=== PATIENT | female | born 1945 | race Caucasian/White ===

== ENCOUNTER → 2020-02-06 10:00 | Outpatient (BNVA) | payer MEDICARE, OTHER, SELFPAY | PROVIDERS: PCP Internal Medicine; Visit Provider Nurse Practitioner Gerontology | DX: M81.0 Age-related osteoporosis without current pathological fracture (principal) | CPT/HCPCS: 96401; 96402 ==

== ENCOUNTER → 2020-03-06 12:03 | Outpatient (BNVA) | payer MEDICARE, OTHER, SELFPAY | PROVIDERS: PCP Internal Medicine; Visit Provider Internal Medicine Endocrinology, Diabetes & Metabolism | DX: Z13.89 Encounter for screening for other disorder (principal) | CPT/HCPCS: Q3014 ==

== ENCOUNTER 2020-04-04 12:00 | Outpatient (RCR) | payer MEDICARE, OTHER, SELFPAY | END 2020-04-05 12:51 | disposition other institution (70) | LOC: HO.PT 12:00 | PROVIDERS: PCP Internal Medicine; Visit Provider Internal Medicine | DX: R26.81 Unsteadiness on feet (principal); R53.1 Weakness; Z98.890 Other specified postprocedural states; C85.89 Other specified types of non-Hodgkin lymphoma, extranodal and solid organ sites | CPT/HCPCS: 97110; 97112; 97116; 97163; 97530 ==

== ENCOUNTER 2020-05-23 10:50 | Outpatient (REF) | payer MEDICARE, OTHER, SELFPAY ==
--- NOTE | ~2020-05-23 | MM_ITS ---
EXAMINATION: MM SCREENING DIGITAL MAMMOGRAPHY, BILATERAL CLINICAL INFORMATION: Screening. Asymptomatic. The lifetime risk of breast cancer based on the Tyrer-Cuzick Model is 3%. COMPARISON: Mammography: 04/15/2018, 11/11/2016 TECHNIQUE: Digital mammography is performed in craniocaudal and mediolateral oblique views along with computer-aided detection (CAD). Technically challenging exam, patient in wheelchair, 2 technologists required for positioning. Exam tailored to patient capabilities. FINDINGS: There are scattered areas of fibroglandular density (ACR BI-RADS breast composition Category b). There are no significant masses, abnormal calcifications, or other abnormalities. Breast tissue composition borders on predominantly fatty. Stromal and fibroglandular densities are stable. There is shunt tubing again seen overlying the posterior medial right breast. MM/MM screening mammo BI IMPRESSION: No mammographic evidence of malignancy. ASSESSMENT: BI-RADS 2: Benign RECOMMENDATION: Routine annual mammography screening. This patient's information was entered into a reminder system with a target due date for their next mammogram.
--- NOTE | ~2020-05-23 | MM_ITS ---
EXAMINATION: BONE DENSITOMETRY CLINICAL INDICATION: Age-related osteoporosis without current pathological fracture. Marked L5 vertebral compression on prior CT. COMPARISON: Previous BD dated 04/15/2018 and baseline BD dated 11/30/2005. CT abdomen and pelvis 07/16/2019. TECHNIQUE: Using a [employer] DXA System (software version: 13.1) manufactured by [employer], dual-energy x-ray absorptiometry was performed of the lumbar spine and left hip. The images are of good technical quality. Summary results are attached. FINDINGS: AP SPINE L2-L4 (excluding L1): The data of L1-L4 has been changed to exclude the L1 vertebral body, because degenerative changes at this level may cause overestimation of lumbar spine density. Current: BMD 0.973 g/cm2, Z-score -0.5, T-score -1.9, osteopenia, 8.2% decrease from previous, 23.0% increase from baseline (<5% change is not significant). Prior: BMD 1.060 g/cm2. Baseline: BMD 0.791 g/cm2. LEFT FEMUR, NECK: Current: BMD 0.537 g/cm2, Z-score -1.9, T-score -3.6, osteoporosis. Prior: BMD 0.555 g/cm2. Baseline: BMD 0.719 g/cm2. LEFT FEMUR, TOTAL: Current: BMD 0.542 g/cm2, Z-score -2.3, T-score -3.7, osteoporosis, 9.5% decrease from previous, 27.2% decrease from baseline (<5% change is not significant). Prior: BMD 0.599 g/cm2. Baseline: BMD 0.745 g/cm2. IDENTIFIED RISK FACTORS: Osteoporosis, family history (parental hip fracture), history of fracture (adult). Early menopause, secondary osteoporosis, hysterectomy. HISTORY OF FRACTURE: Spine, femur/hip, humerus/shoulder. Other. MEDICATIONS: Prolia. Calcium supplements or multivitamin, vitamin D. MM/XR DEXA axial skeleton IMPRESSION: 1. DIAGNOSIS: Severe osteoporosis based on the lowest T-score value of -3.7 in the total femur and fracture history applying World Health Organization criteria. 2. 10-YEAR FRACTURE RISK PREDICTION, FRAX: Major osteoporotic fracture (clinical spine, forearm, hip or shoulder) 65.8%. Hip fracture 54.6%. 3. Treatment Recommendations: NOF guidelines recommend consideration for treatment in postmenopausal women and men age 50 and older presenting with the following: -A hip or vertebral (clinical or morphometric) fracture. -T-score less than or equal to -2.5 at the femoral neck or spine after appropriate evaluation to exclude secondary causes. -Low bone mass at the hip or spine and a 10-year fracture probability by FRAX of greater than or equal to 3% for hip fracture or greater than or equal to 20% for major osteoporotic fracture based on the [place] adapted WHO algorithm. 4. Other Recommendations: All treatment decisions require clinical judgment and consideration of individual patient factors, including patient preferences, comorbidities, previous drug use, risk factors not captured in the FRAX model (e.g. frailty, falls, vitamin D deficiency, increased bone turnover, interval significant decline in bone density) and possible under or overestimation of fracture risk by FRAX. Additional medical evaluation for secondary cause of low bone mineral density may be appropriate. FUTURE SCAN RECOMMENDATION: People with diagnosed cases of osteoporosis or at high risk for fracture should have regular bone mineral density tests. For patients eligible for Medicare, routine testing is allowed once every 2 years. The testing frequency can be increased to one year for patients who have rapidly progressing disease, those who are receiving or discontinuing medical therapy to restore bone mass, or have additional risk factors.
== END 2020-05-23 10:51 | disposition home or self-care (01) ==
LOC: HO.MAMMO 10:50
PROVIDERS: Visit Provider Internal Medicine Endocrinology, Diabetes & Metabolism
DX: M81.0 Age-related osteoporosis without current pathological fracture (principal); Z12.31 Encounter for screening mammogram for malignant neoplasm of breast; Z78.0 Asymptomatic menopausal state; Z79.899 Other long term (current) drug therapy; Z90.710 Acquired absence of both cervix and uterus
CPT/HCPCS: 77067; 77080

== ENCOUNTER → 2020-09-02 13:16 | Outpatient (BNVA) | payer MEDICARE, OTHER, SELFPAY | PROVIDERS: PCP Internal Medicine; Visit Provider Internal Medicine Endocrinology, Diabetes & Metabolism | DX: M81.0 Age-related osteoporosis without current pathological fracture (principal) | CPT/HCPCS: 96372; 99212 ==

== ENCOUNTER 2020-09-17 10:27 | Outpatient (REF) | payer MEDICARE, OTHER, SELFPAY ==
[2020-09-22 00:07] LABS: N-Telopeptide 29 (see note); NTXCreaRU 67 mg/dL (20-275)
== END 2020-09-17 10:28 | disposition home or self-care (01) ==
LOC: HO.10HDLNP 10:27
PROVIDERS: Visit Provider Internal Medicine Endocrinology, Diabetes & Metabolism
DX: M81.0 Age-related osteoporosis without current pathological fracture (principal)
CPT/HCPCS: 82523

== ENCOUNTER 2020-11-08 08:48 | Outpatient (REF) | payer MEDICARE, OTHER, SELFPAY ==
--- NOTE | ~2020-11-08 | CT_ITS ---
EXAMINATION: CT HEAD WITHOUT CONTRAST CLINICAL INFORMATION: Lymphoma. COMPARISON: CT brain 08/21/2019. TECHNIQUE: Contiguous axial imaging was performed from the skull base to vertex without intravenous administration of contrast. This CT examination was performed using dose optimization techniques as appropriate, variously including the following: *Automated exposure control *Adjustment of mA and/or kV according to patient size (this includes techniques or standardized protocols for targeted exams where dose is matched to indication/reason for exam; i.e. extremities or head) *Use of iterative reconstruction technique DLP: 1142 mGy-cm FINDINGS: There is no evidence of acute intracranial hemorrhage or territorial infarction. No abnormal mass effect or midline shift is seen. [place] to white matter differentiation is well preserved. No extra-axial fluid collections are identified. The lateral ventricles are symmetrical but moderately enlarged. There is a right ventriculostomy catheter extending from the right frontal region across the midline into the left lateral ventricle. It is similar to previous study. There is diffuse periventricular hypodensity in both cerebral hemispheres without mass effect. Several aniket holes are seen along the right and left frontal bones. The osseous structures and soft tissues are otherwise normal. The mastoid air cells and visualized portions of the paranasal sinuses are well aerated. 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 Distended lateral ventricles similar to previous study. Diffuse periventricular hypodensity in both cerebral hemispheres without mass effect.
== END 2020-11-08 08:49 | disposition home or self-care (01) ==
LOC: HO.CT 08:48
PROVIDERS: PCP Internal Medicine; Visit Provider Psychiatry & Neurology Neurology
DX: C85.89 Other specified types of non-Hodgkin lymphoma, extranodal and solid organ sites (principal)
CPT/HCPCS: 70450

== ENCOUNTER 2020-12-12 08:20 | Outpatient (REF) | payer MEDICARE, OTHER, SELFPAY ==
[2020-12-12 10:44] LABS: Anion Gap 11 (12-20); Blood Urea Nitrogen 19 mg/dL (9-16); Calcium 9.6 mg/dL (8.4-10.2); Carbon Dioxide 31 mmol/L (22-29); Chloride 102 mmol/L (96-108); Estimated Glomerular Filt Rate > 60; Glucose Fasting 204 mg/dL (60-99); Potassium 4.3 mmol/L (3.3-5.1); Sodium 140 mmol/L (135-145)
[2020-12-12 10:49] LABS: Estimated Average Glucose 183 mg/dL
== END 2020-12-12 08:21 | disposition home or self-care (01) ==
LOC: HO.10HDL 08:20
PROVIDERS: Visit Provider Internal Medicine
DX: E11.9 Type 2 diabetes mellitus without complications (principal); I10 Essential (primary) hypertension
CPT/HCPCS: 36415; 80048; 83036

== ENCOUNTER → 2021-07-02 13:59 | Outpatient (BNVA) | payer MEDICARE, OTHER, SELFPAY | PROVIDERS: PCP Internal Medicine; Visit Provider Internal Medicine Endocrinology, Diabetes & Metabolism | DX: M81.0 Age-related osteoporosis without current pathological fracture (principal) | CPT/HCPCS: 99212 ==

== ENCOUNTER 2021-08-05 14:44 | Outpatient (REF) | payer MEDICARE, OTHER, SELFPAY ==
[2021-08-05 08:45] LABS: MANUAL DIFF FLAG NO
[2021-08-05 08:51] LABS: Basophils Absolute Auto 0.1 X10*3/uL (0.0-0.2); Basophils Percent Auto 0.9 % (0-2); Eosinophils Absolute Auto 0.3 X10*3/uL (0.0-0.4); Eosinophils Percent Auto 3.8 % (0-4); Hematocrit 41.2 % (37.0-47.0); Hemoglobin 13.4 g/dl (12.0-16.0); Imm Gran Abs Auto 0.02 X10*3/uL (0.00-0.03); Imm Gran Pct Auto 0.3 % (0.0-0.4); Lymphocytes Absolute Auto 1.9 X10*3/uL (1.2-4.9); Lymphocytes Percent Auto 25.2 % (20-40); Mean Corpuscular HGB Conc 32.5 g/dl (31.0-35.0); Mean Corpuscular Hemoglobin 29.6 pg (27.0-33.0); Mean Corpuscular Volume 90.9 fL (80.0-98.0); Mean Platelet Volume 11.2 fL (9.4-12.3); Monocytes Absolute Auto 0.6 X10*3/uL (0.1-1.2); Monocytes Percent Auto 7.5 % (2-11); Neutrophils Absolute Auto 4.6 x10*3/uL (2.0-8.3); Neutrophils Percent Auto 62.3 % (45-73); Platelet Count 122 X10*3/uL (160-400); Red Blood Count 4.53 X10*6/uL (4.20-5.50); Red Cell Distribution Width 13.2 % (11.0-16.0); White Blood Count 7.5 X10*3/uL (4.8-10.8)
[2021-08-05 09:06] LABS: Estimated Average Glucose 148 mg/dL; Hemoglobin A1c % 6.8 %
[2021-08-05 09:08] LABS: Alanine Aminotransferase 33 U/L (0-31); Albumin Level 4.1 g/dL (3.5-5.0); Alkaline Phosphatase 123 U/L (39-117); Anion Gap 11 (12-20); Aspartate Amino Transferase 20 U/L (5-31); Bilirubin Total 0.5 mg/dL (0.0-1.0); Blood Urea Nitrogen 24 mg/dL (9-16); Carbon Dioxide 29 mmol/L (22-29); Chloride 104 mmol/L (96-108); Cholesterol 145 mg/dL; Estimated Glomerular Filt Rate > 60; Glucose Random 159 mg/dL (60-115); HDL Cholesterol 47 mg/dL; Iron 61 mcg/dL (30-160); LDL Cholesterol Calculated 82 mg/dl; Percent Iron Saturation 21 % (15-50); Potassium 4.1 mmol/L (3.3-5.1); Sodium 140 mmol/L (135-145); Total Iron Binding Capacity 292 mcg/dL (228-428); Total Protein 7.2 g/dL (6.5-8.0); Triglycerides 84 mg/dL; Unsaturated Iron Binding 231 ug/dL
[2021-08-05 09:29] LABS: Ferritin 76 ng/mL (10-250); Thyroid Stimulating Hormone 1.38 uIU/mL (0.32-4.0); Vitamin D 25-OH Total 63.6 ng/mL (>30)
[2021-08-05 09:31] LABS: Vitamin B12 712 pg/mL (200-900)
== END 2021-08-05 14:45 | disposition home or self-care (01) ==
LOC: HO.LHD 14:44
PROVIDERS: Visit Provider Internal Medicine
DX: R19.5 Other fecal abnormalities (principal); E11.9 Type 2 diabetes mellitus without complications; E78.00 Pure hypercholesterolemia, unspecified; E55.9 Vitamin D deficiency, unspecified; E53.8 Deficiency of other specified B group vitamins
CPT/HCPCS: 36415; 80053; 80061; 82306; 82607; 82728; 83036; 83540; 84443; 85025

== ENCOUNTER 2021-08-08 10:36 | Outpatient (REF) | payer MEDICARE, OTHER, SELFPAY ==
--- NOTE | ~2021-08-08 | MM_ITS ---
EXAMINATION: MM SCREENING DIGITAL MAMMOGRAPHY, BILATERAL CLINICAL INFORMATION: Screening. Asymptomatic. The lifetime risk of breast cancer based on the Tyrer-Cuzick Model is 3%. COMPARISON: Mammography: 05/23/2020, 04/15/2018, 11/11/2016 TECHNIQUE: Digital mammography is performed in craniocaudal and mediolateral oblique views along with computer-aided detection (CAD). Technically challenging exam requiring 2 technologists. Patient in wheelchair. Exam tailored to patient capabilities. 2-D FFDM imaging performed. FINDINGS: There are scattered areas of fibroglandular density (ACR BI-RADS breast composition Category b). Background stromal markings are similar to prior studies. No developing density or interval architectural abnormality. There are some uniform punctate regional calcifications medial right breast similar to prior exams. Shunt catheter tubing again noted overlying the posterior medial right breast. No skin thickening or coarsening of the Misael's ligaments. MM/MM screening mammo BI IMPRESSION: -No significant changes from prior exams. -Technically challenging exam, tailored to patient capabilities. ASSESSMENT: BI-RADS 2: Benign RECOMMENDATION: Routine annual mammography screening. This patient's information was entered into a reminder system with a target due date for their next mammogram.
== END 2021-08-08 10:37 | disposition home or self-care (01) ==
LOC: HO.MAMMO 10:36
PROVIDERS: PCP Internal Medicine; Visit Provider Internal Medicine
DX: Z12.31 Encounter for screening mammogram for malignant neoplasm of breast (principal)
CPT/HCPCS: 77063; 77067

== ENCOUNTER → 2021-08-14 12:16 | Outpatient (BNVA) | payer MEDICARE, OTHER, SELFPAY | PROVIDERS: PCP Internal Medicine; Visit Provider Internal Medicine Endocrinology, Diabetes & Metabolism | DX: M81.0 Age-related osteoporosis without current pathological fracture (principal) | CPT/HCPCS: 96372; J3111 ==

== ENCOUNTER → 2021-09-15 09:25 | Outpatient (BNVA) | payer MEDICARE, OTHER, SELFPAY | PROVIDERS: PCP Internal Medicine; Visit Provider Internal Medicine | DX: M81.0 Age-related osteoporosis without current pathological fracture (principal) | CPT/HCPCS: 96372; J3111 ==

== ENCOUNTER → 2021-10-16 11:53 | Outpatient (BNVA) | payer MEDICARE, OTHER, SELFPAY | PROVIDERS: PCP Internal Medicine; Visit Provider Internal Medicine Endocrinology, Diabetes & Metabolism | DX: M81.0 Age-related osteoporosis without current pathological fracture (principal) | CPT/HCPCS: 96372; J3111 ==

== ENCOUNTER 2021-11-03 06:36 | Day surgery (SDC) | payer MEDICARE, OTHER, SELFPAY ==
[2021-10-29 10:32] VITALS: BMI 26.6
--- NOTE | 2021-10-31 08:38 | HO.ANESPROP2 ---
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 Mother No problems noted. Surgical History Surgical History History of appendectomy History of brain shunt History of hip surgery History of lumbar laminectomy Hx of colonoscopy Hx of hysterectomy Social History Social History Patient Tobacco Use Status: Former Tobacco user Tobacco use type: Cigarette Cigarettes Per Day: 20 Years Smoked: 12 Are you DNR?: No Advance Directives: No Advance Directives Information Provided: Yes Recently lost weight without trying: No Nutrition Risks: No Nutritional Risk Meds Allergies Allergy/AdvReac Type Severity Reaction Status Date / Time Penicillins [PENICILLINS] Allergy Unknown Swelling Verified 11/03/21 07:11 phenytoin [From DILANTIN] Allergy Unknown Hives Verified 11/03/21 07:11 Home Medications Medication Instructions Recorded Confirmed Last Taken Type ascorbate calcium (vitamin C) 500 1,000 mg PO BID 03/06/20 10/29/21 11/02/21 History mg tablet blood sugar diagnostic #10 ea 03/06/20 09/02/20 Unknown History buspirone 5 mg tablet 5 mg PO DAILY 03/06/20 11/03/21 11/03/21 History carvedilol 12.5 mg tablet 12.5 mg PO BID 03/06/20 10/29/21 11/03/21 History metformin 500 mg tablet,extended 500 mg PO DAILY 03/06/20 10/29/21 11/02/21 History release 24 hr nystatin 100,000 unit/gram topical 1 appl topical QID 0110/29/21 11/02/21 History powder simvastatin 20 mg tablet 20 mg PO BEDTIME 03/06/20 10/29/21 11/02/21 History lisinopril 5 mg tablet 5 mg PO DAILY 09/02/20 10/29/21 11/02/21 History oxybutynin chloride 5 mg tablet 5 mg PO BEDTIME 09/02/20 10/29/21 11/02/21 History sitagliptin 25 mg tablet (Januvia) 25 mg PO DAILY 07/02/21 10/29/21 11/02/21 History Exam Exam Date and Time: October 31, 2021 0838 Height,Weight and Vital Signs: Height 5 ft 6 in Weight 74.843 kg Pertinent Lab Results Pertinent Lab Results: Laboratory Tests 08/05/21 08/05/21 08:18 08:18 WBC 7.5 Hgb 13.4 Hct 41.2 Plt Count 122 L Sodium 140 Potassium 4.1 Chloride 104 Carbon Dioxide 29 BUN 24 H Creatinine 0.81 Narrative Narrative: CT head/brain wo con 2020 IMPRESSION: Right SPECIAL EDUCATION SUPERINTENDENT shunt catheter tip in the left lateral ventricle, stable. Distended lateral ventricles similar to previous study. ? Diffuse periventricular hypodensity in both cerebral hemispheres without mass effect. Assessment and Plan Assessment Anesthesia Assessment: Chart Reviewed Documented by User: Delmi Ramírez MD 11/03/21 07:56 [facility] Active Problems Active Problems: All Active Problems (Updated 10/29/21 @ 10:27 by Tammi Bravo RN) Osteoporosis (Acute) H/o brain tumor. 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 Mother No problems noted. Family history of problems with anesthesia: No Surgical History Surgical History History of appendectomy History of brain shunt History of hip surgery History of lumbar laminectomy Hx of colonoscopy Hx of hysterectomy History of Problems with Anesthesia: No Social History Social History Patient Tobacco Use Status: Former Tobacco user Tobacco use type: Cigarette Cigarettes Per Day: 20 Years Smoked: 12 Are you DNR?: No Advance Directives: No Advance Directives Information Provided: Yes Recently lost weight without trying: No Nutrition Risks: No Nutritional Risk Meds Allergies Allergy/AdvReac Type Severity Reaction Status Date / Time Penicillins [PENICILLINS] Allergy Unknown Swelling Verified 11/03/21 07:11 phenytoin [From DILANTIN] Allergy Unknown Hives Verified 11/03/21 07:11 Home Medications Medication Instructions Recorded Confirmed Last Taken Type ascorbate calcium (vitamin C) 500 1,000 mg PO BID 03/06/20 10/29/21 11/02/21 History mg tablet blood sugar diagnostic #10 ea 03/06/20 09/02/20 Unknown History buspirone 5 mg tablet 5 mg PO DAILY 03/06/20 11/03/21 11/03/21 History carvedilol 12.5 mg tablet 12.5 mg PO BID 03/06/20 10/29/21 11/03/21 History metformin 500 mg tablet,extended 500 mg PO DAILY 03/06/20 10/29/21 11/02/21 History release 24 hr nystatin 100,000 unit/gram topical 1 appl topical QID 03/06/20 10/29/21 11/02/21 History powder simvastatin 20 mg tablet 20 mg PO BEDTIME 03/06/20 10/29/21 11/02/21 History lisinopril 5 mg tablet 5 mg PO DAILY 09/02/20 10/29/21 11/02/21 History oxybutynin chloride 5 mg tablet 5 mg PO BEDTIME 09/02/20 10/29/21 11/02/21 History sitagliptin 25 mg tablet (Januvia) 25 mg PO DAILY 07/02/21 10/29/21 11/02/21 History Exam Height,Weight and Vital Signs: Height 5 ft 6 in Weight 74.843 kg Vital Signs Temp Pulse Resp BP Pulse Ox O2 Del Method 11/03/21 06:39 97.5 F 86 20 154/83 H 97 Room Air Pertinent Lab Results Pertinent Lab Results: Laboratory Tests 08/05/21 08/05/21 08:18 08:18 WBC 7.5 Hgb 13.4 Hct 41.2 Plt Count 122 L Sodium 140 Potassium 4.1 Chloride 104 Carbon Dioxide 29 BUN 24 H Creatinine 0.81 Lab Results 11/03/21 Range/Units 06:49 POC Glucose 143 H (60-115) mg/dL Airway Mallampati Class: III TM Dist: >3cm Neck ROM: Full Loose/Missing/Broken Teeth: No Heart: RRR Lungs: CTAB Assessment and Plan Assessment Anesthesia Assessment: Anesthesia Plan Discussed Final Anesthetic Review Family History of Problems with Anesthesia: No History of Problems with Anesthesia: No NPO: Yes ASA Class: III Final Preanesthetic Review: No Changes in Pt Med Stat, Meds/Allgs Chart Reviewed, Consent Obtained/Reviewed and Anes Risks/Benef Reviewed Patient Risk: Intermediate Procedure Risk: Low Assessment/Block/Sedation in SS: Assess/Block/Sedation-SS Anesthetic Plan Anesthetic Plan: MAC: Disposition: Standard PACU
[2021-11-03 06:39] VITALS: BP 154/83; PULSE 86; RESP 20; TEMP 36.4; O2SAT 97
[2021-11-03 06:53] LABS: Glucose, Whole Blood 143 mg/dL (60-115)
[2021-11-03] MEDS: Lactated Ringers 1,000 ML 100 ML IVCONT (07:08)
[2021-11-03 08:37] VITALS: BP 144/75; PULSE 86; RESP 16; TEMP 36.7; O2SAT 100
--- NOTE | 2021-11-03 08:40 | PM.OP ---
Brief Operative Note Date of Service: 11/03/21 Pre-op diagnosis: Heme + stool Post-op diagnosis: other (Polyp, Lipoma) Procedure: Colonoscopy to the cecum with bx, and hot snare polypectomy Surgeon: Evaristo Reyes Anesthesia: MAC Was an Public Health Training Assistant used for this Procedure?: No Estimated blood loss (mL): 2.0 Pathology: other (A. Lipoma at Hepatic flexure B. Rectal polyp) Condition: stable Disposition: PACU
[2021-11-03 08:52] VITALS: BP 156/81; PULSE 85; RESP 18; TEMP 36.7; O2SAT 96
--- NOTE | 2021-11-03 09:10 | OP_ITS ---
SURGEON: Evaristo Reyes MD INDICATIONS: The patient presents for evaluation of heme-positive stool. Full consent has been obtained from her for this, including risks of bleeding and perforation. PREOPERATIVE DIAGNOSIS: Heme-positive stool. POSTOPERATIVE DIAGNOSIS: Heme-positive stool, small rectal polyp, lipoma, diverticulosis, and internal hemorrhoids PROCEDURE PERFORMED: Colonoscopy to the cecum with hot snare polypectomy and biopsy. ESTIMATED BLOOD LOSS: COMPLICATIONS: ANESTHESIA: Monitored anesthesia care. ASSISTANTS: SPECIMENS: DESCRIPTION OF PROCEDURE: The patient was placed in the left lateral decubitus position. The digital rectal exam revealed no abnormalities. The Olympus video pediatric colonoscope was entered into the rectum and advanced easily to the cecum. Once in the cecum, I did identify a normal-appearing cecal pouch with appendiceal orifice, and a normal-appearing ileocecal valve. The entire cecum was well visualized and appeared normal. The ileocecal valve appeared normal. The scope was then slowly withdrawn assessing all mucosal surfaces carefully. Preparation was excellent. In the area of the hepatic flexure was a yellowish soft lipoma, which was biopsied twice. There was no sign of any mucosal abnormality. In the rectum was an approximately 6 to 8 mm polyp, which was removed by hot snare polypectomy, recovered by suction. The polypectomy site appeared clean, without any sign of residual polyp nor bleeding. I did not visualize any other polyps, colitis, nor angiodysplasia. There was a mild amount of sigmoid diverticulosis. In the rectum, the scope was retroflexed visualizing internal hemorrhoids, but no other pathology. The rectal mucosa appeared normal. Scope was straightened and withdrawn from the patient. She tolerated the procedure well and was returned to the recovery area in stable condition. IMPRESSION: 1. One rectal polyp, status post hot snare polypectomy. 2. Lipoma, status post biopsy. 3. Diverticulosis. 4. Internal hemorrhoids. PLAN: The results of the pathology will be checked. Given these minimal findings and her age, I do not think, she would need any further colonoscopies from a screening standpoint in the future. She was advised not to use any aspirin or NSAIDs for 1 week. She will see me on a p.r.n. basis. This has all been discussed with her . MD MARCI Cartagena/VICTORIANO / [phone]
== END 2021-11-03 09:24 | disposition home or self-care (01) ==
PROVIDERS: PCP Internal Medicine; Visit Provider Internal Medicine
PROC: 0DJD8ZZ Inspection of Lower Intestinal Tract, Via Natural or Artificial Opening Endoscopic (ICD-10-PCS; CPT 45378; principal; 2021-11-03 07:30)
DX: R19.5 Other fecal abnormalities (principal); D17.5 Benign lipomatous neoplasm of intra-abdominal organs; K62.1 Rectal polyp; K57.30 Diverticulosis of large intestine without perforation or abscess without bleeding; K64.8 Other hemorrhoids; E11.9 Type 2 diabetes mellitus without complications; E78.5 Hyperlipidemia, unspecified; G57.91 Unspecified mononeuropathy of right lower limb; M81.0 Age-related osteoporosis without current pathological fracture; Z79.84 Long term (current) use of oral hypoglycemic drugs; Z79.899 Other long term (current) drug therapy; Z85.72 Personal history of non-Hodgkin lymphomas; Z92.21 Personal history of antineoplastic chemotherapy; Z92.3 Personal history of irradiation; Z98.890 Other specified postprocedural states; Z87.891 Personal history of nicotine dependence
CPT/HCPCS: 45385; 45380; 82947; 88305; 88342

== ENCOUNTER → 2021-11-18 10:52 | Outpatient (BNVA) | payer MEDICARE, OTHER, SELFPAY | PROVIDERS: PCP Internal Medicine; Visit Provider Internal Medicine Endocrinology, Diabetes & Metabolism | DX: M81.0 Age-related osteoporosis without current pathological fracture (principal) | CPT/HCPCS: 96372; J3111 ==

== ENCOUNTER → 2021-12-16 10:59 | Outpatient (BNVA) | payer MEDICARE, OTHER, SELFPAY | PROVIDERS: PCP Internal Medicine; Visit Provider Internal Medicine Endocrinology, Diabetes & Metabolism | DX: M81.0 Age-related osteoporosis without current pathological fracture (principal) | CPT/HCPCS: 96372; J3111 ==

== ENCOUNTER → 2021-12-31 14:00 | Outpatient (BNVA) | payer MEDICARE, OTHER, SELFPAY | PROVIDERS: PCP Internal Medicine; Visit Provider Internal Medicine Endocrinology, Diabetes & Metabolism | DX: M81.0 Age-related osteoporosis without current pathological fracture (principal); Z99.3 Dependence on wheelchair | CPT/HCPCS: 99212 ==

== ENCOUNTER → 2022-01-15 10:51 | Outpatient (BNVA) | payer MEDICARE, OTHER, SELFPAY | PROVIDERS: PCP Internal Medicine; Visit Provider Internal Medicine Endocrinology, Diabetes & Metabolism | DX: M81.0 Age-related osteoporosis without current pathological fracture (principal) | CPT/HCPCS: 96372; J3111 ==

== ENCOUNTER → 2022-02-18 10:53 | Outpatient (BNVA) | payer MEDICARE, OTHER, SELFPAY | PROVIDERS: PCP Internal Medicine; Visit Provider Internal Medicine Endocrinology, Diabetes & Metabolism | DX: M81.0 Age-related osteoporosis without current pathological fracture (principal) | CPT/HCPCS: 96372; J3111 ==

== ENCOUNTER → 2022-03-24 10:57 | Outpatient (BNVA) | payer MEDICARE, OTHER, SELFPAY | PROVIDERS: PCP Internal Medicine; Visit Provider Internal Medicine Endocrinology, Diabetes & Metabolism | DX: M81.0 Age-related osteoporosis without current pathological fracture (principal) | CPT/HCPCS: 96372; J3111 ==

== ENCOUNTER → 2022-04-21 10:59 | Outpatient (BNVA) | payer MEDICARE, OTHER, SELFPAY | PROVIDERS: PCP Internal Medicine; Visit Provider Internal Medicine Endocrinology, Diabetes & Metabolism | DX: M81.0 Age-related osteoporosis without current pathological fracture (principal) | CPT/HCPCS: 96372; J3111 ==

== ENCOUNTER → 2022-05-22 10:53 | Outpatient (BNVA) | payer MEDICARE, OTHER, SELFPAY | PROVIDERS: PCP Internal Medicine; Visit Provider Internal Medicine Endocrinology, Diabetes & Metabolism | DX: M81.0 Age-related osteoporosis without current pathological fracture (principal) | CPT/HCPCS: 96372; J3111 ==

== ENCOUNTER → 2022-06-23 10:56 | Outpatient (BNVA) | payer MEDICARE, OTHER, SELFPAY | PROVIDERS: PCP Internal Medicine; Visit Provider Internal Medicine Endocrinology, Diabetes & Metabolism | DX: M81.0 Age-related osteoporosis without current pathological fracture (principal); Z79.620 Long term (current) use of immunosuppressive biologic; Z99.3 Dependence on wheelchair | CPT/HCPCS: 96372; 99212; J3111 ==

== ENCOUNTER 2022-07-16 10:40 | Outpatient (REF) | payer MEDICARE, OTHER, SELFPAY ==
--- NOTE | ~2022-07-16 | MM_ITS ---
EXAMINATION: BONE DENSITOMETRY CLINICAL INDICATION: Age-related osteoporosis without current pathological fracture. COMPARISON: Previous BD dated 05/23/2020 and baseline BD dated 11/30/2005. TECHNIQUE: Using a [employer] DXA System (software version: 13.1) manufactured by [employer], dual-energy x-ray absorptiometry was performed of the lumbar spine and left hip. The images are of good technical quality. Summary results are attached. FINDINGS: AP SPINE L2-L4 (excluding L1): The data of L1-L4 has been changed to exclude the L1 vertebral body, because degenerative changes at this level may cause overestimation of lumbar spine density. Current: BMD 1.188 g/cm2, Z-score 1.3, T-score -0.1, normal, 22.1% increase from previous, 50.2% increase from baseline (<5% change is not significant). Prior: BMD 0.973 g/cm2. Baseline: BMD 0.791 g/cm2. LEFT FEMUR, NECK: Current: BMD 0.528 g/cm2, Z-score -1.9, T-score -3.7, osteoporosis. Prior: BMD 0.537 g/cm2. Baseline: BMD 0.719 g/cm2. LEFT FEMUR, TOTAL: Current: BMD 0.568 g/cm2, Z-score -1.9, T-score -3.5, osteoporosis, 4.8% increase from previous, 23.8% decrease from baseline (<5% change is not significant). Prior: BMD 0.542 g/cm2. Baseline: BMD 0.745 g/cm2. IDENTIFIED RISK FACTORS: Low calcium intake, family history (parental hip fracture), osteoporosis, history of fracture (adult), menopause, hysterectomy, bilateral oophorectomy, secondary osteoporosis. HISTORY OF FRACTURE: Spine, hip, wrist, shoulder. Other. MEDICATIONS: Calcium supplements or multivitamin, vitamin D. MM/XR DEXA axial skeleton IMPRESSION: 1. DIAGNOSIS: Osteoporosis based on the lowest T-score value of -3.7 in the femoral neck applying World Health Organization criteria. 2. 10-YEAR FRACTURE RISK PREDICTION, FRAX: According to the guidelines, FRAX calculation should only be performed on patients in the osteopenia bone density category. Therefore, FRAX was not performed on this patient. 3. Treatment Recommendations: NOF guidelines recommend consideration for treatment in postmenopausal women and men age 50 and older presenting with the following: -A hip or vertebral (clinical or morphometric) fracture. -T-score less than or equal to -2.5 at the femoral neck or spine after appropriate evaluation to exclude secondary causes. -Low bone mass at the hip or spine and a 10-year fracture probability by FRAX of greater than or equal to 3% for hip fracture or greater than or equal to 20% for major osteoporotic fracture based on the [place] adapted WHO algorithm. 4. Other Recommendations: All treatment decisions require clinical judgment and consideration of individual patient factors, including patient preferences, comorbidities, previous drug use, risk factors not captured in the FRAX model (e.g. frailty, falls, vitamin D deficiency, increased bone turnover, interval significant decline in bone density) and possible under or overestimation of fracture risk by FRAX. Additional medical evaluation for secondary cause of low bone mineral density may be appropriate. FUTURE SCAN RECOMMENDATION: People with diagnosed cases of osteoporosis or at high risk for fracture should have regular bone mineral density tests. For patients eligible for Medicare, routine testing is allowed once every 2 years. The testing frequency can be increased to one year for patients who have rapidly progressing disease, those who are receiving or discontinuing medical therapy to restore bone mass, or have additional risk factors.
== END 2022-07-16 10:41 | disposition home or self-care (01) ==
LOC: HO.MAMMO 10:40
PROVIDERS: PCP Internal Medicine; Visit Provider Internal Medicine Endocrinology, Diabetes & Metabolism
DX: Z13.820 Encounter for screening for osteoporosis (principal); Z78.0 Asymptomatic menopausal state; M81.0 Age-related osteoporosis without current pathological fracture
CPT/HCPCS: 77080

== ENCOUNTER → 2022-07-28 11:07 | Outpatient (BNVA) | payer MEDICARE, OTHER, SELFPAY | PROVIDERS: PCP Internal Medicine; Visit Provider Internal Medicine Endocrinology, Diabetes & Metabolism | DX: M81.0 Age-related osteoporosis without current pathological fracture (principal) | CPT/HCPCS: 96372; 99212; J3111 ==

== ENCOUNTER 2022-08-05 08:46 | Outpatient (REF) | payer MEDICARE, OTHER, SELFPAY ==
[2022-08-10 14:32] LABS: Calcium (PTHI) 9.8 mg/dL (8.6-10.4); PTHI 48 pg/mL (16-77)
== END 2022-08-05 08:47 | disposition home or self-care (01) ==
LOC: HO.10HDL 08:46
PROVIDERS: Visit Provider Internal Medicine Endocrinology, Diabetes & Metabolism
DX: M81.0 Age-related osteoporosis without current pathological fracture (principal)
CPT/HCPCS: 36415; 83970

== ENCOUNTER 2022-08-25 11:09 | Outpatient (REF) | payer MEDICARE, OTHER, SELFPAY ==
--- NOTE | ~2022-08-25 | MM_ITS ---
EXAMINATION: MM SCREENING DIGITAL BREAST TOMOSYNTHESIS, BILATERAL CLINICAL INFORMATION: Screening. Asymptomatic. The lifetime risk of breast cancer based on the Tyrer-Cuzick Model is 8.8%. COMPARISON: Mammography: This study is compared with prior exams dating back to 2019. TECHNIQUE: Digital breast tomosynthesis is performed in both the craniocaudal and mediolateral oblique views along with computer-aided detection (CAD). Synthesized 2D images are generated from the tomosynthesis. FINDINGS: There are scattered areas of fibroglandular density (ACR BI-RADS breast composition Category b). There are no significant masses, abnormal calcifications, or other abnormalities. MM/MM tomosynthesis screening BI IMPRESSION: No mammographic evidence of malignancy. ASSESSMENT: BI-RADS BI-RADS 1 - Negative RECOMMENDATION: Routine annual mammography screening. 1 year F/U This examination should not preclude the clinical evaluation of a suspicious palpable abnormality. This patient's information was entered into a reminder system with a target due date for their next mammogram.
== END 2022-08-25 11:10 | disposition home or self-care (01) ==
LOC: HO.MAMMO 11:09
PROVIDERS: PCP Internal Medicine; Visit Provider Internal Medicine
DX: Z12.31 Encounter for screening mammogram for malignant neoplasm of breast (principal)
CPT/HCPCS: 77063; 77067

== ENCOUNTER → 2022-08-25 11:15 | Outpatient (BNV) | payer MEDICARE, OTHER, SELFPAY | PROVIDERS: PCP Internal Medicine; Visit Provider Radiology Diagnostic Radiology | DX: Z12.31 Encounter for screening mammogram for malignant neoplasm of breast (principal) | CPT/HCPCS: 77063; 77067 ==

== ENCOUNTER 2022-08-28 11:20 | Outpatient (AMB) | payer MEDICARE, OTHER, SELFPAY ==
--- NOTE | 2022-08-28 13:27 | AM.OFFVISNUR ---
Intake Intake Visit Reasons: Osteoporosis/prolia inj. Allergies Penicillins [PENICILLINS] Allergy (Unknown, Verified 07/28/22 11:13) Swelling phenytoin [From DILANTIN] Allergy (Unknown, Verified 07/28/22 11:13) Hives Office Meds Prolia Performing Provider: Evaristo Douglas MD Administered by: Nathan Salmeron RN on 08/28/22 11:30 Dose Route Admin Location Lot Number Expiration Date [place] Molder Hand 60 mg subcut left arm [id number] 10/15/24 42694-599-48 [facility] Comments: consent obtained for prolia. Coding Diagnoses Assessment & Plan Assessment & Plan Orders: Orders AMB Denosumab Injection Patient Supplied Today M81.0 - Age-related osteoporosis without current pathological fracture
== END 2022-08-28 11:45 | disposition home or self-care (01) ==
PROVIDERS: PCP Internal Medicine; Visit Provider Internal Medicine Endocrinology, Diabetes & Metabolism
DX: M81.0 Age-related osteoporosis without current pathological fracture (principal)
CPT/HCPCS: J0897

== ENCOUNTER → 2022-08-28 11:20 | Outpatient (BNVA) | payer MEDICARE, OTHER, SELFPAY | PROVIDERS: PCP Internal Medicine; Visit Provider Internal Medicine Endocrinology, Diabetes & Metabolism | DX: M81.0 Age-related osteoporosis without current pathological fracture (principal) | CPT/HCPCS: 96372 ==

== ENCOUNTER 2023-03-01 10:55 | Outpatient (AMB) | payer MEDICARE, OTHER, SELFPAY ==
--- NOTE | 2023-03-01 11:06 | AM.OFFVISNUR ---
Intake Intake Visit Reasons: Osteoporosis/prolia inj Allergies Penicillins [PENICILLINS] Allergy (Unknown, Verified 07/28/22 11:13) Swelling phenytoin [From DILANTIN] Allergy (Unknown, Verified 07/28/22 11:13) Hives Office Meds Prolia 60 mg/mL subcutaneous syringe Performing Provider: Evaristo Douglas MD Performing Location: [facility] [place] Endocrinology Administered by: Thomas Sawyer RN on 03/01/23 11:06 Dose Route Admin Location Dispensed Lot Number Expiration Date [facility] [employer] Land[employer] Supervisor 60 mg subcut L arm 1 mL [id number] 07/15/25 [facility] Comments: Patient signed consent. Denies adverse reactions Coding Assessment & Plan Assessment & Plan Orders: Orders AMB Denosumab Injection Patient Supplied Today M81.0 - Age-related osteoporosis without current pathological fracture
== END 2023-03-01 11:06 | disposition home or self-care (01) ==
PROVIDERS: PCP Internal Medicine; Visit Provider Internal Medicine Endocrinology, Diabetes & Metabolism
DX: M81.0 Age-related osteoporosis without current pathological fracture (principal)

== ENCOUNTER → 2023-03-01 10:55 | Outpatient (BNVA) | payer MEDICARE, OTHER, SELFPAY | PROVIDERS: PCP Internal Medicine; Visit Provider Internal Medicine Endocrinology, Diabetes & Metabolism | DX: M81.0 Age-related osteoporosis without current pathological fracture (principal) | CPT/HCPCS: 96372; J0897 ==

== ENCOUNTER 2023-08-30 09:07 | Outpatient (REF) | payer MEDICARE, OTHER, SELFPAY ==
[2023-08-30 11:02] LABS: Anion Gap 13 (12-20); Blood Urea Nitrogen 15 mg/dL (9-16); Carbon Dioxide 27 mmol/L (22-29); Chloride 104 mmol/L (96-108); Estimated Glomerular Filt Rate > 60; Glucose Random 215 mg/dL (60-115); Potassium 4.3 mmol/L (3.3-5.1); Sodium 140 mmol/L (135-145)
== END 2023-08-30 09:08 | disposition home or self-care (01) ==
LOC: HO.10HDL 09:07
PROVIDERS: Visit Provider Internal Medicine Endocrinology, Diabetes & Metabolism
DX: M81.0 Age-related osteoporosis without current pathological fracture (principal)
CPT/HCPCS: 36415; 80048; 82040

== ENCOUNTER 2023-08-31 10:56 | Outpatient (AMB) | payer MEDICARE, OTHER, SELFPAY ==
--- NOTE | 2023-08-31 11:12 | AM.OFFVISNUR ---
Intake Visit Reasons: Prolia Allergies Penicillins [PENICILLINS] Allergy (Unknown, Verified 07/28/22 11:13) Swelling phenytoin [From DILANTIN] Allergy (Unknown, Verified 07/28/22 11:13) Hives Office Meds Prolia 60 mg/mL subcutaneous syringe Performing Provider: Evaristo Douglas MD Performing Location: [facility] Endocrinology Administered by: Daisy Edmonds LPN on 08/31/23 11:12 Dose Route Admin Location Dispensed Lot Number Expiration Date [facility] Programming Development Project Manager 60 mg subcut Right upper arm 1 mL [id number] 12/15/25 AMGEN Assessment & Plan Assessment & Plan Orders: Orders AMB Denosumab Injection Patient Supplied Today M81.0 - Age-related osteoporosis without current pathological fracture Medications: New Prolia (denosumab) 60 mg subcut ONCE 1 mL 0RF NS M81.0 - Age-related osteoporosis without current pathological fracture
== END 2023-08-31 11:10 | disposition home or self-care (01) ==
PROVIDERS: PCP Internal Medicine; Visit Provider Internal Medicine Endocrinology, Diabetes & Metabolism
DX: M81.0 Age-related osteoporosis without current pathological fracture (principal)

== ENCOUNTER → 2023-08-31 10:56 | Outpatient (BNVA) | payer MEDICARE, OTHER, SELFPAY | PROVIDERS: PCP Internal Medicine; Visit Provider Internal Medicine Endocrinology, Diabetes & Metabolism | DX: M81.0 Age-related osteoporosis without current pathological fracture (principal) | CPT/HCPCS: 96372; J0897 ==

== ENCOUNTER 2023-10-20 13:22 | Outpatient (REF) | payer MEDICARE, OTHER, SELFPAY ==
--- NOTE | ~2023-10-20 | MM_ITS ---
EXAMINATION: MM SCREENING DIGITAL BREAST TOMOSYNTHESIS, BILATERAL CLINICAL INFORMATION: Screening. Asymptomatic. COMPARISON: Mammography: Comparison is made with available priors TECHNIQUE: Digital breast mammography with tomosynthesis is performed in both the craniocaudal and mediolateral oblique views along with computer-aided detection (CAD). FINDINGS: There are scattered areas of fibroglandular density (ACR BI-RADS breast composition Category b). Exam is limited due to patient's physical limitations. Within these limitations: There are no significant masses, abnormal calcifications, or other abnormalities. MM/MM tomosynthesis screening BI IMPRESSION: No mammographic evidence of malignancy. ASSESSMENT: BI-RADS BI-RADS 1 - Negative RECOMMENDATION: Routine annual mammography screening. 1 year F/U This examination should not preclude the clinical evaluation of a suspicious palpable abnormality. This patient's information was entered into a reminder system with a target due date for their next mammogram. Electronically signed by: Kia Farmer DO 11/07/2023 09:36 AM EDT
== END 2023-10-20 13:23 | disposition home or self-care (01) ==
LOC: HO.MAMMO 13:22
PROVIDERS: PCP Internal Medicine; Visit Provider Internal Medicine
DX: Z12.31 Encounter for screening mammogram for malignant neoplasm of breast (principal)
CPT/HCPCS: 77063; 77067

== ENCOUNTER → 2023-10-20 13:30 | Outpatient (BNV) | payer MEDICARE, OTHER, SELFPAY | PROVIDERS: PCP Internal Medicine; Visit Provider Internal Medicine | DX: Z12.31 Encounter for screening mammogram for malignant neoplasm of breast (principal) | CPT/HCPCS: 77063; 77067 ==

== ENCOUNTER 2024-02-25 14:43 | Outpatient (REF) | payer MEDICARE, OTHER, SELFPAY ==
--- OUTSIDE RECORDS SUMMARY | 2024-02-25 14:47 | XMS_ITS ---
Author Organization [facility] Address [address] [place] [address] Care Team Providers Care Glass Handler Name Role Phone Nathan Nickerson MD Primary Care Provider Riley Otoole Unavailable [phone] Allergies Allergen (clinical drug ingredient) Drug/Non Drug Allergy documented on EMR Reaction Allergy Type Onset Date Status Jazmyn type anesthetics (uncoded) can't remember Allergy Active Dilantin rash Drug Allergy Active Penicillin rash Drug Allergy Active REASON FOR VISIT At Risk Footcare Medications Medication SIG (Take, Route, Frequency, Duration) Notes Start Date End Date Status Simvastatin 20 MG Orally Once a day Active Extra Depth Orthopedic Shoes (1 Pair) with Customized Heat Molded Multidensity Innersoles (3 Pair) as directed Dx: NIDDM/Polyneuropathy (E11.42), Hammertoe Foot Deformity (M20.41,M20.42), Preulcerative Skin Lesion(s) (L85.1 05/11/2023 Active Vitamin D Active oxyBUTYnin Active Lovenox Active Lisinopril Active Glimepiride Not-Taki ng Multi Vitamin Active Metformin & Diet Manage Prod 500MG once a day Active busPIRone HCl Active Vitamin E 1000 UNIT Orally Not-Taking Lisinopril Not-Takin g clonazePAM Not-Takin g Calcium Citrate Not- Taking Gabapentin 300 MG Once a day N ot-Taking Social History Tobacco Use: Social History Observation Description Date Details (start date - stop date) Never Smoker NA - NA Tobacco Use/Smoking Question Answer Notes Are you a: nonsmoker Alcohol Screen Question Answer Notes Did you have a drink containing alcohol in the p ast year? No Points 0 Interpretation Negative Tobacco use other than smoking: Question Answer Notes Are you an other tobacco user? No Vital Signs Height 5 ft 7 in in 08/10/2023 Weight 160 lbs 08/10/2023 BMI 25.06 kg/m2 08/10/2023 Blood pressure systolic 120 mm Hg 08/10/19 Blood pressure diastolic 80 mm Hg 024 Procedures Procedure Date Ordered Date Performed Result Body Sit e 38450-KSMEOIM NAIL, 6 OR MORE 08/10/2023 N/A 86127-UZNV SKIN LESIONS, 2 TO 4 08/10/2023 N/A Encounters Encounter Location Date Provider Diagnosis [facility] [address] [address] 08/10/2023 Riley Rodrigues Type 2 diabetes mellitus with diabetic polyneuropathy E11.42 and Tinea unguium B35.1 Assessments Encounter Date Diagnosis (ICD Code) Assessment Notes Treatment Notes Treatment Clinical Notes Section Notes 08/10/2023 Type 2 diabetes mellitus with diabetic polyneuropathy (ICD-10 - E11.42) 08/10/2023 Tinea unguium (ICD-10 - B35.1) 08/10/2023 Other Plan Of Treatment Pending Test Test Name Order Date [id number]-YIDPJJD NAIL, 6 OR MORE 08/10/2023 87139-CWYZ SKIN LESIONS, 2 TO 4 08/10/19 24 Next Appt Details Follow Up: prn, Reason: Provider Name:Riley Rodrigues , 02/29/2024 09:00:00 AM, [address] [place] [address], [phone], Procedure Notes * Category Sub-Category Detail Notes Debride Nail 6-10 Nail debridement Nail debridem ent performed extensively to reduce/remove overall nail length, girth, thickness, subungual debris, and necrotic tissue, by manual and electrical means through the use of a nail nipper and/or dremel, to more viable healthy nail plate or bed tissue 1-5. Silver nitrate used for any petechial bleeding as necessary. Patient chooses, no pharmaceutical tx (52781) Keratoma Treatment Parring or Cutting o f Benign Hyperkeratotic Lesion(s) 39971 (2-4 Lesions) - The Benign hyperkeratotic lesions, as described above were pared, and/or cut utilizing a sterile #15 blade, tissue nippers, and/or dremel Progress Notes * John PARSONOB:1945 (78 yo F)Acc No.[id number]:08/10/2023 Progress Note Patient:Jossie Jang Provider:?Riley Rodrigues DPM :1945???Age:78 Y???Sex:Female D ate:08/10/2023 Address:[address] [place], [place] [phone] Pcp:Nathan Nickerson MD Subjective: * Chief Complaints: * ???At Risk Footcare * HPI: ???At Risk footcare:?Pt States Last PCP Visit:?Date?04/30/2023 * ROS:?General/Constitutional:?Nausea?denies.?Vomiting?denies.?Hunger Thirst?denies.?Loss appetite?denies.?Chills?denies.?Fatigue?denies.?Fever?denies.?Night Sweats?denies.?Unexplained weight loss?denies.?Ophthalmologic:?Blurred vision?denies.?Red eye?denies.?HEENTM:?Dentures?denies.?Dizziness?denies.?Glasses/contacts?admits.?Retinopathy?de nies.?Blurred/double vision?denies.?TMJ?denies.?Discharge/drainage?denies.?Implants?denies.?Hard of hearing denies.?Difficulty chewing/swallowing/speaking?denies.?Nose bleeds?denies.?Sore mouth?denies.?Swollen glands?denies.?Respiratory:?On Oxygen?denies.?Pneumonia/pleurisy?denies.?Bronchitis?denies.?Emphysema?denies.?C oughing?denies.?Cough blood?denies.?Shortness of breath?denies.?Wheezing?denies.?Cardiovascular:?Pacemaker?denies.?MVP?denies.?WPW?denies.?CHF?denies.?Heart attack?denies.?Septal defect?denies.?Rapid beat?denies.?Chest pain ?denies.?Atrial Fib.?denies.?Murmur/Palpitations?denies.?Gastrointestinal:?Hemorrhoids?denies.?Stomach/Abdominal pain?denies.?Dark blood stool?denies.?Irritable bowel ?denies.?Constipation?denies.?Diarrhea?denies.?Vomiting?denies.?Hematology:?Swelling?denies.?Bruising?admits, on anticoagulants.?Bleeding problem?admits, on anticoagulants.?Genitourinary:?Blood urine?denies.?Frequent/Painfu/urination/bladder control?denies.?Kidney stones?denies.?Infection (UTI)?denies.?Nephropathy?denies.?Musculoskeletal:?Hammertoes?admits.?Bunions?denies.?Scoliosis/kyphosis?denies.?Muscle cramps / walking?denies.?Generalized aches and pains?denies.?Weakness??admits, that is mild, bilateral lower extremities.?Integ.:?Weeks?denies.?Scars?denies.?Corns/calluses?admits.?Ingrown nails?admits.?Painful nails?denies.?Rashes?denies.?Neurologic:?Difficulty sleeping?denies.?Bipolar?denies.?Brain disorder?denies.?Balance trouble?denies.?Confusion?denies.?Fainting/blackouts?denies.?Headache?denies.?Tr emors?denies.? * Medical History:? * Surgical History:?appendecto my brain surgery hip surgery hysterectomy back surgery 09/2019 * Hospitalization/Major Diagno stic Procedure:?admitted to [facility] for a fall- DX- fracture back for 4 days then Kimber jacob [facility] for sliver on left leg stitches were done [address] [place] [address]- rehab back sx 4 weeks 09/2019 * Family History:?Mother: dece ased, diagnosed with Diabetic - NIDDM, Other malignant neoplasm of unspecified site.?Father: .? * Social History:?Tobacco Use:?Tobacco Use/Smoking?Are you a:?nonsmoker ?Tobacco use other than smoking?Are you an other tobacco user??No ???Drugs/Alcohol:?Drugs?Have you used drugs other than those for medical reasons in the past 12 months??No ?Alcohol Screen?Did you have a drink containing alcohol in the past year??No ?Points?0 ?Interpretation?Negative ???Miscellaneous:?no Caffeine. ?no Exercise. ?Occupation: Retired. * Medications:?TakingbusPIRone HCl Metformin & Diet Manage Prod 500MG once a dayMulti Vitamin Lisinopril Lovenox oxyBUTYnin Simvastatin 20 MG Tablet Orally Once a dayVitamin D Extra Depth Orthopedic Shoes (1 Pair) with Customized Heat Molded Multidensity Innersoles (3 Pair) as directed Dx: NIDDM/Polyneuropathy (E11.42), Hammertoe Foot Deformity (M20.41,M20.42), Preulcerative Skin Lesion(s) (L85.1Taking busPIRone HCl Taking Metformin & Diet Manage Prod 500MG once a dayTaking Multi Vitamin Taking Lisinopril Taking Lovenox Taking oxyBUTYnin Taking Simvastatin 20 MG Tablet Orally Once a dayTaking Vitamin D Taking Extra Depth Orthopedic Shoes (1 Pair) with Customized Heat Molded Multidensity Innersoles (3 Pair) as directed Dx: NIDDM/Polyneuropathy (E11.42), Hammertoe Foot Deformity (M20.41,M20.42), Preulcerative Skin Lesion(s) (L85.1Not-Taking/PRNclonazePAM Lisinopril Gabapentin 300 MG Once a dayCalcium Citrate Vitamin E 1000 UNIT Capsule Orally Glimepiride Medication List reviewed and reconciled with the patientNot-Taking/PRN clonazePAM Not-Taking/PRN Lisinopril Not-Taking/PRN Gabapentin 300 MG Once a dayNot- Taking/PRN Calcium Citrate Not-Taking/PRN Vitamin E 1000 UNIT Capsule Orally Not-Taking/PRN Glimepiride Medication List reviewed and reconciled with the patient * Allergies:?Dilantin: rashEst er type anesthetics: can't rememberPenicillin: rash yes[Allergies Verified] Objective: * Vitals:?Ht: 5 ft 7 in, Wt:16 0, BMI:25.06, Shoe size:10, BP:120/80 mm Hg, BS:180. * Examination: ???Neurological: ?SENSORY:?Neurological exam demonstrates, reduced light touch sensation, reduced vibration lower extremity, reduced sharp/dull pin prick discrimination , B/L, 5.07 monofilament test performed at plantar aspects of 5 varied sites per foot shows sensation, reduced, B/L, Pt still relates, paresthesia, pins and needles sensation, B/L.?Nails: ?NAILS are:?Elongated, overgrown, dystrophic, lytic, greater than 3mm thick, discolored and friable with crumbly malodorous subungual debris, TA, T1, T4, T5, T6, T8, T9.?Dermatologic: ?SKIN FINDINGS:?Skin exam reveals Keratotic lesion(s) located at, SUB MTH (s), 1, B/L.? Assessment: * Assessment: 1.?Type 2 diabetes mellitus with diabetic polyneuropathy - E11.42 (Primary)?2.?Tinea unguium - B35.1? Plan: * Treatment: * Procedures:?Debride Nail 6-10:?Nail debridement?Nail debridement performed extensively to reduce/remove overall nail length, girth, thickness, subungual debris, and necrotic tissue, by manual and electrical means through the use of a nail nipper and/or dremel, to more viable healthy nail plate or bed tissue 1-5. Silver nitrate used for any petechial bleeding as necessary. Patient chooses, no pharmaceutical tx (10686).?Keratoma Treatment:?Parring or Cutting of Benign Hyperkeratotic Lesion(s)?37037 (2-4 Lesions) - The Benign hyperkeratotic lesions, as described above were pared, and/or cut utilizing a sterile #15 blade, tissue nippers, and/or dremel.? * Procedure Codes:?22339 DEBRI DE NAIL, 6 OR MORE, Modifiers: XS 59809 TRIM SKIN LESIONS, 2 TO 4, Modifiers: XS * Follow Up:?prn * Images: * Sign off status: Completed Addendum: * ? true * Provider:?Riley Rodrigues DPM Date:?2023 Generated for Lashay oshea/Nico/Grantitting on:?02/25/2024 02:47 PM EST History and Physical Notes * HPI (History of Present Illness) Category Sub-Category Detail Notes Category Not es At Risk footcare Pt States Last PCP Visit: Date: 4 Examination Category Sub-Category Detail Notes Category Not es Neurological SENSORY: Neurological exa m demonstrates, reduced light touch sensation, reduced vibration lower extremity, reduced sharp/dull pin prick discrimination , B/L, 5.07 monofilament test performed at plantar aspects of 5 varied sites per foot shows sensation, reduced, B/L, Pt still relates, paresthesia, pins and needles sensation, B/L Dermatologic SKIN FINDINGS: Skin exam reveal s Keratotic lesion(s) located at,SUB MTH (s),1,B/L Nails NAILS are: Elongated, overg rown, dystrophic, lytic, greater than 3mm thick, discolored and friable with crumbly malodorous subungual debris, TA, T1, T4, T5, T6, T8, T9
--- OUTSIDE RECORDS SUMMARY | 2024-02-25 14:47 | XMS_ITS ---
Author Organization [facility] Address [address] [place] [address] Care Team Providers Care Fuel Conversion Technician Name Role Phone Nathan Nickerson MD Primary Care Provider Riley Otoole Unavailable [phone] Allergies Allergen (clinical drug ingredient) Drug/Non Drug Allergy documented on EMR Reaction Allergy Type Onset Date Status Jazmyn type anesthetics (uncoded) can't remember Allergy Active Dilantin rash Drug Allergy Active Penicillin rash Drug Allergy Active REASON FOR VISIT At Risk Footcare, Toe Irritation Medications Medication SIG (Take, Route, Frequency, Duration) Notes Start Date End Date Status clonazePAM Not-Takin g Vitamin D Active Simvastatin 20 MG Orally Once a day Active Gabapentin 300 MG Once a day N ot-Taking Lisinopril Not-Takin g Extra Depth Orthopedic Shoes (1 Pair) with Customized Heat Molded Multidensity Innersoles (3 Pair) as directed Dx: NIDDM/Polyneuropathy (E11.42), Hammertoe Foot Deformity (M20.41,M20.42), Preulcerative Skin Lesion(s) (L85.1 05/11/2023 Active Lovenox Active Lisinopril Active Multi Vitamin Active oxyBUTYnin Active Glimepiride Not-Taki ng Vitamin E 1000 UNIT Orally Not-Taking Metformin & Diet Manage Prod 500MG once a day Active busPIRone HCl Active Calcium Citrate Not- Taking Social History Tobacco Use: Social History Observation [...] Signs Height 5 ft 7 in in 05/11/2023 Weight 160 lbs 05/11/2023 BMI 25.06 kg/m2 05/11/2023 Blood pressure systolic 120 mm Hg 05/11/19 24 Blood pressure diastolic 80 mm Hg 024 Procedures Procedure Date Ordered Date Performed Result Body Sit e 48101-XAPVLTJ NAIL, 6 OR MORE 05/11/2023 N/A 30327-DPAF SKIN LESIONS, 2 TO 4 05/11/2023 N/A Encounters Encounter Location Date Provider Diagnosis [facility] [place] [address] [place] [address] 05/11/2023 Riley Rodrigues Type 2 diabetes mellitus with diabetic polyneuropathy E11.42 ; Tinea unguium B35.1 ; Other hammer toe(s) (acquired), right foot M20.41 and Other hammer toe(s) (acquired), left foot M20.42 Assessments Encounter Date Diagnosis (ICD Code) Assessment Notes Treatment Notes Treatment Clinical Notes Section Notes 05/11/2023 Type 2 diabetes mellitus with diabetic polyneuropathy (ICD-10 - E11.42) 05/11/2023 Tinea unguium (ICD-10 - B35.1) 05/11/2023 Other hammer toe(s) (acquired), right foot (ICD-10 - M20.41) Patient Educated with: DIABETIC FOOT CARE INSTRUCTIONS. pdf (DIABETIC FOOT CARE INSTRUCTIONS. pdf) 05/11/2023 Other hammer toe(s) (acquired), left foot (ICD-10 - M20.42) Plan Of Treatment Medication Medication Name Sig Start Date Stop Date Notes Extra Depth Orthopedic Shoes (1 Pair) with Customized Heat Molded Multidensity Innersoles (3 Pair) as directed Dx: NIDDM/Polyneuropathy (E11.42), Hammertoe Foot Deformity (M20.41,M20.42), Preulcerative Skin Lesion(s) (L85.1 05/11/2023 Treatment Notes Assessment Notes Other hammer toe(s) (acquired), right fo ot Patient Educated with: DIABETIC FOOT CARE INSTRUCTIONS.pdf (DIABETIC FOOT CARE INSTRUCTIONS.pdf) Pending Test Test Name Order Date 22326-QXHMXQZ NAIL, 6 OR MORE 05/11/2023 46122-WZSZ SKIN LESIONS, 2 TO 4 05/11/19 24 Next Appt Details Follow Up: prn, Reason: Provider Name:Riley Rodrigues , 02/29/2024 09:00:00 AM, [address] [place], [address], Procedure Notes * Category Sub-Category Detail Notes [...] as necessary. Patient chooses, no pharmaceutical tx (49615) Keratoma Treatment Parring or Cutting o f Benign Hyperkeratotic Lesion(s) 56015 (2-4 Lesions) - The Benign hyperkeratotic lesions, as described above were pared, and/or cut utilizing a sterile #15 blade, tissue nippers, and/or dremel Progress Notes * John PARSONOB:1945 (77 yo F)Acc No.[id number]:05/11/2023 Progress Note Patient:?Jossie Parson Provider:?Riley Rodrigues DPM :1945???Age:77 Y???Sex:Female D ate:05/11/2023 Address:[address] [place], [place] [id number] Pcp:Nathan Nickerson MD Subjective: * Chief Complaints: * ???At Risk FootcareToe Irrit ation * HPI: ???At Risk footcare:?Pt States Last PCP Visit:?Date?04/30/2023 ???Toe pain:?Location:?B/L feet.?Duration:?several years.?Course:?worse.?Aggrevated by:?shoes, any pressure.?Treatments:?change in shoes.? * ROS:?General/Constitutional:?Nausea?denies.?Vomiting?denies.?Hunger Thirst?denies.?Loss appetite?denies.?Chills?denies.?Fatigue?denies.?Fever?denies.?Night Sweats?denies.?Unexplained weight loss?denies.?Ophthalmologic:?Blurred [...] 09/2019 * Hospitalization/Major Diagno stic Procedure:?admitted to [facility] for a fall- DX- fracture back for 4 days then [facility] 01/09/2016[facility] for sliver on left leg stitches were done [address] [place] [address]- rehab back sx 4 weeks 09/2019 * [...] alcohol in the past year??No ?Points?0 ?Interpretation?Negative * Medications:?TakingbusPIRone HCl Metformin & Diet Manage Prod 500MG once a dayMulti Vitamin Lisinopril Lovenox oxyBUTYnin Simvastatin 20 MG Tablet Orally Once a dayVitamin D Taking busPIRone HCl Taking Metformin & Diet Manage Prod 500MG once a dayTaking Multi Vitamin Taking Lisinopril Taking Lovenox Taking oxyBUTYnin Taking Simvastatin 20 MG Tablet Orally Once a dayTaking Vitamin D Not- Taking/PRNclonazePAM Lisinopril Gabapentin 300 MG Once a dayCalcium Citrate Vitamin E 1000 UNIT Capsule Orally Glimepiride Medication List reviewed and reconciled with the patientNot-Taking/PRN clonazePAM Not-Taking/PRN Lisinopril Not-Taking/PRN Gabapentin 300 MG Once a dayNot-Taking/PRN Calcium Citrate Not-Taking/PRN Vitamin E 1000 UNIT [...] lesion(s) located at, SUB MTH (s), 1, B/L.?Orthopedic: ?MUSCLE STRENGTH:? Generalized decrease in strength, B/L.?FOOT MORPHOLOGY:? Pes Cavus structure, No Charcot collapse/destruction noted at MTJ.?DIGITAL DEFORMITIES:?Digital contracture, PIPJ, 2-5 B/L, incompl-reducible to push-up test, no over, nor underlapping, with evidence of shoe producing skin irritation.?FOOTWEAR:?worn, OT were inspected and noted to be severely worn , in poor condition not giving proper support at the present time, shoe gear properties exacerbate patient's foot/toe deformity .?Vascular: ?DP PULSES:? 1-2/4, B/L.?PT PULSES:? 1-2/4, B/L.?CAPILLARY FILL TIME:? 3 secs. per digit, B/L.?SKIN TEMPERTURE GRADIENT OF THE LOWER EXTERMITIES:?normal, warm to cool, proximal to distal, B/L.?HAIR GROWTH/TEXTURE/ELASTICITY/TURGOR:?normal, B/L.?PIGMENTATION:?normal, B/L.?EDEMA:? /, non-pitting, without aching pain, B/L, Leg(s), Ankle(s).?CLAUDICATION:?denies, B/L.?REST PAIN:?denies, B/L.?Ophthalmology Referral: ?DIABETES EYE EXAM?General Examination: ?GENERAL APPEARANCE:?Reveals a pleasant, alert, well nourished, well- developed, well hydrated individual, who demonstrates proper attention to hygiene/body habitus, and is in no acute distress, Pt serves as own historian for office visit today.?ORIENTED:?person, place, and time.?FOOT EXAM:?Footwear Evaluation? Assessment: * Assessment: 1.?Type 2 diabetes mellitus with diabetic polyneuropathy - E11.42 (Primary)?2.?Tinea unguium - B35.1?3.?Other hammer toe(s) (acquired), right foot - M20.41, Chronic problem, Worse (4),Rx Management (4)?4.?Other hammer toe(s) (acquired), left foot - M20.42, Chronic problem, Worse (4),Rx Management (4)? Plan: * Treatment: 2.?Other hammer toe(s) (acqu ired), right foot? Start Extra Depth Orthopedic Shoes (1 Pair) with Customized Heat Molded Multidensity Innersoles (3 Pair), as directed, Dx: NIDDM/Polyneuropathy (E11.42), Hammertoe Foot Deformity (M20.41,M20.42), Preulcerative Skin Lesion(s) (L85.1, 1, Refills 0.?? Notes: Patient Educated with: DIABETIC FOOT CARE INSTRUCTIONS.pdf (DIABETIC FOOT CARE INSTRUCTIONS.pdf)?? * Procedures:?Debride Nail 6-10:?Nail debridement?Nail debridement performed extensively to reduce/remove overall nail length, girth, thickness, subungual debris, and necrotic tissue, by manual and electrical means through the use of a nail nipper and/or dremel, to more viable healthy nail plate or bed tissue 1-5. Silver nitrate used for any petechial bleeding as necessary. Patient chooses, no pharmaceutical tx (41461).?Keratoma Treatment:?Parring or Cutting of Benign Hyperkeratotic Lesion(s)?23061 (2-4 Lesions) - The Benign hyperkeratotic lesions, as described above were pared, and/or cut utilizing a sterile #15 blade, tissue nippers, and/or dremel.? * Procedure Codes:?11554 DEBRI DE NAIL, 6 OR MORE, Modifiers: XS 64722 TRIM SKIN LESIONS, 2 TO 4, Modifiers: XS * Preventive Medicine:? ??Counseling:?Discussion:?-14: Office or other outpatient visit for the evaluation and management of an established patient, which required a medically appropriate history and/or examination and MODERATE level of DECISION MAKING for: 1 OR MORE CHRONIC PROBLEM(S) THATS WORSENING, 2 STABLE CHRONIC PROBLEMS, A NEWLY DIAGNOSED PROBLEM WITH UNCERTAIN PROGNOSIS, AN ACUTE COMPLICATED INJURY WITH MULTIPLE TREATMENT OPTIONS, OR AN ACUTE PROBLEM WITH ACCOMPANYING SYSTEMIC SYMPTOMS, THAT POSE(S) A MODERATE RISK OF MORBIDITY. THIS CONDITION MAY ALSO INCLUDE RX DRUG MANAGEMENT, OR A DECISON FOR MINOR SURGERY. The visit on the day of the encounter encompassed interpreting the data and educating the patient as to the nature of their condition, treatment options available according to their individual PMH, meds, allergies, and overall health/living conditions, as well as any potential risks or complications that may occur from a failure to adhere to, and participate in, the recommended course of therapy. The discussion included a complete verbal, and/or written explanation of the examination results, any x-rays taken, the proposed diagnosis, and outline of the treatment plan. A schedule for future care needs was also explained. The patient verbalized an understanding of the instructions at this time and agreed to be an active participant in their treatment. If the patient should think of any questions or concerns after the visit, I have encouraged the patient to call the office.?Digital Surgery:?Digital surgery was discussed with the patient, We elected to try conservative treatment at the present time, due to the patients medical history and increased asssociated post-operative risks.?Digital Treatment:?HT- I explained to the patient the possible etiologies of Hammertoes, including genetics/foot type/shoegear/activity level/exercise routine and the risks/benefits of all the different treatment options for their pain including: No treatment at all, Rest, Ice, New/supportive/wider/deeper Shoegear, Digital Padding/Strapping/Taping/Bracing/Gel protective sleeves, Foot/Ankle AFO Bracing, Stretching exercises, Deep Tissue Massage, Arch support/shoe inserts with splay metatarsal padding, and Custom orthoses. I insisted that any digital devices be removed daily and not worn overnight for safety. The patient is to carefully examine the toes daily for any skin irritation while using any splinting or padding device. The advantages and disadvantages of each option were discussed and the patients questions re: shoegear, padding, custom vs prefabricated inserts, activity level, and consistency in home treatment regimens for optimal success were answered to their verbally confirmed satisfaction.?Shoe Gear Counseling:?SHOE Rx - The patient was counseled in great detail on their muscoloskeletal foot and toe deformities which coincided with the dermatological presentations visualized on exam. We discussed how their deformities put the integrity of their feet at risk for potential pedal complications which makes the accomidative diabetic shoes and cutomizable inserts medically necessary. We discussed the different shoe and insert treatment types and options, as well as the important advantages for adhering to regularly wearing these accomidative devices daily. The patient was made aware of the fact that a failure to abide by these recommedations may be deleterious to their foot health as they are able to prevent many pedal complications such as skin irritation, skin ulceration, infection, and even loss of toe/foot/leg/or life. Time was also spent with the patient dispensing and discussing proper diabetic footcare techniques including daily skin moisturization, daily foot inspection for any interruption in skin integrity including open lesions, or sign of infection such as redness/malodor/drainage/swelling. Also discussed and recommended were procedures regarding daily shoe inspection for the presence of internal foreign bodies as well as any visualized irregular shoe or insert wear. Patient questions re: shoes, inserts, and self foot inspections were answered to their satisfaction as the patient verbally confirmed a full understanding of the above information. A Rx for Extra Depth Orthopedic Shoes with 3 pair of custom heat-molded inserts was dispensed.? ??Screening/Special Tests:?Fall Risk?Assessment:?Performed ?Plan of Care:?Documented ?Screening:?No falls in the past year ?FALLS: Screening for Future Fall Risk?Have you had any falls with injury in the past year??No * Follow Up:?prn * Images: * Sign off status: Completed Addendum: * ? true * Provider:?Riley Rodrigues DPM Date:?2023 Generated for Lashay oshea/Nico/eTransmjonatan on:?02/25/2024 02:47 PM EST History and Physical Notes * HPI (History of Present Illness) Category Sub-Category Detail Notes Category Not es Toe pain Location: B/L feet Duration: several years Course: worse Aggravated by: shoes, any pressure Treatments: change in shoes At Risk footcare Pt States Last PCP [...] s Keratotic lesion(s) located at,SUB MTH (s),1,B/L Orthopedic FOOT MORPHOLOGY: Pes Cavus struc ture, No Charcot collapse/destruction noted at MTJ FOOTWEAR: worn, OT were inspec rosalie and noted to be severely worn , in poor condition not giving proper support at the present time, shoe gear properties exacerbate patient's foot/toe deformity DIGITAL DEFORMITIES: Digital contracture , PIPJ, 2-5 B/L, incompl-reducible to push-up test, no over, nor underlapping, with evidence of shoe producing skin irritation MUSCLE STRENGTH: Generalized decrease in strength, B/L General Examination GENERAL APPEARANCE: Reveals a pleasant, alert, well nourished, well-developed, well hydrated individual, who demonstrates proper attention to hygiene/body habitus, and is in no acute distress, Pt serves as own historian for office visit today FOOT EXAM: Lower Extremity Neurological Exa m performed:: Yes ORIENTED: person, place, and t iban Footwear Evaluation Footwear Evaluation performe d:: Yes Ophthalmology Referral DIABETES EYE EXAM Diabetic Retinopa thy Screening:: Yes Findings of Diabetic Eye Exam:: no retin opathy Vascular DP PULSES (B): 1-2/4, B/L PT PULSES (B): 1-2/4, B/L CAPILLARY FILL TIME: 3 secs. per digit, B/L TEMPERTURE GRADIENT (C): normal, warm to cool, proximal to distal, B/L TROPHIC CONDITION-TEXTURE/ELASTICITY/TURGOR/HAIR GROWTH (B): normal, B/L EDEMA (C): 1/4, non-pitting, wi thout aching pain, B/L, Leg(s), Ankle(s) CLAUDICATION (C): denies, B/L REST PAIN: denies, B/L PIGMENTATION: normal, B/L Nails NAILS are: Elongated, overg rown, dystrophic, lytic, greater than 3mm thick, discolored and friable with crumbly malodorous subungual debris, TA, T1, T4, T5, T6, T8, T9
--- OUTSIDE RECORDS SUMMARY | 2024-02-25 14:48 | XMS_ITS | Patient Health Record ---
[facility] Address [address] [place] [address] Care Team Providers Care Quality Assurance Qa Lab Analyst Name Role Phone Nathan Nickerson MD Primary Care Provider Riley Otoole Unavailable [phone] Allergies Allergen (clinical drug ingredient) Drug/Non Drug Allergy documented on EMR Reaction Allergy Type Onset Date Status Jazmyn type anesthetics (uncoded) can't remember Allergy Active Dilantin rash Drug Allergy Active Penicillin rash Drug Allergy Active Reason For Referral No Information Medications Medication SIG (Take, Route, Frequency, Duration) Notes Start Date End Date Status Lovenox Active Lisinopril Active Glimepiride Not-Taki ng Multi Vitamin Active Vitamin E 1000 UNIT Orally Not-Taking Metformin & Diet Manage Prod 500MG once a day Active Calcium Citrate Not- Taking Gabapentin 300 MG Once a day N ot-Taking busPIRone HCl Active Lisinopril Not-Takin g clonazePAM Not-Takin g Extra Depth Orthopedic Shoes (1 Pair) with Customized Heat Molded Multidensity Innersoles (3 Pair) as directed Dx: NIDDM/Polyneuropathy (E11.42), Hammertoe Foot Deformity (M20.41,M20.42), Preulcerative Skin Lesion(s) (L85.1 05/11/2023 Active Vitamin D Active Simvastatin 20 MG Orally Once a day Active oxyBUTYnin Active Immunizations Vaccine Route Administration Date Status Comme nts COVID-19 Moderna Vaccine Unknown 2021 Administere d 1st 04/02/2020 2nd 04/30/2020 3rd 12/20/2020 Flu vaccine no Preserv 3 and > Unknown 12/17/2014 Administered Influenza Unknown 11/18/2015 Administered Influenza Unknown 12/22/2016 Administered Influenza Unknown 11/15/2017 Administered Influenza Unknown 11/11/2021 Administered Pneumococcal Unknown 11/20/2020 Administered Social History Tobacco Use: Social History Observation [...] Are you an other tobacco user? No Problems Problem Type SNOMED Code ICD Code Onset Dates Problem Status W/U Status Risk Notes Problem Acquired hammer toe of right foot (8614789441447105 ) Other hammer toe(s) (acquired), right foot (M20.41) Active confirmed Problem Acquired hammer toe of left foot (0837565262861847 ) Other hammer toe(s) (acquired), left foot (M20.42) Active confirmed Problem Polyneuropathy due to type 2 diabetes mellitus (895810212) Type 2 diabetes mellitus with diabetic polyneuropathy (E11.42) Active confirmed Vital Signs Blood pressure diastolic 80 mm Hg 11/12/2023 Height 5 ft 7 in in 11/12/2023 Blood pressure systolic 120 mm Hg 11/12/2023 Weight 160 lbs 11/12/2023 BMI 25.06 kg/m2 11/12/2023 Procedures Procedure Date Ordered Date Performed Result Body Sit e 84767-WMUNOKE NAIL, 6 OR MORE 05/11/2023 N/A 10619-LCMY SKIN LESIONS, 2 TO 4 05/11/2023 N/A 31441-DYEEVOL NAIL, 6 OR MORE 08/10/2023 N/A 54256-NVXR SKIN LESIONS, 2 TO 4 08/10/2023 N/A 78751-SMLTEKP NAIL, 6 OR MORE 11/12/2023 N/A 60289-CUCU SKIN LESIONS, 2 TO 4 11/12/2023 N/A Encounters Encounter Location Date Provider Diagnosis [facility] [address] [place] [address] 05/11/2023 Riley Rodrigues Type 2 diabetes mellitus with diabetic polyneuropathy E11.42 ; Tinea unguium B35.1 ; Other hammer toe(s) (acquired), right foot M20.41 and Other hammer toe(s) (acquired), left foot M20.[address] [address] 08/10/2023 Riley Rodrigues Type 2 diabetes mellitus with diabetic polyneuropathy E11.42 and Tinea unguium B35.[address] [address] 11/12/2023 Rileyenrique Rodrigues Type 2 diabetes mellitus with diabetic polyneuropathy E11.42 and Tinea unguium B35.1 Assessments Encounter Date Diagnosis (ICD Code) Assessment Notes Treatment Notes Treatment Clinical Notes Section Notes 05/11/2023 Type 2 diabetes mellitus with diabetic polyneuropathy (ICD-10 - E11.42) 05/11/2023 Tinea unguium (ICD-10 - B35.1) 08/10/2023 Type 2 diabetes mellitus with diabetic polyneuropathy (ICD-10 - E11.42) 08/10/2023 Tinea unguium (ICD-10 - B35.1) 11/12/2023 Type 2 diabetes mellitus with diabetic polyneuropathy (ICD-10 - E11.42) 11/12/2023 Tinea unguium (ICD-10 - B35.1) 05/11/2023 Other hammer toe(s) (acquired), right foot (ICD-10 - M20.41) Patient Educated with: DIABETIC FOOT CARE INSTRUCTIONS. pdf (DIABETIC FOOT CARE INSTRUCTIONS. pdf) 05/11/2023 Other hammer toe(s) (acquired), left foot (ICD-10 - M20.42) 08/10/2023 Other 11/12/2023 Other Plan Of Treatment Pending Test Test Name Order Date Hemoglobin A1c 03/12/2015 44365-NBREVXI NAIL, 6 OR MORE 03/12/2015 76400-OGBEZMV NAIL, 6 OR MORE 06/21/2015 15420-XAMASAH NAIL, 6 OR MORE 09/24/2015 35150-YAHYROC NAIL, 6 OR MORE 12/27/2015 30757-SLYYJVZ NAIL, 6 OR MORE 04/03/2016 90579-HIYGBQU NAIL, 6 OR MORE 07/07/2016 32198-WEQNYNF NAIL, 6 OR MORE 10/16/2016 21774-LBDTJCA NAIL, 6 OR MORE 01/22/2017 61308-CVWHUKW NAIL, 6 OR MORE 04/30/2017 90403-XGDIJOP NAIL, 6 OR MORE 07/30/2017 30240-OLVDRUN NAIL, 6 OR MORE 11/02/2017 32617-XIXLJED NAIL, 6 OR MORE 02/25/2018 21617-VDBVMHW NAIL, 6 OR MORE 05/31/2018 15149-VGJXADC NAIL, 6 OR MORE 09/06/2018 24677-MOLSKUA NAIL, 6 OR MORE 11/25/2018 01833-EOPPIKY NAIL, 6 OR MORE 03/07/2019 91938-XFQMDXQ NAIL, 6 OR MORE 11/11/2010 57771-BMCPGUO NAIL, 6 OR MORE 02/03/2011 99651-VMVGUXV NAIL, 6 OR MORE 05/12/2011 90836-EGGSUUN NAIL, 6 OR MORE 08/04/2011 16167-PYTSKAJ NAIL, 6 OR MORE 11/06/2011 91771-OLFIEKS NAIL, 6 OR MORE 01/29/2012 98879-FOHMYCG NAIL, 6 OR MORE 05/06/2012 93773-QZESWBT NAIL, 6 OR MORE 07/29/2012 32002-BTXSUEV NAIL, 6 OR MORE 10/28/2012 27189-BRHJVRM NAIL, 6 OR MORE 01/31/2013 04015-WDWJOIH NAIL, 6 OR MORE 05/09/2013 01656-DIPIBEB NAIL, 6 OR MORE 08/15/2013 81746-APTDLLG NAIL, 6 OR MORE 11/21/2013 08432-OZIEBZV NAIL, 6 OR MORE 02/27/2014 47636-AJLGTBT NAIL, 6 OR MORE 05/29/2014 66734-TGVKRDQ NAIL, 6 OR MORE 09/04/2014 87607-BAOGVFZ NAIL, 6 OR MORE 12/04/2014 56870-UXMAMTP NAIL, 6 OR MORE 11/21/2019 54567-CMNWXZC NAIL, 6 OR MORE 02/27/2020 20517-MATQIRP NAIL, 6 OR MORE 05/28/2020 87616-OAYWCIM NAIL, 6 OR MORE 09/06/2020 89942-APYBTJU NAIL, 6 OR MORE 12/10/2020 94785-BLWUXST NAIL, 6 OR MORE 04/29/2021 00170-GLFLJVW NAIL, 6 OR MORE 09/09/2021 01439-FCZEVPP NAIL, 6 OR MORE 12/16/2021 87189-JBTWSKD NAIL, 6 OR MORE 04/10/2022 17863-JTGCCZZ NAIL, 6 OR MORE 07/17/2022 91685-ZMSJWZC NAIL, 6 OR MORE 10/23/2022 04800-OQURKPX NAIL, 6 OR MORE 02/02/2023 51988-NHJZRTB NAIL, 6 OR MORE 05/11/2023 66526-KVDOTWY NAIL, 6 OR MORE 08/10/2023 52457-IHVFUPK NAIL, 6 OR MORE 11/12/2023 30443-Zyqxplou Plate 02/27/2020 19259-Tlhtczhi Plate 02/02/2023 48409-Pdwdqkfn Plate 03/12/2015 68267 I&D ABSCESS- SIMPLE,SINGLE 012 01331-YAVE SKIN LESIONS, OVER 4 03/12/19 16 36276-KHHK SKIN LESIONS, OVER 4 09/24/19 16 65746-YLCI SKIN LESIONS, OVER 4 06/21/19 16 19430-KZOF SKIN LESIONS, OVER 4 01/23/20 17 87338-QCVT SKIN LESIONS, OVER 4 10/17/19 17 53487-IEIU SKIN LESIONS, OVER 4 04/03/19 17 73383-DTIE SKIN LESIONS, OVER 4 07/08/19 17 67735-RYZX SKIN LESIONS, OVER 4 12/27/19 16 26799-SBMO SKIN LESIONS, OVER 4 02/25/19 19 97370-MLXS SKIN LESIONS, OVER 4 11/03/19 18 04262-FVDV SKIN LESIONS, OVER 4 07/31/19 18 04347-BEYO SKIN LESIONS, OVER 4 05/01/19 18 93022-BLDT SKIN LESIONS, OVER 4 12/05/19 15 29270-LGRI SKIN LESIONS, OVER 4 09/05/19 15 21538-QWEE SKIN LESIONS, OVER 4 05/30/19 15 64390-PWAL SKIN LESIONS, OVER 4 02/27/19 15 29334-BLXS SKIN LESIONS, OVER 4 11/22/19 14 47647-DXIA SKIN LESIONS, OVER 4 08/16/19 14 86584-RJUR SKIN LESIONS, OVER 4 05/10/19 14 31258-URNC SKIN LESIONS, OVER 4 02/01/20 13 16986-PKXV SKIN LESIONS, 2 TO 4 10/29/19 13 59297-BAZN SKIN LESIONS, 2 TO 4 07/30/19 13 00489-KVQY SKIN LESIONS, 2 TO 4 05/07/19 13 02294-ZPGK SKIN LESIONS, 2 TO 4 01/29/20 12 90167-WJRF SKIN LESIONS, 2 TO 4 11/06/19 12 59942-IERK SKIN LESIONS, 2 TO 4 08/04/19 12 68571-SGHQ SKIN LESIONS, 2 TO 4 05/12/19 12 92888-ZZRM SKIN LESIONS, 2 TO 4 03/07/19 99416-BGQT SKIN LESIONS, 2 TO 4 11/26/19 82938-PAEP SKIN LESIONS, 2 TO 4 09/07/19 42457-WLJR SKIN LESIONS, 2 TO 4 06/01/19 94526-CPZC SKIN LESIONS, 2 TO 4 05/11/19 24 31075-IASE SKIN LESIONS, 2 TO 4 11/12/19 24 53665-TADR SKIN LESIONS, 2 TO 4 08/10/19 24 23687-QBJJ SKIN LESIONS, 2 TO 4 02/03/20 23 02413-HRTS SKIN LESIONS, 2 TO 4 10/24/19 23 55910-CXPW SKIN LESIONS, 2 TO 4 07/18/19 23 92439-VHKJ SKIN LESIONS, 2 TO 4 04/10/19 23 74537-QNQG SKIN LESIONS, 2 TO 4 12/17/19 14071-XJWA SKIN LESIONS, 2 TO 4 09/10/19 17750-HCHC SKIN LESIONS, 2 TO 4 04/30/19 96687-XWZR SKIN LESIONS, 2 TO 4 12/11/19 65018-HEYM SKIN LESIONS, 2 TO 4 09/07/19 31651-NQKU SKIN LESIONS, 2 TO 4 05/29/19 50433-QKSN SKIN LESIONS, 2 TO 4 02/26/19 55385-HRZJ SKIN LESIONS, 2 TO 4 11/21/19 Next Appt Details Provider Name:Riley Rodrigues , 02/29/2024 09:00:00 AM, [address] [facility], [place], [address], Insurance Providers Payer Name Payer Address Payer Phone Subscriber Number Group Number Insured Name Patient Relationship to Insured Coverage Start Date Coverage End Date Medicare National [employer]t [employer] [address] [place] [address] [id number] Jossie Parson Self - patient is the insured 1 [employer]) [address] [place] [address] [id number] Jossie Parson Self - patient is the insured Medical (General) History Medical History History ICD Code Cholesterol psoriasis osteoporosis cancer broken bones hypertension Diabetic type ll Surgical History Surgery Date(Month/Year) appendectomy brain surgery hip surgery hysterectomy back surgery 09/2019 Hospitalization History Reason Date(Month/Year) admitted to [facility] for a f all- DX- fracture back for 4 days then Kimber jacob 01/09/2016 [facility] for sliver on left leg stitches w ere done 2017 [facility]- rehab back sx 4 weeks
--- OUTSIDE RECORDS SUMMARY | 2024-02-25 14:48 | XMS_ITS | Patient Health Record ---
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 Supervising Technical Operator Name Role Phone Nathan Nickerson MD Primary Care Provider Evaristo Olivas [phone] ALLERGIES Allergen (clinical drug ingredient) Drug/Non Drug Allergy documented on EMR Reaction Allergy Type Onset Date Status penicillin G Penicillin G Potassium Unknown Drug Allergy Active Dilantin Unknown Drug Allergy Active REASON FOR REFERRAL No Information MEDICATIONS Medication SIG (Take, Route, Frequency, Duration) Notes Start Date End Date Status Vitamin D3 2000 UNIT 1 capsule Orally On ce a day/with vitamin A Active busPIRone HCl 5 MG Oral for 30 Active Januvia 25 MG Oral for 30 Acti ve Multivitamin - 1 tablet Orally Once a day for 30 day(s) Active Lisinopril 5 MG 1 tablet Orally Once a day Active metFORMIN HCl ER 500 MG 1 tablet with ev ening meal Orally Once a day Active Simvastatin 20 MG 1 tablet in the even ing Orally Once a day Active oxyBUTYnin Chloride 5 MG Oral for 90 Active Carvedilol 12.5 MG 1 tablet with food O rally Twice a day Active Evenity 105 MG/1.17ML Subcutaneous for 28 Active Vitamin C 500 MG 1 tablet Orally Once a day for 30 day(s) Active Cranberry 500 MG as directed Orally Active IMMUNIZATIONS Vaccine Route Administration Date Status Comme nts Influenza Unknown 10/16/2017 Administered Influenza Unknown 10/16/2020 Administered SOCIAL HISTORY Tobacco Use: Social History Observation Description Date Details (start date - stop date) Former Smoker NA - NA Sex Assigned At : Social History Observation Description Sex Assigned At Unknown Tobacco Use/Smoking Question Answer Notes Patient is a former smoker How long has it been since you last smoked? > 10 years Alcohol Screen Question Answer Notes Did you have a drink containing alcohol in the p ast year? No Points 0 Interpretation Negative PROBLEMS Problem Type ICD Code Onset Dates Problem Status W/U Status Risk SNOMED Code Notes Problem Encounter for screening for malignant neoplasm of colon (Z12.11) Active confirmed 158102570 Problem Family history of colon cancer (Z80.0) Active confirmed 539883070 Problem Preprocedural examination (Z01.818) Active confirmed 036765498436061 Problem Long-term use of high-risk medication (Z79.899) Active confirmed 664773370 Problem Heme + stool (R19.5) Active confirmed Abnormal feces (464258681) Problem Diverticulosis of colon (K57.30) Active confirmed Diverticulosi s of colon (296222201) PLAN OF TREATMENT Pending Test Test Name Order Date Pathology 11/03/2021 Future Test Test Name Order Date COLONOSCOPY 03/17/2018 COLONOSCOPY 10/09/2021 Insurance Providers Payer Name Payer Address Payer Phone Subscriber Number Group Number Insured Name Patient Relationship to Insured Coverage Start Date Coverage End Date MEDICARE OF [place] [address] [place] [address] [id number] BIPIN SLATER Self - patient is the insured [facility] [address] [place] [address] [id number] BIPIN SLATER Self - patient is the insured MEDICAL (GENERAL) HISTORY Medical History History ICD Code NIDDM Denies VT,CVA,Lung disease,renal disease Neg. 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
[2024-02-25 16:04] LABS: Anion Gap 11 (12-20); Blood Urea Nitrogen 13 mg/dL (9-16); Carbon Dioxide 32 mmol/L (22-29); Chloride 102 mmol/L (96-108); Potassium 4.4 mmol/L (3.3-5.1); Sodium 141 mmol/L (135-145)
[2024-02-25 16:05] LABS: Estimated Glomerular Filt Rate > 60; Glucose Fasting 198 mg/dL (60-99)
== END 2024-02-25 14:44 | disposition home or self-care (01) ==
LOC: HO.LAB 14:43
PROVIDERS: PCP Internal Medicine; Visit Provider Internal Medicine Endocrinology, Diabetes & Metabolism
DX: M81.0 Age-related osteoporosis without current pathological fracture (principal)
CPT/HCPCS: 36415; 80048

== ENCOUNTER 2024-03-06 10:39 | Outpatient (REF) | payer MEDICARE, OTHER, SELFPAY ==
[2024-03-06 11:28] LABS: Albumin Level 4.1 g/dL (3.5-5.0); Anion Gap 15 (12-20); Blood Urea Nitrogen 16 mg/dL (9-16); Carbon Dioxide 25 mmol/L (22-29); Chloride 99 mmol/L (96-108); Estimated Glomerular Filt Rate > 60; Glucose Random 200 mg/dL (60-115); Magnesium 1.8 mg/dL (1.6-2.6); Parathyroid Hormone Intact 67.2 pg/mL (8.7-77.1); Phosphorus 2.8 mg/dL (2.7-4.5); Potassium 4.5 mmol/L (3.3-5.1); Sodium 134 mmol/L (135-145)
[2024-03-06 11:43] LABS: Cortisol Random 10.7 ug/dL; Free T4 (Free Thyroxine) 1.19 ng/dL (0.71-1.85); Thyroid Stimulating Hormone 0.85 uIU/mL (0.32-4.0); Vitamin D 25-OH Total 59.9 ng/mL (>30)
[2024-03-08 22:57] LABS: Alkaline Phosphatase Bone 17.8 mcg/L (see note)
[2024-03-11 07:08] LABS: VITAMIN D (1,25 OH) D3 21 pg/mL; Vit D (1,25-Dihydroxy) Total 21 pg/mL (18-72); Vitamin D (1,25 OH) D2 <8 pg/mL
[2024-03-14 01:14] LABS: Parathyroid Hormone Related Pr 12 pg/mL (11-20)
== END 2024-03-06 10:40 | disposition home or self-care (01) ==
LOC: HO.LAB 10:39
PROVIDERS: PCP Internal Medicine; Visit Provider Internal Medicine Endocrinology, Diabetes & Metabolism
DX: M81.0 Age-related osteoporosis without current pathological fracture (principal); E83.52 Hypercalcemia
CPT/HCPCS: 36415; 80048; 82040; 82306; 82533; 82652; 83519; 83735; 83970; 84075; 84100; 84439; 84443

== ENCOUNTER 2024-03-07 10:47 | Outpatient (AMB) | payer MEDICARE, OTHER, SELFPAY ==
--- NOTE | 2024-03-07 10:49 | MHC.OFFVIS ---
Vital Signs 03/07/24 10:56 BMI Reason not done Patient refused/unable BP 114/62 Blood Pressure Location Lt brachial Position Sitting Pulse 84 Pulse Source Pulse Oximeter Intake Visit Reasons: Osteoporosis/prolia injection Intake Note: Patient present today for Osteoporosis and Evenity follow up visit. Accompanied by: Spouse Allergies Penicillins [PENICILLINS] Allergy (Unknown, Verified 03/07/24 10:54) Swelling phenytoin [From DILANTIN] Allergy (Unknown, Verified 03/07/24 10:54) Hives HPI Comments Details: 78 yo female today for fup visit, for osteoporosis management She is feeling well. She is wheelchair-bound and she had a is able to walk 30 steps with a walker and her help. She has had for vertebral fractures so far the last 1 was in 2019. Her last Prolia shot was on 02/06/2020 , 08/07/2019. 12/21/2018. Patient completed 2 years of Forteo 20 mcg daily since May 2016. She is still in wheel chair, she is more mobile now, she walk short distances with her walker, she is doing 20 min of stationary bike daily. Positive prior fractures L1 L2, L4 L5 fracture. Bisphosphonates use: 5 years Calcium intake: on multivitamin only. Vitamin D: 4000 . Herbal medications. none To have 2 extractions this week she is currently on Evenity 210 mg Q monthly Date of Service: 05/23/20 BONE DENSITOMETRY FINDINGS: AP SPINE L2-L4 (excluding L1): The data of L1-L4 has been changed to exclude the L1 vertebral body, because degenerative changes at this level may cause overestimation of lumbar spine density. Current: BMD 0.973 g/cm2, Z-score -0.5, T-score -1.9, osteopenia, 8.2% decrease from previous, 23.0% increase from baseline (<5% change is not significant). Prior: BMD 1.060 g/cm2. Baseline: BMD 0.791 g/cm2. LEFT FEMUR, NECK: Current: BMD 0.537 g/cm2, Z-score -1.9, T-score -3.6, osteoporosis. Prior: BMD 0.555 g/cm2. Baseline: BMD 0.719 g/cm2. LEFT FEMUR, TOTAL: Current: BMD 0.542 g/cm2, Z-score -2.3, T-score -3.7, osteoporosis, 9.5% decrease from previous, 27.2% decrease from baseline (<5% change is not significant). Prior: BMD 0.599 g/cm2. Baseline: BMD 0.745 g/cm2. Laboratory Tests 04/27/18 01/04/19 04/17/19 08:00 08:00 08:50 Creatinine Est GFR (Non-Af Amer) Calcium Alkaline Phosphatase Albumin N-Telopeptide X-linked 12 25-OH Vitamin D Total 45.4 Vit D 1,25-Dihyd Total 1,25 Dihydroxy Vit D2 1,25 Dihydroxy Vit D3 TSH 3rd Generation 0.93 PTH Intact Ur 24 Hour Volume Ur Creatinine mg/dL Ur Creatinine 24 Hour Ur Calcium 24 Hr Calcium/Creat 24 Hr Bone Specific Alk Phos 04/17/19 04/21/19 04/21/19 08:50 09:00 09:00 Creatinine Est GFR (Non-Af Amer) Calcium Alkaline Phosphatase Albumin N-Telopeptide X-linked 25-OH Vitamin D Total Vit D 1,25-Dihyd Total 56 1,25 Dihydroxy Vit D2 <8 1,25 Dihydroxy Vit D3 56 TSH 3rd Generation PTH Intact 44 Ur 24 Hour Volume 1675 Ur Creatinine mg/dL 47.58 Ur Creatinine 24 Hour 0.80 Ur Calcium 24 Hr 191 Calcium/Creat 24 Hr 239 Bone Specific Alk Phos 16.2 08/21/19 11:14 Creatinine 0.70 Est GFR (Non-Af Amer) > 60 Calcium 9.1 D Alkaline Phosphatase 137 H D Albumin 3.8 N-Telopeptide X-linked 25-OH Vitamin D Total Vit D 1,25-Dihyd Total 1,25 Dihydroxy Vit D2 1,25 Dihydroxy Vit D3 TSH 3rd Generation PTH Intact Ur 24 Hour Volume Ur Creatinine mg/dL Ur Creatinine 24 Hour Ur Calcium 24 Hr Calcium/Creat 24 Hr Bone Specific Alk Phos Recently transition from Evenity to Prolia. 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 Mother No problems noted. Social History Patient Tobacco Use Status: Former Tobacco user Tobacco use type: Cigarette Cigarettes Per Day: 20 Years Smoked: 12 Assessment & Plan Assessment & Plan (1) Osteoporosis: Code(s): M81.0 - Age-related osteoporosis without current pathological fracture Category: Medical Qualifiers: Osteoporosis type: age-related Presence of current pathological fracture: without current pathological fracture Qualified Code(s): M81.0 - Age-related osteoporosis without current pathological fracture Plan: Is a 78-year-old white female with a history of multiple vertebral fractures who has tried Forteo, bisphosphonate and Prolia with worsening bone density. She has had complete secondary workup in the past. She is currently on Prolia after transitioning from Evenity but recently, her calcium has increased and PTH is high normal suggesting primary hyperparathyroidism Plan is to continue the Prolia injections as this might lower calcium I would not be contraindicated.. However, the new co-recurrence of primary hyperparathyroidism necessitates a discussion about surgical exploration considering the patient's severe osteoporosis. I discussed surgical exploration with the patient and her and they want to think about this and get back to me. I will recheck calcium and albumin 10 days after the Prolia injection. At this point, I do not think cinacalcet is necessary. Orders: Orders Calcium 10 Days E83.52 - Hypercalcemia, M81.0 - Age-related osteoporosis without current pathological fracture Albumin Level 10 Days E83.52 - Hypercalcemia, M81.0 - Age-related osteoporosis without current pathological fracture Coding Level of Care Code Est Pt Level 3 (10066) Diagnoses Age-related osteoporosis without current pathological fracture M81.0 Osteoporosis type: age-related Presence of current pathological fracture: without current pathological fracture
[2024-03-07 10:56] VITALS: BP 114/62; PULSE 84
--- OUTSIDE RECORDS SUMMARY | 2024-03-07 12:19 | XMS_ITS ---
Author Organization [facility] Address [address] [place] [address] Care Team Providers Care Parts Department Supervisor Name Role Phone Nathan Nickerson MD Primary Care Provider Riley Otoole Unavailable [phone] Allergies Allergen (clinical drug ingredient) Drug/Non Drug Allergy documented on EMR Reaction Allergy Type Onset Date Status Jazmyn type anesthetics (uncoded) can't remember Allergy Active phenytoin Dilantin rash Drug Allergy Active Penicillin rash Drug Allergy Active REASON FOR VISIT At Risk Footcare, Toe Irritation Medications Medication SIG (Take, Route, Frequency, Duration) Notes Start Date End Date Status Gabapentin 300 MG Once a day N ot-Taking Lisinopril Not-Takin g Calcium Citrate Not- Taking Glimepiride Not-Taki ng Vitamin E 1000 UNIT Orally Not-Taking Vitamin D Active Simvastatin 20 MG Orally Once a day Active clonazePAM Not-Takin g Extra Depth Orthopedic Shoes (1 Pair) with Customized Heat Molded Multidensity Innersoles (3 Pair) as directed Dx: NIDDM/Polyneuropathy (E11.42), Hammertoe Foot Deformity (M20.41,M20.42), Preulcerative Skin Lesion(s) (L85.1 05/11/2023 Active oxyBUTYnin Not-Takin g busPIRone HCl Active Multi Vitamin Active Metformin & Diet Manage Prod 500MG once a day Active Lisinopril Active Lovenox Not-Taking Social History Tobacco Use: Social History Observation Description Date Details (start date - stop date) Never Smoker NA - NA Tobacco use other than smoking: Question Answer Notes Are you an other tobacco user? No Tobacco Control (Standard) Question Answer Notes Tobacco use: Nonsmoker Additional Findings: Tobacco non-user Current no nsmoker AUDIT-C (Standard) Question Answer Notes Did you have a drink containing alcohol in the p ast year? No Points 0 Interpretation Negative Vital Signs Height 5 ft 7 in in 02/29/2024 Weight 160 lbs 02/29/2024 BMI 25.06 kg/m2 02/29/2024 Blood pressure systolic 120 mm Hg 02/28/19 25 Blood pressure diastolic 70 mm Hg 025 Procedures Procedure Date Ordered Date Performed Result Body Sit e 22654-GHXTKUM NAIL, 6 OR MORE 02/29/2024 N/A 64284-QASE SKIN LESIONS, 2 TO 4 02/29/2024 N/A Encounters Encounter Location Date Provider Diagnosis [facility] [address] [address] 02/29/2024 Riley Rodrigues Type 2 diabetes mellitus with diabetic polyneuropathy E11.42 ; Tinea unguium B35.1 ; Other hammer toe(s) (acquired), right foot M20.41 and Other hammer toe(s) (acquired), left foot M20.42 Assessments Encounter Date Diagnosis (ICD Code) Assessment Notes Treatment Notes Treatment Clinical Notes Section Notes 02/29/2024 Type 2 diabetes mellitus with diabetic polyneuropathy (ICD-10 - E11.42) 02/29/2024 Tinea unguium (ICD-10 - B35.1) 02/29/2024 Other hammer toe(s) (acquired), right foot (ICD-10 - M20.41) Patient Educated with: DIABETIC FOOT CARE INSTRUCTIONS. pdf (DIABETIC FOOT CARE INSTRUCTIONS. pdf) 02/29/2024 Other hammer toe(s) (acquired), left foot (ICD-10 - M20.42) Plan Of Treatment Treatment Notes Assessment Notes Other hammer toe(s) (acquired), right fo ot Patient Educated with: DIABETIC FOOT CARE INSTRUCTIONS.pdf (DIABETIC FOOT CARE INSTRUCTIONS.pdf) Pending Test Test Name Order Date 79967-UICAXKJ NAIL, 6 OR MORE 02/29/2024 08878-JFHG SKIN LESIONS, 2 TO 4 02/28/19 25 Next Appt Details Follow Up: prn, Reason: Provider Name:Riley Rodrigues , 05/30/2024 09:00:00 AM, [address] [place] [address], [id number], Procedure Notes * Category Sub-Category Detail Notes Debride Nail 6-10 Nail debridement Due to the cl inical pathology outlined in the exam findings, performance of this nail treatment is medically necessary as its management by an unskilled/untrained nonprofessional would put this patients foot and overall health at risk. Therefore, debridement to affected nail(s), as described in exam ( TA, T1, T4, T5, T6, T8, T9), was performed exclusively by the physician of record to reduce/remove overall nail length, girth, thickness, subungual debris, and necrotic tissue, by manual and/or electrical means through the use of a nail nipper and/or dremel-type tankage grinder operator, to a more viable healthy nail plate or bed tissue 6-10 nails in total. Silver nitrate was used for any petechial bleeding as necessary. Definitive antifungal treatment options, both pharmaceutical and surgical, have been reviewed and discussed with the patient. The patient solely prefers the use of intermittent/as needed professional debridement services for their nail condition and understands the need for additional periodic treatments to maintain effectiveness in symptomatic relief - 09511 Keratoma Treatment Parring or Cutting o f Benign Hyperkeratotic Lesion(s) (-56) 2-4 Lesions - Due to the at risk nature of the patients medical condition as documented in the exam findings, performance of this keratoderma treatment is medically necessary as its management by an unskilled/untrained nonprofessional would put this patients foot and overall health at risk. Therefore, the benign hyperkeratotic lesions, ( 2) in total, locations as stated and described in the exam ( SUB MTH (s), 1, B/L), were pared, and/or cut utilizing a sterile 15 blade, tissue nippers, and/or power dremel instrumentation by the physician of record - 77256 Progress Notes * Lizbeth PARSONMervatOB:1945 (78 yo F)Acc No.[id number]:02/29/2024 Progress Note Patient:?Jossie PARSON Provider:?Riley Rodrigues DPM :1945???Age:78 Y???Sex:Female D ate:02/29/2024 Address:[address] [place] [address], [place], [id number] Pcp:Nathan Nickerson MD Subjective: * Chief Complaints: * ???At Risk FootcareToe Irrit ation * HPI: ???At Risk footcare:?Pt States Last PCP Visit:?Date?12/27/2023 ???Toe pain:?Location:?B/L feet.?Duration:?several years.?Course:?worse.?Aggravated by:?shoes, any pressure.?Treatments:?change in shoes.? * ROS:?General/Constitutional:?Nausea?denies.?Vomiting?denies.?Hunger Thirst?denies.?Loss appetite?denies.?Chills?denies.?Fatigue?denies.?Fever?denies.?Night Sweats?denies.?Unexplained weight loss?denies.?Ophthalmologic:?Blurred vision?denies.?Red eye?denies.?HEENTM:?Dentures?denies.?Dizziness?denies.?Glasses/contacts?admits.?Retinopathy?den ies.?Blurred/double vision?denies.?TMJ?denies.?Discharge/drainage?denies.?Implants?denies.?Hard of hearing denies.?Difficulty chewing/swallowing/speaking?denies.?Nose bleeds?denies.?Sore mouth?denies.?Swollen glands?denies.?Respiratory:?On O xygen?denies.?Pneumonia/pleurisy?denies.?Bronchitis?denies.?Emphysema?denies.?Co ughing?denies.?Cough blood?denies.?Shortness of breath?denies.?Wheezing?denies.?Cardiovascular:?Pacemaker?denies.?MVP?denies.?WPW?denies.?CHF?denies.?Heart attack?denies.?Septal defect?denies.?Rapid beat?denies.?Chest pain ?denies.?Atrial Fib.?denies.?Murmur/Palpitations?denies.?Gastrointestinal:?Hemorrhoids?denies.?Stomach/Abdominal pain?denies.?Dark blood stool?denies.?Irritable bowel ?denies.?Constipation?denies.?Diarrhea?denies.?Vomiting?denies.?Hematology:?Swelling?denies.?Bruising?admits, on anticoagulants.?Bleeding problem?admits, on anticoagulants.?Genitourinary:?Blood urine?denies.?Frequent/Painfu/urination/bladder control?denies.?Kidney stones?denies.?Infection (UTI)?denies.?Nephropathy?denies.?Musculoskeletal:?Hammertoes?admits.?Bunions?denies.?Scoliosis/kyphosis?denies.?Muscle cramps / walking?denies.?Generalized aches and pains?denies.?Weakness??admits, that is mild, bilateral lower extremities.?Integ.:?Weeks?denies.?Scars?denies.?Corns/calluses?admits.?Ingrown nails?admits.?Painful nails?denies.?Rashes?denies.?Neurologic:?Difficulty sleeping?denies.?Bipolar?denies.?Brain disorder?denies.?Balance t rouble?denies.?Confusion?denies.?Fainting/blackouts?denies.?Headache?denies.?Isreal mors?denies.? * Medical History:? * Surgical History:?appendecto my brain surgery hip surgery hysterectomy back surgery 09/2019 * Hospitalization/Major Diagno stic Procedure:?admitted to [facility] for a fall- DX- fracture back for 4 days then Kimber jacob 01/09/2016[facility] [place] [facility] for sliver on left leg stitches were done [address] [place] [address]- rehab back sx 4 weeks 09/2019 * Family History:?Mother: dece ased, diagnosed with Other malignant neoplasm of unspecified site, Diabetic - NIDDM.?Father: .? * Social History:?Tobacco Use:?Tobacco use other than smoking?Are you an other tobacco user??No ?Tobacco Control (Standard)?Tobacco use:?Nonsmoker ?Additional Findings: Tobacco non-user?Current nonsmoker ???Drugs/Alcohol:?Drugs?Have you used drugs other than those for medical reasons in the past 12 months??No ???Miscellaneous:?Caffeine: no. ?Exercise: no. ?Occupation: Retired. ???Drug/Alcohol:?AUDIT-C (Standard)?Did you have a drink containing alcohol in the past year??No ?Points?0 ?Interpretation?Negative * Medications:?TakingbusPIRone HCl Metformin & Diet Manage Prod 500MG once a day Multi Vitamin Lisinopril Simvastatin 20 MG Tablet Orally Once a day Vitamin D Extra Depth Orthopedic Shoes (1 Pair) with Customized Heat Molded Multidensity Innersoles (3 Pair) as directed Dx: NIDDM/Polyneuropathy (E11.42), Hammertoe Foot Deformity (M20.41,M20.42), Preulcerative Skin Lesion(s) (L85.1 Taking busPIRone HCl Taking Metformin & Diet Manage Prod 500MG once a day Taking Multi Vitamin Taking Lisinopril Taking Simvastatin 20 MG Tablet Orally Once a day Taking Vitamin D Taking Extra Depth Orthopedic Shoes (1 Pair) with Customized Heat Molded Multidensity Innersoles (3 Pair) as directed Dx: NIDDM/Polyneuropathy (E11.42), Hammertoe Foot Deformity (M20.41,M20.42), Preulcerative Skin Lesion(s) (L85.1 Not-Taking/PRNLovenox oxyBUTYnin clonazePAM Lisinopril Gabapentin 300 MG Once a day Calcium Citrate Vitamin E 1000 UNIT Capsule Orally Glimepiride Medication List reviewed and reconciled with the patientNot-Taking/PRN Lovenox Not-Taking/PRN oxyBUTYnin Not-Taking/PRN clonazePAM Not-Taking/PRN Lisinopril Not-Taking/PRN Gabapentin 300 MG Once a day Not- Taking/PRN Calcium Citrate Not-Taking/PRN Vitamin E 1000 UNIT Capsule Orally Not-Taking/PRN Glimepiride Medication List reviewed and reconciled with the patient * Allergies:?Dilantin: rashEst er type anesthetics: can't rememberPenicillin: rashyes[Allergies Verified] Objective: * Vitals:?Ht: 5 ft 7 in, Wt:16 0, BMI: 25.06, Shoe size:10, BP:120/70mm Hg, BS:140, Wt-k.57 kg. * ???Past Orders: ???Lab:HEMOGLOBIN A1C (GLYCO HEMOGLOBIN) (Order Date - 02/29/2024) (Collection Date & Time - 12/17/2023 09:19 AM) ? Value Reference Range ?HEMOGLOBIN A1C % (HH) 6.5 * Examination: ???Ophthalmology Referral: ?DIABETES EYE EXAM?Neurological: ?SENSORY:?Neurological exam demonstrates, reduced light touch sensation, [...] debris, TA, T1, T4, T5, T6, T8, T9, all other nails not described with characteristics as possessing mycosis are elongated, overgrown, and dystrophic.?Dermatologic: ?SKIN FINDINGS:?Skin exam reveals Keratotic lesion(s) located [...] properties exacerbate patient's foot/toe deformity .?Vascular: ?DP PULSES (B):? 1-2/4, B/L.?PT PULSES (B):? 1-2/4, B/L.?CAPILLARY FILL TIME:? 3 secs. per digit, B/L.?TROPHIC CONDITION-TEXTURE/ELASTICITY/TURGOR/HAIR GROWTH (B):?normal, B/L.?TEMPERTURE GRADIENT (C):?normal, warm to cool, proximal to distal, B/L.?PIGMENTATION:?normal, B/L.?EDEMA (C):? 1/4, non-pitting, without aching pain, B/L, Leg(s), Ankle(s).?CLAUDICATION (C):?denies, B/L.?REST PAIN:?denies, B/L.?General Examination: ?GENERAL APPEARANCE:?Reveals a pleasant, alert, well nourished, well- developed, well hydrated individual, who demonstrates proper attention to hygiene/body habitus, and is in no acute distress, Pt serves as own historian for office visit today.?ORIENTED:?person, place, and time.?FOOT EXAM:?Footwear Evaluation? Assessment: * Assessment: 1.?Type 2 diabetes mellitus with diabetic polyneuropathy - E11.42 (Primary)???2.?Tinea unguium - B35.1???3.?Other hammer toe(s) (acquired), right foot - M20.41???Specify :Chronic problem, Worse (4)???4.?Other hammer toe(s) (acquired), left foot - M20.42???Specify :Chronic problem, Worse (4)??? Plan: * Treatment: 2.?Other hammer toe(s) (acqu ired), right foot? Notes: Patient Educated with: DIABETIC FOOT CARE INSTRUCTIONS.pdf (DIABETIC FOOT CARE INSTRUCTIONS.pdf)?? * Procedures:?Debride Nail 6-10:?Nail debridement?Due to the clinical pathology outlined in the exam findings, performance of this nail treatment is medically necessary as its management by an unskilled/untrained nonprofessional would put this patients foot and overall health at risk. Therefore, debridement to affected nail(s), as described in exam (?TA,?T1,?T4,?T5,?T6,?T8,?T9), was performed exclusively by the physician of record to reduce/remove overall nail length, girth, thickness, subungual debris, and necrotic tissue, by manual and/or electrical means through the use of a nail nipper and/or dremel-type tankage grinder operator, to a more viable healthy nail plate or bed tissue 6- 10 nails in total. Silver nitrate was used for any petechial bleeding as necessary. Definitive antifungal treatment options, both pharmaceutical and surgical, have been reviewed and discussed with the patient. The patient solely prefers the use of intermittent/as needed professional debridement services for their nail condition and understands the need for additional periodic treatments to maintain effectiveness in symptomatic relief - 52300.?Keratoma Treatment:?Parring or Cutting of Benign Hyperkeratotic Lesion(s)?(-56) 2-4 Lesions - Due to the at risk nature of the patients medical condition as documented in the exam findings, performance of this keratoderma treatment is medically necessary as its management by an unskilled/untrained nonprofessional would put this patients foot and overall health at risk. Therefore, the benign hyperkeratotic lesions, ( 2) in total, locations as stated and described in the exam (?SUB MTH (s),?1,?B/L), were pared, and/or cut utilizing a sterile 15 blade, tissue nippers, and/or power dremel instrumentation by the physician of record - 81089.? * Procedure Codes:?86116 DEBRI DE NAIL, 6 OR MORE, Modifiers: XS 61475 TRIM SKIN LESIONS, 2 TO 4, Modifiers: XS * Preventive Medicine:? ??Counseling:?Discussion:?-13: Office or other outpatient visit for the evaluation and management of an established patient, which required a medically appropriate history and/or examination and LOW level of DECISION MAKING for: 1 STABLE ACUTE UNCOMPLICATED PROBLEM, 2 OR MORE MINOR PROBLEMS, OR 1 STABLE CHRONIC PROBLEM, THAT POSE(S) A LOW RISK FOR MORBIDITY/MORTALITY. The visit on the day of the [...] confirmed a full understanding of the above information, Patient defers recommended Orthopedic shoes.? ??Screening/Special Tests:?Fall Risk?Screening:?No falls in the past year ?FALLS: Screening for Future Fall Risk?Have you had any falls with injury in the past year??No * Follow Up:?prn * Images: * Sign off status: Completed true * Provider:?Riley Rodrigues DPM Date:?2024 Generated for Lashay oshea/Nico/Lisa on:?03/07/2024 12:19 PM EST History and Physical Notes * [...] Skin exam reveal s Keratotic lesion(s) located at, SUB MTH (s), 1, B/L Orthopedic FOOT MORPHOLOGY: Pes Cavus struc ture, [...] Lower Extremity Neurological Exa m performed:: Yes Visual exam of foot performed:: Yes Date: 02/29/2024 ORIENTED: person, place, and t iban Footwear Evaluation Footwear Evaluation performe d:: Yes Ophthalmology Referral DIABETES EYE EXAM Procedure Perform ed:: Yes ?Date of Exam Performed: 03/03/2023 Diabetic Retinopathy Screening:: Yes Findings of Diabetic Eye Exam:: [...] debris, TA, T1, T4, T5, T6, T8, T9, all other nails not described with characteristics as possessing mycosis are elongated, overgrown, and dystrophic
--- OUTSIDE RECORDS SUMMARY | 2024-03-07 12:19 | XMS_ITS | Clinical Summary ---
Author Organization [facility] it[facility] Address [address] [place] [address] Care Team Providers Care Groundskeeper Supervisor Name Role Phone Nathan Nickerson MD Primary Care Provider [phone] Social History Tobacco Use Types Packs/Day Years Used Date Smoking Tobacco: Never Assessed Sex and Gender Information Value Date Recorded Sex Assigned at Not on file Gender Identity Not on file Sexual Orientation Not on file Plan of Treatment Health Maintenance Due Date Last Done Comments DTaP,Tdap,and Td Vaccines (1 - Tdap) 1964 Zoster Vaccines (1 of 2) 07/02/1995 Pneumococcal Vaccine: 65+ Ye ars (1 of 1 - PCV) 2010 RSV Immunization Patients 60 + Years Old (1 - 1-dose 75+ series) 2020 COVID-19 Vaccine ( - 2023-2 5 season) 2023 Influenza Vaccine (#1) 2023 HIB Vaccines Aged Out No longer eligi ble based on patient's age to complete this topic HPV Vaccines Aged Out No longer eligi ble based on patient's age to complete this topic Hepatitis A Vaccines Aged Out No long er eligible based on patient's age to complete this topic Hepatitis B Vaccines Aged Out No long er eligible based on patient's age to complete this topic IPV Vaccines Aged Out No longer eligi ble based on patient's age to complete this topic MMR Vaccines Aged Out No longer eligi ble based on patient's age to complete this topic Meningococcal ACWY Vaccine Aged Out N o longer eligible based on patient's age to complete this topic RSV Immunization Patients Un ludivina 20 months Aged Out No longer eligible b ased on patient's age to complete this topic Varicella Vaccines Aged Out No longer eligible based on patient's age to complete this topic Advance Directives Documents on File Type Date Recorded 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
--- OUTSIDE RECORDS SUMMARY | 2024-03-07 12:19 | XMS_ITS ---
Author Organization [facility] Address [address] [place] [address] Care Team Providers Care Genetic Physician Name Role Phone Nathan Nickerson MD Primary Care Provider Riley Otoole Unavailable [phone] Allergies Allergen (clinical drug ingredient) Drug/Non Drug [...] Ordered Date Performed Result Body Sit e 78271-DFUWVLF NAIL, 6 OR MORE 08/10/2023 N/A 48676-UFOX SKIN LESIONS, 2 TO 4 08/10/2023 N/A Encounters Encounter Location Date Provider Diagnosis [facility] [address] [address] 08/10/2023 Riley Rodrigues Type 2 diabetes mellitus with diabetic polyneuropathy E11.42 and Tinea unguium B35.1 Assessments Encounter Date Diagnosis (ICD Code) Assessment Notes Treatment Notes Treatment Clinical Notes Section Notes 08/10/2023 Type 2 diabetes mellitus with diabetic polyneuropathy (ICD-10 - E11.42) 08/10/2023 Tinea unguium (ICD-10 - B35.1) 08/10/2023 Other Plan Of Treatment Pending Test Test Name Order Date 29117-VLPXITJ NAIL, 6 OR MORE 08/10/2023 13305-HWRI SKIN LESIONS, 2 TO 4 08/10/19 24 Next Appt Details Follow Up: prn, Reason: Provider Name:Riley Rodrigues , 05/30/2024 09:00:00 AM, [address] [place] [address], [phone], Procedure Notes * Category Sub-Category Detail Notes [...] as necessary. Patient chooses, no pharmaceutical tx (90710) Keratoma Treatment Parring or Cutting o f Benign Hyperkeratotic Lesion(s) 05832 (2-4 Lesions) - The Benign hyperkeratotic lesions, as described above were pared, and/or cut utilizing a sterile #15 blade, tissue nippers, and/or dremel Progress Notes * John PARSONOB:1945 (78 yo F)Acc No.[id number]:08/10/2023 Progress Note Patient:Jossie Jang Provider:?Riley Rodrigues DPM :1945???Age:78 Y???Sex:Female D ate:08/10/2023 Address:[address] [place], [place] [id number] Pcp:Nathan Nickerson MD Subjective: * Chief Complaints: [...] 09/2019 * Hospitalization/Major Diagno stic Procedure:?admitted to [facility] for a fall- DX- fracture back for 4 days then Kimber jacob 01/09/2016[facility] [place] for sliver on left leg stitches were done [address] [place] [address]- rehab back sx 4 weeks 09/2019 * [...] as necessary. Patient chooses, no pharmaceutical tx (89832).?Keratoma Treatment:?Parring or Cutting of Benign Hyperkeratotic Lesion(s)?79515 (2-4 Lesions) - The Benign hyperkeratotic lesions, as described above were pared, and/or cut utilizing a sterile #15 blade, tissue nippers, and/or dremel.? * Procedure Codes:?03143 DEBRI DE NAIL, 6 OR MORE, Modifiers: XS 48439 TRIM SKIN LESIONS, 2 TO 4, Modifiers: XS * Follow Up:?prn * Images: * Sign off status: Completed Addendum: * ? true * Provider:?Riley Rodrigues DPM Date:?2023 Generated for Lashay oshea/Nico/Judithsmitting on:?03/07/2024 12:19 PM EST History and Physical [...]
--- OUTSIDE RECORDS SUMMARY | 2024-03-07 12:19 | XMS_ITS ---
Author Organization [facility] Address [address] [place] [address] Care Team Providers Care Bowling Ball Mold Assembler Name Role Phone Nathan Nickerson MD Primary Care Provider Riley Otoole Unavailable [phone] Allergies Allergen (clinical drug ingredient) Drug/Non Drug Allergy documented on EMR Reaction Allergy Type Onset Date Status Jazmyn type anesthetics (uncoded) can't remember Allergy Active phenytoin Dilantin rash Drug Allergy Active Penicillin rash Drug Allergy Active REASON FOR VISIT At Risk Footcare Medications Medication SIG (Take, Route, Frequency, Duration) Notes Start Date End Date Status busPIRone HCl Active Lovenox Active Lisinopril Active Multi Vitamin Active Metformin & Diet Manage Prod 500MG once a day Active Lisinopril Not-Takin g Glimepiride Not-Taki ng Vitamin E 1000 UNIT Orally Not-Taking Calcium Citrate Not- Taking Gabapentin 300 MG Once a day N ot-Taking clonazePAM Not-Takin g Extra Depth Orthopedic Shoes (1 Pair) with Customized Heat Molded Multidensity Innersoles (3 Pair) as directed Dx: NIDDM/Polyneuropathy (E11.42), Hammertoe Foot Deformity (M20.41,M20.42), Preulcerative Skin Lesion(s) (L85.1 05/11/2023 Active Vitamin D Active Simvastatin 20 MG Orally Once a day Active oxyBUTYnin Active Social History Tobacco Use: Social History Observation [...] Signs Height 5 ft 7 in in 11/12/2023 Weight 160 lbs 11/12/2023 BMI 25.06 kg/m2 11/12/2023 Blood pressure systolic 120 mm Hg 11/12/19 Blood pressure diastolic 80 mm Hg 024 Procedures Procedure Date Ordered Date Performed Result Body Sit e 18017-RGTHNGE NAIL, 6 OR MORE 11/12/2023 N/A 79751-MNBZ SKIN LESIONS, 2 TO 4 11/12/2023 N/A Encounters Encounter Location Date Provider Diagnosis [facility] [address] [address] 11/12/2023 Riley Rodrigues Type 2 diabetes mellitus with diabetic polyneuropathy E11.42 and Tinea unguium B35.1 Assessments Encounter Date Diagnosis (ICD Code) Assessment Notes Treatment Notes Treatment Clinical Notes Section Notes 11/12/2023 Type 2 diabetes mellitus with diabetic polyneuropathy (ICD-10 - E11.42) 11/12/2023 Tinea unguium (ICD-10 - B35.1) 11/12/2023 Other Plan Of Treatment Pending Test Test Name Order Date 73994-LOUQSSO NAIL, 6 OR MORE 11/12/2023 53392-IPKD SKIN LESIONS, 2 TO 4 11/12/19 24 Next Appt Details Follow Up: prn, Reason: Provider Name:Riley Rodrigues , 05/30/2024 09:00:00 AM, [address] [place] [address], [address], Procedure Notes * Category Sub-Category Detail Notes Debride Nail 6-10 Nail debridement Performance o f this nail treatment by a nonprofessional would put this patients foot and overall health at risk. Therefore, nail debridement was performed extensively to reduce/remove overall nail length, girth, thickness, subungual debris, and necrotic tissue, by manual and/or electrical means through the use of a nail nipper and/or dremel-type automatic grinder operator, to a more viable healthy nail plate or bed tissue 6-10. Silver nitrate used for any petechial bleeding as necessary. Definitive antifungal treatment options have been reviewed and discussed with the patient. The patient chooses, no pharmaceutical tx - 51408 Keratoma Treatment Parring or Cutting o f Benign Hyperkeratotic Lesion(s) (-56) 2-4 Lesions - The Benign hyperkeratotic lesions, as described above were pared, and/or cut utilizing a sterile 15 blade, tissue nippers, and/or dremel - 24103 Progress Notes * John PARSONOB:1945 (78 yo F)Acc No.[id number]:11/12/2023 Progress Note Patient:?Jossie Parson Provider:?Riley Rodrigues DPM :1945???Age:78 Y???Sex:Female D ate:11/12/2023 Address:[address] [place], [place] [address] Pcp:Nathan Nickerson MD Subjective: * Chief Complaints: * ???At Risk Footcare * HPI: ???At Risk footcare:?Pt States Last PCP Visit:?Date?10/25/2023 * ROS:?General/Constitutional:?Nausea?denies.?Vomiting?denies.?Hunger Thirst?denies.?Loss appetite?denies.?Chills?denies.?Fatigue?denies.?Fever?denies.?Night Sweats?denies.?Unexplained weight loss?denies.?Ophthalmologic:?Blurred [...] 09/2019 * Hospitalization/Major Diagno stic Procedure:?admitted to [facility] for a fall- DX- fracture back for 4 days then Kimber jacob 01/09/2016[facility] for sliver on left leg stitches were done [address] [place] [address]- rehab back sx 4 weeks 09/2019 * [...] 0, BMI:25.06, Shoe size:10, BP:120/80 mm Hg, BS:149. * Examination: ???Neurological: ?SENSORY:?Neurological exam demonstrates, reduced [...] Plan: * Treatment: * Procedures:?Debride Nail 6-10:?Nail debridement?Performance of this nail treatment by a nonprofessional would put this patients foot and overall health at risk. Therefore, nail debridement was performed extensively to reduce/remove overall nail length, girth, thickness, subungual debris, and necrotic tissue, by manual and/or electrical means through the use of a nail nipper and/or dremel-type automatic grinder operator, to a more viable healthy nail plate or bed tissue 6-10. Silver nitrate used for any petechial bleeding as necessary. Definitive antifungal treatment options have been reviewed and discussed with the patient. The patient chooses, no pharmaceutical tx - 33506.?Keratoma Treatment:?Parring or Cutting of Benign Hyperkeratotic Lesion(s)?(-56) 2-4 Lesions - The Benign hyperkeratotic lesions, as described above were pared, and/or cut utilizing a sterile 15 blade, tissue nippers, and/or dremel - 31474.? * Procedure Codes:?96394 DEBRI DE NAIL, 6 OR MORE, Modifiers: XS 04565 TRIM SKIN LESIONS, 2 TO 4, Modifiers: XS * Follow Up:?prn * Images: * Sign off status: Completed true * Provider:?Riley Rodrigues DPM Date:?2023 Generated for Lashay oshea/Nico/Grantitting on:?03/07/2024 12:19 PM EST History and Physical [...]
--- OUTSIDE RECORDS SUMMARY | 2024-03-07 12:19 | XMS_ITS | Patient Health Record ---
Author Organization [facility] Address [address] [place] [address] Care Team Providers Care Purchaser Automotive Parts Name Role Phone Nathan Nickerson MD Primary Care Provider Evaristo Olivas [phone] ALLERGIES Allergen (clinical drug ingredient) Drug/Non Drug Allergy documented on EMR Reaction Allergy Type Onset Date Status penicillin G Penicillin G Potassium Unknown Drug Allergy Active phenytoin Dilantin Unknown Drug Allergy Active REASON FOR [...] malignant neoplasm of colon (Z12.11) Active confirmed 526590937 Problem Family history of colon cancer (Z80.0) Active confirmed 944615986 Problem Preprocedural examination (Z01.818) Active confirmed 470715570481515 Problem Long-term use of high-risk medication (Z79.899) Active confirmed 497432843 Problem Heme + stool (R19.5) Active confirmed Abnormal feces (448311945) Problem Diverticulosis of colon (K57.30) Active confirmed Diverticulosi s of colon (348074672) PLAN OF TREATMENT Pending Test Test Name Order Date Pathology 11/03/2021 Future Test Test Name Order Date COLONOSCOPY 03/17/2018 COLONOSCOPY 10/09/2021 Insurance Providers Payer Name Payer Address Payer Phone Subscriber Number Group Number Insured Name Patient Relationship to Insured Coverage Start Date Coverage End Date MEDICARE OF [place] [address] [place] [address] [id number] BIPIN SLATER Self - patient is the insured [facility] [employer] [address] [place] [address] [id number] BIPIN SLATER Self - patient is the insured MEDICAL (GENERAL) HISTORY Medical History History ICD Code NIDDM Denies MS,CVA,Lung disease,renal disease Neg. 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
--- OUTSIDE RECORDS SUMMARY | 2024-03-07 12:19 | XMS_ITS | Patient Health Record ---
Author Organization [facility] Address [address] [place] [address] Care Team Providers Care Aws Software Development Engineer Name Role Phone Nathan Nickerson MD Primary Care Provider Riley Otoole Unavailable [phone] Allergies Allergen (clinical drug ingredient) Drug/Non Drug Allergy documented on EMR Reaction Allergy Type Onset Date Status Jazmyn type anesthetics (uncoded) can't remember Allergy Active phenytoin Dilantin rash Drug Allergy Active Penicillin rash Drug Allergy Active Results Component Value Reference Range Notes HEMOGLOBIN A1C (GLYCOHEMOGLO BIN) Reviewed date:02/29/2024 09:34:18 AM Interpretation: Performing Lab: Notes/Report: HEMOGLOBIN A1C % (HH) 6.5 HEMOGLOBIN A1C (GLYCOHEMOGLO BIN) Reviewed date:02/29/2024 09:20:21 AM Interpretation: Performing Lab: Notes/Report: HEMOGLOBIN A1C % (HH) 6.5 Reason For Referral No Information Medications Medication SIG (Take, Route, Frequency, Duration) Notes Start Date End Date Status busPIRone HCl Active Gabapentin 300 MG Once a day N ot-Taking Lisinopril Not-Takin g Multi Vitamin Active Metformin & Diet Manage Prod 500MG once a day Active Calcium Citrate Not- Taking Vitamin D Active Simvastatin 20 MG Orally Once a day Active clonazePAM Not-Takin g Extra Depth Orthopedic Shoes (1 Pair) with Customized Heat Molded Multidensity Innersoles (3 Pair) as directed Dx: NIDDM/Polyneuropathy (E11.42), Hammertoe Foot Deformity (M20.41,M20.42), Preulcerative Skin Lesion(s) (L85.1 05/11/2023 Active Lisinopril Active Glimepiride Not-Taki ng Vitamin E 1000 UNIT Orally Not-Taking oxyBUTYnin Not-Takin g Lovenox Not-Taking Immunizations Vaccine Route Administration Date Status Comme [...] ast year? No Points 0 Interpretation Negative Problems Problem Type SNOMED Code ICD Code Onset Dates Problem Status W/U Status Risk Notes Problem Acquired hammer toe of right foot (6791493036153372 ) Other hammer toe(s) (acquired), right foot (M20.41) Active confirmed Problem Acquired hammer toe of left foot (7652136441238444 ) Other hammer toe(s) (acquired), left foot (M20.42) Active confirmed Problem Polyneuropathy due to type 2 diabetes mellitus (796709662) Type 2 diabetes mellitus with diabetic polyneuropathy (E11.42) Active confirmed Vital Signs Blood pressure diastolic 70 mm Hg 02/29/2024 Height 5 ft 7 in in 02/29/2024 Blood pressure systolic 120 mm Hg 02/29/2024 Weight 160 lbs 02/29/2024 BMI 25.06 kg/m2 02/29/2024 Procedures Procedure Date Ordered Date Performed Result Body Sit e 83718-MOKYOGI NAIL, 6 OR MORE 05/11/2023 N/A 09814-LLEV SKIN LESIONS, 2 TO 4 05/11/2023 N/A 92478-XCZTOID NAIL, 6 OR MORE 08/10/2023 N/A 10686-IXLP SKIN LESIONS, 2 TO 4 08/10/2023 N/A 20791-OGIJZOA NAIL, 6 OR MORE 11/12/2023 N/A 30190-LIPO SKIN LESIONS, 2 TO 4 11/12/2023 N/A 65949-RKLMLRR NAIL, 6 OR MORE 02/29/2024 N/A 62186-FCQZ SKIN LESIONS, 2 TO 4 02/29/2024 N/A Encounters Encounter Location Date Provider Diagnosis [address] [address] 05/11/2023 Rileyenrique DaleyRavi Type 2 diabetes mellitus with diabetic polyneuropathy E11.42 ; Tinea unguium B35.1 ; Other hammer toe(s) (acquired), right foot M20.41 and Other hammer toe(s) (acquired), left foot M20.[address] [address] 08/10/2023 Riley Ravi Type 2 diabetes mellitus with diabetic polyneuropathy E11.42 and Tinea unguium B35.[address] [address] 11/12/2023 Riley Ravi Type 2 diabetes mellitus with diabetic polyneuropathy E11.42 and Tinea unguium B35.[address] [address] 02/29/2024 Riley Ravi Type 2 diabetes mellitus with diabetic polyneuropathy [...] E11.42) 11/12/2023 Tinea unguium (ICD-10 - B35.1) 02/29/2024 Type 2 diabetes mellitus with diabetic polyneuropathy (ICD-10 - E11.42) 02/29/2024 Tinea unguium (ICD-10 - B35.1) 02/29/2024 Other hammer toe(s) (acquired), right foot (ICD-10 - M20.41) Patient Educated with: DIABETIC FOOT CARE INSTRUCTIONS. pdf (DIABETIC FOOT CARE INSTRUCTIONS. pdf) 05/11/2023 Other hammer toe(s) (acquired), right foot (ICD-10 - M20.41) Patient Educated with: DIABETIC FOOT CARE INSTRUCTIONS. pdf (DIABETIC FOOT CARE INSTRUCTIONS. pdf) 05/11/2023 Other hammer toe(s) (acquired), left foot (ICD-10 - M20.42) 02/29/2024 Other hammer toe(s) (acquired), left foot (ICD-10 - M20.42) 08/10/2023 Other 11/12/2023 Other Plan Of Treatment Pending Test Test Name Order Date Hemoglobin A1c 03/12/2015 20297-PHCBJEL NAIL, 6 OR MORE 03/12/2015 51136-SDREBES NAIL, 6 OR MORE 06/21/2015 16847-IYNWJIC NAIL, 6 OR MORE 09/24/2015 57109-FLTXJWS NAIL, 6 OR MORE 12/27/2015 62142-QTCAWNL NAIL, 6 OR MORE 04/03/2016 19518-YTNWJXZ NAIL, 6 OR MORE 07/07/2016 14953-JOSCQUS NAIL, 6 OR MORE 10/16/2016 39597-ISJJSEW NAIL, 6 OR MORE 01/22/2017 54601-TRNTSHA NAIL, 6 OR MORE 04/30/2017 93297-VJATOGT NAIL, 6 OR MORE 07/30/2017 42485-JYLMVMA NAIL, 6 OR MORE 11/02/2017 23324-LONCFSG NAIL, 6 OR MORE 02/25/2018 84007-RGLMLNF NAIL, 6 OR MORE 05/31/2018 42241-LLQXOVQ NAIL, 6 OR MORE 09/06/2018 47354-HWSLTJY NAIL, 6 OR MORE 11/25/2018 25796-DKJYFFI NAIL, 6 OR MORE 03/07/2019 58429-NRKSJJI NAIL, 6 OR MORE 11/11/2010 60772-BRXAWSL NAIL, 6 OR MORE 02/03/2011 23434-ZQLAJKU NAIL, 6 OR MORE 05/12/2011 23401-MMERGYG NAIL, 6 OR MORE 08/04/2011 88830-CRCEUTU NAIL, 6 OR MORE 11/06/2011 98831-IKCPJBB NAIL, 6 OR MORE 01/29/2012 70376-PCKNNOX NAIL, 6 OR MORE 05/06/2012 61087-PNVWGLD NAIL, 6 OR MORE 07/29/2012 79604-KPWUPDV NAIL, 6 OR MORE 10/28/2012 45584-YKVYIKU NAIL, 6 OR MORE 01/31/2013 18426-WHUNYWZ NAIL, 6 OR MORE 05/09/2013 94568-MRLURVH NAIL, 6 OR MORE 08/15/2013 08302-CWZROAR NAIL, 6 OR MORE 11/21/2013 77678-YHVVYGA NAIL, 6 OR MORE 02/27/2014 89655-YOFFHGJ NAIL, 6 OR MORE 05/29/2014 05858-FWDIRAW NAIL, 6 OR MORE 09/04/2014 30596-HFFTOOD NAIL, 6 OR MORE 12/04/2014 88493-KCUYHLM NAIL, 6 OR MORE 11/21/2019 90446-BNARXTN NAIL, 6 OR MORE 02/27/2020 11871-CZCHYYK NAIL, 6 OR MORE 05/28/2020 56791-GHBDIOE NAIL, 6 OR MORE 09/06/2020 10136-JKLIXEZ NAIL, 6 OR MORE 12/10/2020 40034-SEPJEZL NAIL, 6 OR MORE 04/29/2021 94508-TWNVOGR NAIL, 6 OR MORE 09/09/2021 67517-ZWSYVMX NAIL, 6 OR MORE 12/16/2021 75944-BAWFGTY NAIL, 6 OR MORE 04/10/2022 58300-BLECXOE NAIL, 6 OR MORE 07/17/2022 82541-DEQMUFC NAIL, 6 OR MORE 10/23/2022 56696-ZYCYCTT NAIL, 6 OR MORE 02/02/2023 65276-EVHNEZO NAIL, 6 OR MORE 05/11/2023 91532-ZULGEBR NAIL, 6 OR MORE 08/10/2023 84129-RLZAOCN NAIL, 6 OR MORE 11/12/2023 16000-QPIORBK NAIL, 6 OR MORE 02/29/2024 76621-Zpjyvjah Plate 02/27/2020 93155-Qrbqgiro Plate 02/02/2023 67895-Unxenjor Plate 03/12/2015 66091 I&D ABSCESS- SIMPLE,SINGLE 012 31903-GUTX SKIN LESIONS, OVER 4 03/12/19 16 80874-PLZE SKIN LESIONS, OVER 4 09/24/19 16 19788-WDDR SKIN LESIONS, OVER 4 06/21/19 16 46659-LOJF SKIN LESIONS, OVER 4 01/23/20 17 02563-USDF SKIN LESIONS, OVER 4 10/17/19 17 58399-RQWX SKIN LESIONS, OVER 4 04/03/19 17 68525-JIWY SKIN LESIONS, OVER 4 07/08/19 17 58413-IMGJ SKIN LESIONS, OVER 4 12/27/19 16 30802-XJCD SKIN LESIONS, OVER 4 02/25/19 19 69105-AUNV SKIN LESIONS, OVER 4 11/03/19 18 15199-YQID SKIN LESIONS, OVER 4 07/31/19 18 29438-WFJV SKIN LESIONS, OVER 4 05/01/19 18 28257-XVMW SKIN LESIONS, OVER 4 12/05/19 15 21031-GIGK SKIN LESIONS, OVER 4 09/05/19 15 04692-GYER SKIN LESIONS, OVER 4 05/30/19 15 00732-TKAT SKIN LESIONS, OVER 4 02/27/19 15 97690-YJOP SKIN LESIONS, OVER 4 11/22/19 14 76146-WCYU SKIN LESIONS, OVER 4 08/16/19 14 28201-USOZ SKIN LESIONS, OVER 4 05/10/19 14 14664-NDWA SKIN LESIONS, OVER 4 02/01/20 13 93156-LWBQ SKIN LESIONS, 2 TO 4 10/29/19 13 16125-DSQX SKIN LESIONS, 2 TO 4 07/30/19 13 98234-UPKW SKIN LESIONS, 2 TO 4 05/07/19 13 49355-NZRQ SKIN LESIONS, 2 TO 4 01/29/20 12 42560-PCFL SKIN LESIONS, 2 TO 4 11/06/19 12 76595-OAAY SKIN LESIONS, 2 TO 4 08/04/19 12 38002-DBMV SKIN LESIONS, 2 TO 4 05/12/19 12 16397-NBPN SKIN LESIONS, 2 TO 4 03/07/19 20 92268-LQND SKIN LESIONS, 2 TO 4 11/26/19 19 60269-PDHL SKIN LESIONS, 2 TO 4 09/07/19 19 79695-XFIT SKIN LESIONS, 2 TO 4 06/01/19 19 68434-XSKS SKIN LESIONS, 2 TO 4 05/11/19 24 52434-FIQM SKIN LESIONS, 2 TO 4 11/12/19 24 58235-ILJG SKIN LESIONS, 2 TO 4 08/10/19 24 44740-ZHDT SKIN LESIONS, 2 TO 4 02/03/20 09673-MJYM SKIN LESIONS, 2 TO 4 10/24/19 37756-LSKY SKIN LESIONS, 2 TO 4 07/18/19 28645-ZQCW SKIN LESIONS, 2 TO 4 04/10/19 52935-LLDG SKIN LESIONS, 2 TO 4 12/17/19 59416-OIHP SKIN LESIONS, 2 TO 4 09/10/19 27692-BXSM SKIN LESIONS, 2 TO 4 04/30/19 64240-RXBY SKIN LESIONS, 2 TO 4 12/11/19 21890-HEBS SKIN LESIONS, 2 TO 4 09/07/19 41431-FFSE SKIN LESIONS, 2 TO 4 05/29/19 37949-WYHN SKIN LESIONS, 2 TO 4 02/26/19 57722-YHWT SKIN LESIONS, 2 TO 4 11/21/19 13264-EQLK SKIN LESIONS, 2 TO 4 02/28/19 Next Appt Details Provider Name:Riley Rodrigues , 05/30/2024 09:00:00 AM, [address] [place], [address], Insurance Providers Payer Name Payer Address Payer Phone Subscriber Number Group Number Insured Name Patient Relationship to Insured Coverage Start Date Coverage End Date Medicare National Govt [facility] [address] [facility] [place] [address] [id number] Jossie Parson Self - patient is the insured 1 [employer]) [address] [place] [address] [id number] Jossie Parson Self - patient is the insured Medical (General) History Medical History History ICD Code Cholesterol psoriasis osteoporosis cancer broken bones hypertension Diabetic type ll Surgical History Surgery Date(Month/Year) appendectomy brain surgery hip surgery hysterectomy back surgery 09/2019 Hospitalization History Reason Date(Month/Year) [facility]- rehab back sx 4 weeks [facility] [place]ver on left leg stitches w ere done 2016 admitted to [facility] for a f all- DX- fracture back for 4 days then Kimber jacob 01/09/2016
== END 2024-03-07 12:29 | disposition home or self-care (01) ==
PROVIDERS: PCP Internal Medicine; Visit Provider Internal Medicine Endocrinology, Diabetes & Metabolism
DX: M81.0 Age-related osteoporosis without current pathological fracture (principal)
CPT/HCPCS: 99213

== ENCOUNTER → 2024-03-07 10:47 | Outpatient (BNVA) | payer MEDICARE, OTHER, SELFPAY | PROVIDERS: PCP Internal Medicine; Visit Provider Internal Medicine Endocrinology, Diabetes & Metabolism | DX: M81.0 Age-related osteoporosis without current pathological fracture (principal); E83.52 Hypercalcemia | CPT/HCPCS: 96372; 99212; J0897 ==

== ENCOUNTER 2024-03-16 11:20 | Outpatient (REF) | payer MEDICARE, OTHER, SELFPAY ==
--- OUTSIDE RECORDS SUMMARY | 2024-03-16 15:13 | XMS_ITS | Patient Health Record ---
Author Organization [facility] Address [address] [place] [address] Care Team Providers Care Child Health Associate Name Role Phone Nathan Nickerson MD Primary Care Provider Evaristo Olivas [phone] ALLERGIES Allergen (clinical drug ingredient) Drug/Non Drug [...] malignant neoplasm of colon (Z12.11) Active confirmed 665054651 Problem Family history of colon cancer (Z80.0) Active confirmed 576219251 Problem Preprocedural examination (Z01.818) Active confirmed 109799614666805 Problem Long-term use of high-risk medication (Z79.899) Active confirmed 909265815 Problem Heme + stool (R19.5) Active confirmed Abnormal feces (092103521) Problem Diverticulosis of colon (K57.30) Active confirmed Diverticulosi s of colon (091106977) PLAN OF TREATMENT Pending Test Test Name Order Date Pathology 11/03/2021 Future Test Test Name Order Date COLONOSCOPY 03/17/2018 COLONOSCOPY 10/09/2021 Insurance Providers Payer Name Payer Address Payer Phone Subscriber Number Group Number Insured Name Patient Relationship to Insured Coverage Start Date Coverage End Date MEDICARE OF [place] [address] [place] [address] [id number] BIPIN SLATER Self - patient is the insured [facility] [employer] [address] [place] [address] [id number] BIPIN SLATER Self - patient is the insured MEDICAL (GENERAL) HISTORY Medical History History ICD Code NIDDM Denies GA,CVA,Lung disease,renal disease Neg. 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 ---finished treatments with Chemo and XRT in 2007--she reports that she is cancer free Right leg neuropathy Hyperlipidemia Osteoporosis Hemoccult + in 2021 Surgical History Surgery Date(Month/Year) [employer] [facility] 2007 Fractured hip right side--pinned Appendectomy Laminectomy 2018 Tonsillectomy
--- OUTSIDE RECORDS SUMMARY | 2024-03-16 15:13 | XMS_ITS ---
Author Organization [facility] Address [address] [place] [address] Care Team Providers Care Flying Instructor Name Role Phone Nathan Nickerson MD Primary Care Provider Riley Otoole Unavailable [phone] Allergies Allergen (clinical drug ingredient) Drug/Non Drug [...] Ordered Date Performed Result Body Sit e 41910-UBQTLDH NAIL, 6 OR MORE 08/10/2023 N/A 69627-ONWK SKIN LESIONS, 2 TO 4 08/10/2023 N/A Encounters Encounter Location Date Provider Diagnosis [facility] [address] [address] 08/10/2023 Riley Rodrigues Type 2 diabetes mellitus with diabetic polyneuropathy E11.42 and Tinea unguium B35.1 Assessments Encounter Date Diagnosis (ICD Code) Assessment Notes Treatment Notes Treatment Clinical Notes Section Notes 08/10/2023 Type 2 diabetes mellitus with diabetic polyneuropathy (ICD-10 - E11.42) 08/10/2023 Tinea unguium (ICD-10 - B35.1) 08/10/2023 Other Plan Of Treatment Pending Test Test Name Order Date 52137-GMQLYBL NAIL, 6 OR MORE 08/10/2023 66763-ZBWK SKIN LESIONS, 2 TO 4 08/10/19 24 Next Appt Details Follow Up: prn, Reason: Provider Name:Riley Rodrigues , 05/30/2024 09:00:00 AM, [address] [place] [address], [phone], Procedure Notes * Category Sub-Category Detail Notes [...] as necessary. Patient chooses, no pharmaceutical tx (20160) Keratoma Treatment Parring or Cutting o f Benign Hyperkeratotic Lesion(s) 49315 (2-4 Lesions) - The Benign hyperkeratotic lesions, as described above were pared, and/or cut utilizing a sterile #15 blade, tissue nippers, and/or dremel Progress Notes * John PARSONOB:1945 (78 yo F)Acc No.[id number]:08/10/2023 Progress Note Patient:Jossie Jang Provider:?Riley Rodrigues DPM :1945???Age:78 Y???Sex:Female D ate:08/10/2023 Address:[address] [place], [place] [address] Pcp:Nathan Nicekrson MD Subjective: * Chief Complaints: * ???At [...] 09/2019 * Hospitalization/Major Diagno stic Procedure:?admitted to [facility] for a fall- DX- fracture back for 4 days then Kimber jacob 01/09/[facility] for sliver on left leg stitches were done [address] [place] [address]- rehab back sx 4 weeks 09/2019 * [...] as necessary. Patient chooses, no pharmaceutical tx (59151).?Keratoma Treatment:?Parring or Cutting of Benign Hyperkeratotic Lesion(s)?82986 (2-4 Lesions) - The Benign hyperkeratotic lesions, as described above were pared, and/or cut utilizing a sterile #15 blade, tissue nippers, and/or dremel.? * Procedure Codes:?24608 DEBRI DE NAIL, 6 OR MORE, Modifiers: XS 15145 TRIM SKIN LESIONS, 2 TO 4, Modifiers: XS * Follow Up:?prn * Images: * Sign off status: Completed Addendum: * ? true * Provider:?Riley Rodrigues DPM Date:?2023 Generated for Lashay oshea/Nico/Grantitting on:?03/16/2024 03:12 PM EST History and Physical Notes * [...]
--- OUTSIDE RECORDS SUMMARY | 2024-03-16 15:13 | XMS_ITS | Patient Health Record ---
Author Organization [facility] Address [address] [place] [address] Care Team Providers Care Automotive Airconditioning Mechanic Name Role Phone Nathan Nickerson MD Primary Care Provider Riley Otoole Unavailable [phone] Allergies Allergen (clinical drug ingredient) Drug/Non Drug [...] Problem Acquired hammer toe of right foot (7085804528013350 ) Other hammer toe(s) (acquired), right foot (M20.41) Active confirmed Problem Acquired hammer toe of left foot (1026280754877102 ) Other hammer toe(s) (acquired), left foot (M20.42) Active confirmed Problem Polyneuropathy due to type 2 diabetes mellitus (674630938) Type 2 diabetes mellitus with diabetic polyneuropathy (E11.42) Active confirmed Vital Signs Blood pressure diastolic 70 mm Hg 02/29/2024 Height 5 ft 7 in in 02/29/2024 Blood pressure systolic 120 mm Hg 02/29/2024 Weight 160 lbs 02/29/2024 BMI 25.06 kg/m2 02/29/2024 Procedures Procedure Date Ordered Date Performed Result Body Sit e 56576-BTGDKHT NAIL, 6 OR MORE 05/11/2023 N/A 22551-TQSF SKIN LESIONS, 2 TO 4 05/11/2023 N/A 38730-YAMVTRD NAIL, 6 OR MORE 08/10/2023 N/A 04077-AFQS SKIN LESIONS, 2 TO 4 08/10/2023 N/A 99559-ZIFQOBI NAIL, 6 OR MORE 11/12/2023 N/A 54191-HPXC SKIN LESIONS, 2 TO 4 11/12/2023 N/A 31059-JWYNXKO NAIL, 6 OR MORE 02/29/2024 N/A 97924-RYDD SKIN LESIONS, 2 TO 4 02/29/2024 N/A Encounters Encounter Location Date Provider Diagnosis [address] [address] 05/11/2023 Rileyenrique DaleyRavi Type 2 diabetes mellitus with diabetic polyneuropathy E11.42 ; Tinea unguium B35.1 ; Other hammer toe(s) (acquired), right foot M20.41 and Other hammer toe(s) (acquired), left foot M20.[address] [address] 08/10/2023 Riley Ravi Type 2 diabetes mellitus with diabetic polyneuropathy E11.42 and Tinea unguium B35.[address] [address] 11/12/2023 Riley Ravi Type 2 diabetes mellitus with diabetic polyneuropathy E11.42 and Tinea unguium B35.[address] [address] 02/29/2024 Riley Ravi Type 2 diabetes mellitus [...] Test Name Order Date Hemoglobin A1c 03/12/2015 69570-DSGSYRG NAIL, 6 OR MORE 03/12/2015 53963-YXTVGFA NAIL, 6 OR MORE 06/21/2015 58676-ZCREASB NAIL, 6 OR MORE 09/24/2015 07837-GQBNUXI NAIL, 6 OR MORE 12/27/2015 21856-XLPKZCN NAIL, 6 OR MORE 04/03/2016 94620-BFHNEEZ NAIL, 6 OR MORE 07/07/2016 87069-XRZMVJA NAIL, 6 OR MORE 10/16/2016 28054-RPRBXHN NAIL, 6 OR MORE 01/22/2017 99211-MSLRUBE NAIL, 6 OR MORE 04/30/2017 59643-RBWRQRT NAIL, 6 OR MORE 07/30/2017 08757-MMWHXVL NAIL, 6 OR MORE 11/02/2017 29539-KEIBIZY NAIL, 6 OR MORE 02/25/2018 36994-TCNKLBO NAIL, 6 OR MORE 05/31/2018 63212-KVZERWP NAIL, 6 OR MORE 09/06/2018 02650-GTHPPZF NAIL, 6 OR MORE 11/25/2018 57204-AGFGBVU NAIL, 6 OR MORE 03/07/2019 81722-SNPMSAJ NAIL, 6 OR MORE 11/11/2010 96053-BSXVFCD NAIL, 6 OR MORE 02/03/2011 87066-SGQEMUM NAIL, 6 OR MORE 05/12/2011 09664-UMCKBFS NAIL, 6 OR MORE 08/04/2011 95429-VQDMCWV NAIL, 6 OR MORE 11/06/2011 92615-LGLRYSQ NAIL, 6 OR MORE 01/29/2012 73035-EUUILUK NAIL, 6 OR MORE 05/06/2012 06246-MZJVNZC NAIL, 6 OR MORE 07/29/2012 68886-KIWMBIM NAIL, 6 OR MORE 10/28/2012 44314-AVEBLBB NAIL, 6 OR MORE 01/31/2013 82286-DWHLKNR NAIL, 6 OR MORE 05/09/2013 17075-OLAPTYI NAIL, 6 OR MORE 08/15/2013 54611-WJYJWHI NAIL, 6 OR MORE 11/21/2013 91882-KGGWCBW NAIL, 6 OR MORE 02/27/2014 83342-RVWRWAT NAIL, 6 OR MORE 05/29/2014 09577-ZWGUTSI NAIL, 6 OR MORE 09/04/2014 72113-DLQWALA NAIL, 6 OR MORE 12/04/2014 36222-GWDXXXG NAIL, 6 OR MORE 11/21/2019 35812-CORVRBM NAIL, 6 OR MORE 02/27/2020 45907-FOTRDLT NAIL, 6 OR MORE 05/28/2020 38823-ENQNUMC NAIL, 6 OR MORE 09/06/2020 55162-GKZYSOW NAIL, 6 OR MORE 12/10/2020 18035-QFGAHSM NAIL, 6 OR MORE 04/29/2021 86040-AVGTRLM NAIL, 6 OR MORE 09/09/2021 49474-RSNDCVE NAIL, 6 OR MORE 12/16/2021 09599-KZPNUSM NAIL, 6 OR MORE 04/10/2022 27188-HIVRNII NAIL, 6 OR MORE 07/17/2022 67605-BBIHDEB NAIL, 6 OR MORE 10/23/2022 99365-JDSLITN NAIL, 6 OR MORE 02/02/2023 93776-DWRAWIY NAIL, 6 OR MORE 05/11/2023 84319-AKNDYFF NAIL, 6 OR MORE 08/10/2023 26346-IJIBYNP NAIL, 6 OR MORE 11/12/2023 21403-IZQVFDJ NAIL, 6 OR MORE 02/29/2024 43885-Zuukbnmp Plate 02/27/2020 60335-Lmnganmv Plate 02/02/2023 76372-Rcgiourp Plate 03/12/2015 04053 I&D ABSCESS- SIMPLE,SINGLE 012 16446-ZXKT SKIN LESIONS, OVER 4 03/12/19 16 79059-LCEN SKIN LESIONS, OVER 4 09/24/19 16 51356-BXNZ SKIN LESIONS, OVER 4 06/21/19 16 30142-XEOG SKIN LESIONS, OVER 4 01/23/20 17 43626-MTDY SKIN LESIONS, OVER 4 10/17/19 17 19417-BZLM SKIN LESIONS, OVER 4 04/03/19 17 57856-IKOP SKIN LESIONS, OVER 4 07/08/19 17 39063-CBXB SKIN LESIONS, OVER 4 12/27/19 16 22553-PGZC SKIN LESIONS, OVER 4 02/25/19 19 46509-LJRL SKIN LESIONS, OVER 4 11/03/19 18 08781-TPEK SKIN LESIONS, OVER 4 07/31/19 18 20571-URAO SKIN LESIONS, OVER 4 05/01/19 18 22625-BVEO SKIN LESIONS, OVER 4 12/05/19 15 70696-BDPM SKIN LESIONS, OVER 4 09/05/19 15 63837-XDME SKIN LESIONS, OVER 4 05/30/19 15 26312-YBSG SKIN LESIONS, OVER 4 02/27/19 15 30050-ZVRM SKIN LESIONS, OVER 4 11/22/19 14 00183-CYUA SKIN LESIONS, OVER 4 08/16/19 14 09161-NVFA SKIN LESIONS, OVER 4 05/10/19 14 66136-YIUT SKIN LESIONS, OVER 4 02/01/20 13 42730-JOFF SKIN LESIONS, 2 TO 4 10/29/19 13 29709-YUKN SKIN LESIONS, 2 TO 4 07/30/19 13 13609-RCVL SKIN LESIONS, 2 TO 4 05/07/19 13 43986-IOCN SKIN LESIONS, 2 TO 4 01/29/20 12 64403-SNXA SKIN LESIONS, 2 TO 4 11/06/19 12 16287-CNTD SKIN LESIONS, 2 TO 4 08/04/19 12 86356-KWSR SKIN LESIONS, 2 TO 4 05/12/19 12 61173-VVNJ SKIN LESIONS, 2 TO 4 03/07/19 20 35424-FAMZ SKIN LESIONS, 2 TO 4 11/26/19 19 25358-UIVK SKIN LESIONS, 2 TO 4 09/07/19 19 88890-RTOL SKIN LESIONS, 2 TO 4 06/01/19 19 12834-LSSM SKIN LESIONS, 2 TO 4 05/11/19 24 07285-VCKB SKIN LESIONS, 2 TO 4 11/12/19 24 51965-AIFV SKIN LESIONS, 2 TO 4 08/10/19 24 43048-PGKZ SKIN LESIONS, 2 TO 4 02/03/20 34178-WPFA SKIN LESIONS, 2 TO 4 10/24/19 00853-LZGP SKIN LESIONS, 2 TO 4 07/18/19 50429-HRKF SKIN LESIONS, 2 TO 4 04/10/19 70355-PWDX SKIN LESIONS, 2 TO 4 12/17/19 33853-PCZN SKIN LESIONS, 2 TO 4 09/10/19 03552-TLWF SKIN LESIONS, 2 TO 4 04/30/19 69305-ZAPK SKIN LESIONS, 2 TO 4 12/11/19 31444-MPOT SKIN LESIONS, 2 TO 4 09/07/19 65160-BISM SKIN LESIONS, 2 TO 4 05/29/19 98345-KJKU SKIN LESIONS, 2 TO 4 02/26/19 21575-WLGX SKIN LESIONS, 2 TO 4 11/21/19 73245-AAES SKIN LESIONS, 2 TO 4 02/28/19 Next Appt Details Provider Name:Riley Rodrigues , 05/30/2024 09:00:00 AM, [address] [place], [address], Insurance Providers Payer Name Payer Address Payer Phone Subscriber Number Group Number Insured Name Patient Relationship to Insured Coverage Start Date Coverage End Date Medicare National Govt [facility] [address] [place] [address] [id number] Jossie Parson Self - patient is the insured 1 [employer]) [address] [place] [address] [id number] Jossie Parson Self - patient is the insured Medical (General) History Medical History History ICD Code Cholesterol psoriasis osteoporosis cancer broken bones hypertension Diabetic type ll Surgical History Surgery Date(Month/Year) appendectomy brain surgery hip surgery hysterectomy back surgery 09/2019 Hospitalization History Reason Date(Month/Year) [facility]- rehab back sx 4 weeks [facility] for sliver on left leg stitches w ere done 2016 admitted to [facility] for a f all- DX- fracture back for 4 days then Kimber jacob 01/09/2016
--- OUTSIDE RECORDS SUMMARY | 2024-03-16 15:13 | XMS_ITS | Clinical Summary ---
Author Organization [facility] ity Address [address] [place] [address] Care Team Providers Care Attendant Child Activity Name Role Phone Nathan Nickerson MD Primary Care Provider [phone] Social History Tobacco Use Types Packs/Day Years [...] Documents on File Type Date Recorded Patient Courtroom Deputy Expl [facility] Health Care Decision (hx) 08/28/2019 AD BOOTH DIRECTIVE Health Care Decision (hx) 08/23/2019 AD BOOTH DIRECTIVE Care Teams Attendant Child Activity Relationship Specialty Start Date End Date Nathan Nickerson MD [address] [place] [address] PCP - General Internal Medicine 08/17/19
--- OUTSIDE RECORDS SUMMARY | 2024-03-16 15:13 | XMS_ITS ---
Author Organization [facility] Address [address] [place] [address] Care Team Providers Care Practicing Md Anesthesiologist Name Role Phone Nathan Nickerson MD Primary Care Provider Riley Otoole Unavailable [phone] Allergies Allergen (clinical drug ingredient) Drug/Non Drug [...] Ordered Date Performed Result Body Sit e 77221-HKGJFRY NAIL, 6 OR MORE 11/12/2023 N/A 78241-IZFV SKIN LESIONS, 2 TO 4 11/12/2023 N/A Encounters Encounter Location Date Provider Diagnosis [facility] [address] [address] 11/12/2023 Riley Rodrigues Type 2 diabetes mellitus with diabetic polyneuropathy E11.42 and Tinea unguium B35.1 Assessments Encounter Date Diagnosis (ICD Code) Assessment Notes Treatment Notes Treatment Clinical Notes Section Notes 11/12/2023 Type 2 diabetes mellitus with diabetic polyneuropathy (ICD-10 - E11.42) 11/12/2023 Tinea unguium (ICD-10 - B35.1) 11/12/2023 Other Plan Of Treatment Pending Test Test Name Order Date 74691-SQMGZBV NAIL, 6 OR MORE 11/12/2023 14140-FULL SKIN LESIONS, 2 TO 4 11/12/19 24 Next Appt Details Follow Up: prn, Reason: Provider Name:Riley Rodrigues , 05/30/2024 09:00:00 AM, [address] [place] [address], [phone], Procedure Notes * Category Sub-Category Detail Notes Debride Nail 6-10 Nail debridement Performance o f this nail treatment by a nonprofessional would put this patients foot and overall health at risk. Therefore, nail debridement was performed extensively to reduce/remove overall nail length, girth, thickness, subungual debris, and necrotic tissue, by manual and/or electrical means through the use of a nail nipper and/or dremel-type rubber roller grinder, to a more viable healthy nail plate or bed tissue 6-10. Silver nitrate used for any petechial bleeding as necessary. Definitive antifungal treatment options have been reviewed and discussed with the patient. The patient chooses, no pharmaceutical tx - 70374 Keratoma Treatment Parring or Cutting o f Benign Hyperkeratotic Lesion(s) (-56) 2-4 Lesions - The Benign hyperkeratotic lesions, as described above were pared, and/or cut utilizing a sterile 15 blade, tissue nippers, and/or dremel - 88542 Progress Notes * John PARSONOB:1945 (78 yo F)Acc No.[id number]:11/12/2023 Progress Note Patient:?Jossie Parson Provider:?Riley Rodrigues DPM :1945???Age:78 Y???Sex:Female D ate:11/12/2023 Address:[address] [place], [place] [address] Pcp:Nathan Nickersno MD Subjective: * Chief Complaints: * ???At [...] 09/2019 * Hospitalization/Major Diagno stic Procedure:?admitted to [facility] for a fall- DX- fracture back for 4 days then Kimber jacob 01/09/2016[facility] for [place]ver on left leg stitches were done [address] [place] [address]- rehab back sx 4 weeks 09/2019 * [...] use of a nail nipper and/or dremel-type rubber roller grinder, to a more viable healthy nail plate or bed tissue 6-10. Silver nitrate used for any petechial bleeding as necessary. Definitive antifungal treatment options have been reviewed and discussed with the patient. The patient chooses, no pharmaceutical tx - 28502.?Keratoma Treatment:?Parring or Cutting of Benign Hyperkeratotic Lesion(s)?(-56) 2-4 Lesions - The Benign hyperkeratotic lesions, as described above were pared, and/or cut utilizing a sterile 15 blade, tissue nippers, and/or dremel - 41568.? * Procedure Codes:?09662 DEBRI DE NAIL, 6 OR MORE, Modifiers: XS 86466 TRIM SKIN LESIONS, 2 TO 4, Modifiers: XS * Follow Up:?prn * Images: * Sign off status: Completed true * Provider:?Riley Rodrigues DPM Date:?2023 Generated for Lashay oshea/Nico/Grantitting on:?03/16/2024 03:13 PM EST History and Physical Notes * [...]
--- OUTSIDE RECORDS SUMMARY | 2024-03-16 15:13 | XMS_ITS ---
Author [facility] Address [address] [place] [address] Care Team Providers Care Turner And Former Automatic Name Role Phone Nathan Nickerson MD Primary Care Provider Riley Otoole Unavailable [phone] Allergies Allergen (clinical drug ingredient) Drug/Non Drug [...] Ordered Date Performed Result Body Sit e 01395-WDMHCGA NAIL, 6 OR MORE 02/29/2024 N/A 51714-NZTG SKIN LESIONS, 2 TO 4 02/29/2024 N/A Encounters Encounter Location Date Provider Diagnosis [facility] [address] [address] 02/29/2024 Riley Rodrigues Type 2 diabetes mellitus [...] INSTRUCTIONS.pdf) Pending Test Test Name Order Date 01690-VVBKZNP NAIL, 6 OR MORE 02/29/2024 80329-QTNC SKIN LESIONS, 2 TO 4 02/28/19 25 Next Appt Details Follow Up: prn, Reason: Provider Name:Riley Rodrigues , 05/30/2024 09:00:00 AM, [address] [place] [address], [phone], Procedure Notes * Category Sub-Category Detail Notes [...] use of a nail nipper and/or dremel-type tool grinder, to a more viable healthy nail [...] to maintain effectiveness in symptomatic relief - 41677 Keratoma Treatment Parring or Cutting o f [...] instrumentation by the physician of record - 61799 Progress Notes * Lizbeth PARSONMervatOB:1945 (78 yo F)Acc No.[id number]:02/29/2024 Progress Note Patient:?Jossie PARSON Provider:?Riley Rodrigues DPM :1945???Age:78 Y???Sex:Female D ate:02/29/2024 Address:[address] [place] [address], [place], [id number] Pcp:Nathan Nickerson MD Subjective: * Chief Complaints: [...] 09/2019 * Hospitalization/Major Diagno stic Procedure:?admitted to [facility] for a fall- DX- fracture back for 4 days then Kimber jacob 01/09/2016[facility] for sliver on left leg stitches were done [address] [place] [address]- rehab back sx 4 weeks 09/2019 * [...] use of a nail nipper and/or dremel-type tool grinder, to a more viable healthy nail [...] to maintain effectiveness in symptomatic relief - 61561.?Keratoma Treatment:?Parring or Cutting of Benign Hyperkeratotic Lesion(s)?(-56) [...] instrumentation by the physician of record - 51091.? * Procedure Codes:?34466 DEBRI DE NAIL, 6 OR MORE, Modifiers: XS 66411 TRIM SKIN LESIONS, 2 TO 4, Modifiers: [...] Rodrigues DPM Date:?2024 Generated for Lashay oshea/Nico/Lisa on:?03/16/2024 03:12 PM EST History and Physical [...]
== END 2024-03-16 11:21 | disposition home or self-care (01) ==
LOC: HO.10HDL 11:20
PROVIDERS: Visit Provider Internal Medicine Endocrinology, Diabetes & Metabolism
DX: M81.0 Age-related osteoporosis without current pathological fracture (principal); E83.52 Hypercalcemia
CPT/HCPCS: 36415; 82040; 82310

== ENCOUNTER 2024-04-05 03:09 | Emergency (ER) | payer MEDICARE, OTHER, SELFPAY ==
[2024-04-05 03:36] VITALS: BP 196/89; BP 240/168; PULSE 102; PULSE 97; RESP 16; TEMP 36.4; O2SAT 96; BMI 25.8
[2024-04-05 03:41] VITALS: BP 196/89; PULSE 97; RESP 16; TEMP 36.4; O2SAT 96
--- OUTSIDE RECORDS SUMMARY | 2024-04-05 03:59 | XMS_ITS | Clinical Summary ---
Author Organization [facility] ity Address [address] [place] [address] Care Team Providers Care Rivet Heater Name Role Phone Nathan Nickerson MD Primary Care Provider [phone] Social History Tobacco Use Types Packs/Day Years Used Date Smoking Tobacco: Never Assessed Comments Unknown Sex and Gender Information Value Date Recorded Sex Assigned at Not on file Legal Sex Female 6:33 PM EST Gender Identity Not on file Sexual Orientation Not on file Plan of Treatment Health Maintenance Due Date Last Done Comments DTaP,Tdap,and Td Vaccines (1 - Tdap) 1964 Pneumococcal Vaccine: 50+ Ye ars (1 of 1 - PCV) 07/02/1995 Zoster Vaccines (1 of 2) 07/02/1995 RSV Immunization Patients 60 + Years Old (1 - 1-dose 75+ series) 2020 COVID-19 Vaccine (2023-2 5 season) 2023 Influenza Vaccine (#1) 2023 [...] patient's age to complete this topic Meningococcal B Vacine Aged Out No lo nger eligible based on patient's age to complete this topic RSV Immunization Patients Un ludivina 20 months Aged Out No longer eligible b ased on patient's age to complete this topic Varicella Vaccines Aged Out No longer eligible based on patient's age to complete this topic Advance Directives Documents on File Type Date Recorded Patient Quality Controller Expl anation Health Care Decision (hx) 08/28/2019 AD BOOTH DIRECTIVE Health Care Decision (hx) 08/23/2019 AD BOOTH DIRECTIVE Care Teams Rivet Heater Relationship Specialty Start Date End Date Nathan Nickerson MD [address] [place] [address] PCP - General Internal Medicine 08/17/19
--- OUTSIDE RECORDS SUMMARY | 2024-04-05 03:59 | XMS_ITS | Patient Health Record ---
Author Organization [facility] Address [address] [place] [address] Care Team Providers Care Yard Specialist Name Role Phone Nathan Nickerson MD Primary Care Provider Evaristo Olivas [phone] ALLERGIES Allergen (clinical drug ingredient) Drug/Non Drug [...] malignant neoplasm of colon (Z12.11) Active confirmed 635476405 Problem Family history of colon cancer (Z80.0) Active confirmed 968830697 Problem Preprocedural examination (Z01.818) Active confirmed 756778212908491 Problem Long-term use of high-risk medication (Z79.899) Active confirmed 880920174 Problem Heme + stool (R19.5) Active confirmed Abnormal feces (137468609) Problem Diverticulosis of colon (K57.30) Active confirmed Diverticulosi s of colon (217529794) PLAN OF TREATMENT Pending Test Test Name Order Date Pathology 11/03/2021 Future Test Test Name Order Date COLONOSCOPY 03/17/2018 COLONOSCOPY 10/09/2021 Insurance Providers Payer Name Payer Address Payer Phone Subscriber Number Group Number Insured Name Patient Relationship to Insured Coverage Start Date Coverage End Date MEDICARE OF [place] [address] [place] [address] [id number] BIPIN SLATER Self - patient is the insured [facility] [employer] [address] [place] [address] [id number] BIPIN SLATER Self - patient is the insured MEDICAL (GENERAL) HISTORY Medical History History ICD Code NIDDM Denies NC,CVA,Lung disease,renal disease Neg. 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
--- OUTSIDE RECORDS SUMMARY | 2024-04-05 03:59 | XMS_ITS ---
Author Organization [facility] Address [address] [place] [address] Care Team Providers Care Staffing Operations Manager Name Role Phone Nathan Nickerson MD Primary Care Provider Riley Otoole Unavailable [phone] Allergies Allergen (clinical drug ingredient) Drug/Non Drug [...] Ordered Date Performed Result Body Sit e 31732-HVDPLHW NAIL, 6 OR MORE 02/29/2024 N/A 73670-DCIF SKIN LESIONS, 2 TO 4 02/29/2024 N/A Encounters Encounter Location Date Provider Diagnosis [facility] [address] [address] 02/29/2024 Riley Rodrigues Type 2 diabetes mellitus [...] INSTRUCTIONS.pdf) Pending Test Test Name Order Date 41589-DDFVYEH NAIL, 6 OR MORE 02/29/2024 60692-TGZU SKIN LESIONS, 2 TO 4 02/28/19 25 Next Appt Details Follow Up: prn, Reason: Provider Name:Riley Rodrigues , 05/30/2024 09:00:00 AM, [address] [place] [address], [phone], Procedure Notes * Category Sub-Category Detail Notes [...] use of a nail nipper and/or dremel-type metal grinder, to a more viable healthy nail [...] to maintain effectiveness in symptomatic relief - 96908 Keratoma Treatment Parring or Cutting o f [...] instrumentation by the physician of record - 49083 Progress Notes * Lizbeth PARSONMervatOB:1945 (78 yo F)Acc No.[id number]:02/29/2024 Progress Note Patient:?Jossie PARSON Provider:?Riley Rodrigues DPM :1945???Age:78 Y???Sex:Female D ate:02/29/2024 Address:[address] [place] [address], [place], [id number] Pcp:Nathan Nickerson MD Subjective: * Chief Complaints: [...] 09/2019 * Hospitalization/Major Diagno stic Procedure:?admitted to [facility] for a fall- DX- fracture back for 4 days then Kimber jacob 01/09/2016[facility] for sliver on left leg stitches were done [address] [place] [address]- rehab back sx 4 weeks 09/2019 * [...] use of a nail nipper and/or dremel-type metal grinder, to a more viable healthy nail [...] to maintain effectiveness in symptomatic relief - 33419.?Keratoma Treatment:?Parring or Cutting of Benign Hyperkeratotic Lesion(s)?(-56) [...] instrumentation by the physician of record - 37588.? * Procedure Codes:?31656 DEBRI DE NAIL, 6 OR MORE, Modifiers: XS 70945 TRIM SKIN LESIONS, 2 TO 4, Modifiers: [...] Rodrigues DPM Date:?2024 Generated for Lashay oshea/Nico/Lisa on:?04/05/2024 03:59 AM EST History and Physical Notes * HPI [...]
--- NOTE | 2024-04-05 04:00 | ED_ITS ---
History of Present Illness General Chief Complaint: Epistaxis Stated Complaint: bloody nose Time Seen by Provider: 04/05/24 04:00 Source: patient, family ( Spouse) and EMS Mode of arrival: EMS Limitations: no limitations History of Present Illness HPI Narrative: 78-year-old female came in by ambulance for evaluation of left nostril bleed started at 02:00, no nasal trauma or injury, not taking anticoagulation, no headache, no blurry vision. similar symptoms about week ago that spontaneously stopped bleeding. Related Data Home Medications ?Medication ?Instructions ?Recorded ?Confirmed ascorbate calcium (vitamin C) 500 1,000 mg PO BID 03/06/20 10/29/21 mg tablet blood sugar diagnostic #10 ea 03/06/20 09/02/20 buspirone 5 mg tablet 5 mg PO DAILY 03/06/20 11/03/21 carvedilol 12.5 mg tablet 12.5 mg PO BID 03/06/20 10/29/21 metformin 500 mg tablet,extended 500 mg PO DAILY 03/06/20 10/29/21 release 24 hr nystatin 100,000 unit/gram topical 1 appl topical QID 03/06/20 10/29/21 powder simvastatin 20 mg tablet 20 mg PO BEDTIME 03/06/20 10/29/21 lisinopril 5 mg tablet 5 mg PO DAILY 09/02/20 10/29/21 oxybutynin chloride 5 mg tablet 5 mg PO BEDTIME 09/02/20 10/29/21 sitagliptin phosphate 25 mg tablet 25 mg PO DAILY 07/02/21 10/29/21 (Januvia) ciclopirox 0.77 % topical cream appl topical BID 06/23/22 mupirocin 2 % topical ointment topical BID 06/23/22 triamcinolone acetonide 0.025 % appl topical BID PRN 06/23/22 topical cream cranberry 500 mg capsule 500 mg PO BID 03/07/24 Previous Rx's ?Medication ?Instructions ?Recorded cholecalciferol (vitamin D3) 50 100 mcg (2 x 50 mcg (2,000 unit)) 09/02/20 mcg (2,000 unit) capsule PO DAILY 30 days #60 caps denosumab 60 mg/mL subcutaneous 60 mg subcut [id number] #1 mL 07/20/23 syringe (ProlBunkr) Allergies Allergy/AdvReac Type Severity Reaction Status Date / Time Penicillins [PENICILLINS] Allergy Unknown Swelling Verified 04/05/24 03:39 phenytoin [From DILANTIN] Allergy Unknown Hives Verified 04/05/24 03:39 Review of Systems 2 Review of Systems: All other systems are reviewed and are negative Constitutional: Reports as per HPI and Reports no additional constitutional complaints Eyes: Reports as per HPI and Reports no additional eye complaints Reports system reviewed and no additional complaints, except as documented Cardiovascular: Reports as per HPI and Reports no additional cardiovascular complaints Respiratory: Reports as per HPI and Reports no additional respiratory complaints Gastrointestinal: Reports as per HPI and Reports no additional gastrointestinal complaints Genitourinary: Reports no additional female genitourinary complaints Musculoskeletal: Reports no additional musculoskeletal complaints Skin/Breast: Reports system reviewed and no additional complaints, except as docu Psychiatric: Reports no additional psychiatric complaints Endocrine: Reports no additional endocrine complaints Hematologic/Lymphatic: Reports no additional hematologic/lymphatic complaints Allergic/Immunologic: Reports no additional allergic/immunologic complaints Reports system reviewed and no additional complaints, except as documented and Reports Abnormal speech present [facility] Past Medical History Medical History Hypercalcemia History of vertebral fracture Hx of fall Anxiety and depression Hyperlipidemia HTN (hypertension) 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 Mother No problems noted. Social History Social History Patient Tobacco Use Status: Former Tobacco user Tobacco use type: Cigarette Cigarettes Per Day: 20 Years Smoked: 12 Smoked in Last 30 Days: No Advance Directives: No Advance Directives Information Provided: Yes Physical Exam 2 Vital Signs: Vital Signs: Last Vital Signs Temp 97.9 F 04/05/24 06:10 Pulse 93 04/05/24 06:10 Resp 16 04/05/24 06:10 BP 160/90 H 04/05/24 06:11 Pulse Ox 96 04/05/24 06:10 O2 Del Method Room Air 04/05/24 06:10 BMI result Body Mass Index 25.8 Vital signs have been reviewed and appear to be correct. Blood pressure elevated. Heart rate normal. Respiratory rate normal. Temperature normal. Oxygen saturation normal. Appearance: Alert. Oriented X3. No acute distress. Head: Normal external exam. Normocephalic. Atraumatic. No Clancy signs noted. No raccoon eyes noted Eyes: PERRLA. EOMI. Conjunctiva and sclera normal. Eyelids normal. ENT: TM's Normal. Pharynx normal. Uvula midline. Moist mucous membranes. No trismus noted. No drooling noted. No muffled voice noted. Left nostril bleed, uncertain location of the bleeding, nasal pressure was applied. Neck: Normal inspection. Neck supple. FROM. No adenopathy. Thyroid Normal. No meningeal signs. No neck mass noted. CVS: Normal heart rate and rhythm. Heart sound normal. No murmurs noted. Pulses normal throughout. Respiratory: No respiratory distress. Painless inspiration. Breath sounds normal. No wheezes/rales/rhonchi noted. Chest nontender. No accessory muscle usage noted or decreased air movement noted. Abdomen: Soft and nontender. Bowel sounds normal in all 4 quadrants. No distention noted. No organomegaly noted. No visible injury noted. Back: No CVA tenderness. Full range of motion noted. Skin: Skin warm and dry. Normal skin color. Normal skin turgor. No rashes/lesions/lacerations noted. Extremities: No lower extremity edema. Extremities exhibit normal range of motion. Extremities nontender. Neuro: Oriented X 3. Cranial nerve exam: II-XII are grossly intact No motor deficit. No sensory deficit. Reflexes normal. Course Reevaluation(s) Reevaluation #1: nasal pressure was applied to the patient, no active bleeding now, patient is hemodynamically stable. labs are unremarkable, blood pressure has improved after amlodipine given in the emergency department. Time: 06:30 Medications Administered Discontinued Medications Generic Name Dose Route Start Last Admin Trade Name Freq PRN Reason Stop Dose Admin Amlodipine Besylate 5 mg 04/05/24 04:02 04/05/24 04:25 Amlodipine Besylate 5 Mg Tablet PO 04/05/24 04:03 5 mg ONCE ONE Administration Protocol Medical Decision Making Differential Diagnosis Differential Diagnoses: The differential diagnosis associated with the presentation includes ( Coagulopathy, thrombocytopenia, severe anemia, anterior epistaxis, posterior epistaxis.) Admission/Observation Consideration of admission/observation: Escalation of care including admission/observation considered Lab Data MDM Lab Attestation statement: I reviewed the patient's lab results. 04/05/24 04:09 04/05/24 04:09 Labs: Lab Results 04/05/24 Range/Units 04:09 WBC 10.7 (4.8-10.8) X10*3/uL RBC 4.35 (4.20-5.50) X10*6/uL Hgb 13.4 (12.0-16.0) g/dl Hct 39.4 (37.0-47.0) % MCV 90.6 (80.0-98.0) fL MCH 30.8 (27.0-33.0) pg MCHC 34.0 (31.0-35.0) g/dl RDW 12.7 (11.0-16.0) % Plt Count 159 L D (160-400) X10*3/uL MPV 10.6 (9.4-12.3) fL Immature Gran % (Auto) 0.4 (0.0-0.4) % Neut % (Auto) 72.0 (45-73) % Lymph % (Auto) 17.2 L (20-40) % Kingfisher % (Auto) 6.2 (2-11) % Eos % (Auto) 3.2 (0-4) % Baso % (Auto) 1.0 (0-2) % Lymph # (Auto) 1.8 (1.2-4.9) X10*3/uL Kingfisher # (Auto) 0.7 (0.1-1.2) X10*3/uL Eos # (Auto) 0.3 (0.0-0.4) X10*3/uL Baso # (Auto) 0.1 (0.0-0.2) X10*3/uL Abs Immat Gran (auto) 0.04 H (0.00-0.03) X10*3/uL Absolute Neuts (auto) 7.7 (2.0-8.3) x10*3/uL Absolute Nucleated RBC 0.000 (0.0-0.012) X10*3/uL Nucleated RBC % (auto) 0.0 (0.0-0.2) /100WBC PT 11.6 (10.9-12.4) SEC INR 1.0 (0.9-1.1) Sodium 138 (135-145) mmol/L Potassium 4.5 (3.3-5.1) mmol/L Chloride 105 (96-108) mmol/L Carbon Dioxide 24 (22-29) mmol/L Anion Gap 14 (12-20) BUN 16 (9-16) mg/dL Creatinine 0.80 (0.5-1.4) mg/dL Estim Creat Clear Calc 57.0 Estimated GFR > 60 Random Glucose 248 H (60-115) mg/dL Calcium 10.0 (8.4-10.2) mg/dL Discharge Plan Discharge Clinical Impression: Epistaxis Patient Disposition: Home, Self-Care Instructions: Nosebleed (ED) Prescriptions: No Action Prolia 60 mg/mL syringe 60 mg subcut [id number] Qty: 1 2RF Rx Instructions: to be administered in office carvedilol 12.5 mg tablet 12.5 mg PO BID buspirone 5 mg tablet 5 mg PO DAILY metformin 500 mg tablet extended release 24 hr 500 mg PO DAILY simvastatin 20 mg tablet 20 mg PO BEDTIME (DME) OneTouch Verio test strips Strip See Rx Instructions Not Applicable BID Qty: 10 Rx Instructions: As directed nystatin 100,000 unit/gram powder 1 appl topical QID ascorbate calcium (vitamin C) 500 mg tablet 1,000 mg PO BID lisinopril 5 mg tablet 5 mg PO DAILY oxybutynin chloride 5 mg tablet 5 mg PO BEDTIME cholecalciferol (vitamin D3) 50 mcg (2,000 unit) capsule 100 mcg PO DAILY 30 Days Qty: 60 6RF Januvia 25 mg tablet 25 mg PO DAILY ciclopirox 0.77 % cream topical BID triamcinolone acetonide 0.025 % cream topical BID PRN mupirocin 2 % ointment topical BID cranberry 500 mg capsule 500 mg PO BID Rx Instructions: administer with meals Referrals: Nathan Nickerson MD [Primary Care Provider] - Print Language: Belarusian
--- OUTSIDE RECORDS SUMMARY | 2024-04-05 04:00 | XMS_ITS ---
[facility] Address [address] [place] [address] Care Team Providers Care [employer] Facer Name Role Phone Nathan Nickerson MD Primary Care Provider Riley Otoole Unavailable [phone] Allergies Allergen (clinical drug ingredient) Drug/Non Drug [...] Ordered Date Performed Result Body Sit e 10049-WLRATPN NAIL, 6 OR MORE 11/12/2023 N/A 61075-TCXI SKIN LESIONS, 2 TO 4 11/12/2023 N/A Encounters Encounter Location Date Provider Diagnosis [facility] [address] [address] 11/12/2023 Riley Rodrigues Type 2 diabetes mellitus with diabetic polyneuropathy E11.42 and Tinea unguium B35.1 Assessments Encounter Date Diagnosis (ICD Code) Assessment Notes Treatment Notes Treatment Clinical Notes Section Notes 11/12/2023 Type 2 diabetes mellitus with diabetic polyneuropathy (ICD-10 - E11.42) 11/12/2023 Tinea unguium (ICD-10 - B35.1) 11/12/2023 Other Plan Of Treatment Pending Test Test Name Order Date 54295-TQXXUXU NAIL, 6 OR MORE 11/12/2023 98044-SRUE SKIN LESIONS, 2 TO 4 11/12/19 24 Next Appt Details Follow Up: prn, Reason: Provider Name:Riley Rodrigues , 05/30/2024 09:00:00 AM, [address] [place] [address], [phone], Procedure Notes * Category Sub-Category Detail Notes Debride Nail 6-10 Nail debridement Performance o f this nail treatment by a nonprofessional would put this patients foot and overall health at risk. Therefore, nail debridement was performed extensively to reduce/remove overall nail length, girth, thickness, subungual debris, and necrotic tissue, by manual and/or electrical means through the use of a nail nipper and/or dremel-type contact lens curve grinder, to a more viable healthy nail plate or bed tissue 6-10. Silver nitrate used for any petechial bleeding as necessary. Definitive antifungal treatment options have been reviewed and discussed with the patient. The patient chooses, no pharmaceutical tx - 91052 Keratoma Treatment Parring or Cutting o f Benign Hyperkeratotic Lesion(s) (-56) 2-4 Lesions - The Benign hyperkeratotic lesions, as described above were pared, and/or cut utilizing a sterile 15 blade, tissue nippers, and/or dremel - 89626 Progress Notes * John PARSONOB:1945 (78 yo F)Acc No.[id number]:11/12/2023 Progress Note Patient:?Jossie Parson Provider:?Riley Rodrigues DPM :1945???Age:78 Y???Sex:Female D ate:11/12/2023 Address:[address] [place], [place] [id number] Pcp:Nathan Nickerson MD Subjective: * Chief Complaints: [...] 09/2019 * Hospitalization/Major Diagno stic Procedure:?admitted to [facility] for a fall- DX- fracture back for 4 days then Kimber jacob 01/09/2016[facility] [place] left leg stitches were done [address] [place] [address]- rehab back sx 4 weeks 09/2019 * [...] use of a nail nipper and/or dremel-type contact lens curve grinder, to a more viable healthy nail plate or bed tissue 6-10. Silver nitrate used for any petechial bleeding as necessary. Definitive antifungal treatment options have been reviewed and discussed with the patient. The patient chooses, no pharmaceutical tx - 10507.?Keratoma Treatment:?Parring or Cutting of Benign Hyperkeratotic Lesion(s)?(-56) 2-4 Lesions - The Benign hyperkeratotic lesions, as described above were pared, and/or cut utilizing a sterile 15 blade, tissue nippers, and/or dremel - 57549.? * Procedure Codes:?07143 DEBRI DE NAIL, 6 OR MORE, Modifiers: XS 13546 TRIM SKIN LESIONS, 2 TO 4, Modifiers: XS * Follow Up:?prn * Images: * Sign off status: Completed true * Provider:?Riley Rodrigues DPM Date:?2023 Generated for Lashay oshea/Nico/Grantitting on:?04/05/2024 04:00 AM EST History and Physical Notes * HPI (History of Present Illness) Category Sub-Category Detail Notes Category Not es At Risk footcare Pt States Last PCP Visit: Date: Examination Category Sub-Category Detail Notes Category Not [...]
--- OUTSIDE RECORDS SUMMARY | 2024-04-05 04:00 | XMS_ITS | Patient Health Record ---
Author Organization [facility] Address [address] [place] [address] Care Team Providers Care In Tube Conversion Technician Name Role Phone Nathan Nickerson MD Primary Care Provider Riley Otoole Unavailable [phone] Allergies Allergen (clinical drug ingredient) Drug/Non Drug [...] Problem Acquired hammer toe of right foot (0607428375904801 ) Other hammer toe(s) (acquired), right foot (M20.41) Active confirmed Problem Acquired hammer toe of left foot ([id number] ) Other hammer toe(s) (acquired), left foot (M20.42) Active confirmed Problem Polyneuropathy due to type 2 diabetes mellitus (071416491) Type 2 diabetes mellitus with diabetic polyneuropathy (E11.42) Active confirmed Vital Signs Blood pressure diastolic 70 mm Hg 02/29/2024 Height 5 ft 7 in in 02/29/2024 Blood pressure systolic 120 mm Hg 02/29/2024 Weight 160 lbs 02/29/2024 BMI 25.06 kg/m2 02/29/2024 Procedures Procedure Date Ordered Date Performed Result Body Sit e 73318-HSMZVGU NAIL, 6 OR MORE 05/11/2023 N/A 08487-ENOU SKIN LESIONS, 2 TO 4 05/11/2023 N/A 87492-CMPOIAQ NAIL, 6 OR MORE 08/10/2023 N/A 41935-JMUL SKIN LESIONS, 2 TO 4 08/10/2023 N/A 64913-GSNHXNO NAIL, 6 OR MORE 11/12/2023 N/A 29306-EQLR SKIN LESIONS, 2 TO 4 11/12/2023 N/A 49174-AJBXYRM NAIL, 6 OR MORE 02/29/2024 N/A 13274-EQAC SKIN LESIONS, 2 TO 4 02/29/2024 N/A Encounters Encounter Location Date Provider Diagnosis [address] [address] 05/11/2023 Riley Ravi Type 2 diabetes mellitus with diabetic polyneuropathy E11.42 ; Tinea unguium B35.1 ; Other hammer toe(s) (acquired), right foot M20.41 and Other hammer toe(s) (acquired), left foot M20.[address] [address] 08/10/2023 Riley Ravi Type 2 diabetes mellitus with diabetic polyneuropathy E11.42 and Tinea unguium B35.[address] [address] 11/12/2023 Riley Ravi Type 2 diabetes mellitus with diabetic polyneuropathy E11.42 and Tinea unguium B35.[address] [address] 02/29/2024 Riley Ravi Type 2 diabetes mellitus with diabetic polyneuropathy E11.42 ; Tinea unguium B35.1 ; Other hammer toe(s) (acquired), right foot M20.41 and Other hammer toe(s) (acquired), left foot M20.42 Assessments Encounter Date Diagnosis (ICD Code) Assessment Notes Treatment Notes Treatment Clinical Notes Section Notes 05/11/2023 Type 2 diabetes mellitus with diabetic polyneuropathy (ICD-10 - E11.42) 05/11/2023 Tinea unguium (ICD-10 - B35.1) 02/29/2024 Type 2 diabetes mellitus with diabetic polyneuropathy (ICD-10 - E11.42) 02/29/2024 Tinea unguium (ICD-10 - B35.1) 11/12/2023 Type 2 diabetes mellitus with diabetic polyneuropathy (ICD-10 - E11.42) 11/12/2023 Tinea unguium (ICD-10 - B35.1) 08/10/2023 Type 2 diabetes mellitus with diabetic polyneuropathy (ICD-10 - E11.42) 08/10/2023 Tinea unguium (ICD-10 - B35.1) 02/29/2024 Other [...] Test Name Order Date Hemoglobin A1c 03/12/2015 15245-WILACTP NAIL, 6 OR MORE 03/12/2015 95953-LACJXMG NAIL, 6 OR MORE 07/07/2016 42382-QKHYWHY NAIL, 6 OR MORE 11/02/2017 04956-HNBFOZO NAIL, 6 OR MORE 11/21/2019 60934-GOUSNSY NAIL, 6 OR MORE 12/10/2020 99461-NRRYFIT NAIL, 6 OR MORE 04/29/2021 86211-SVIVTYS NAIL, 6 OR MORE 09/09/2021 08634-DYXYSFH NAIL, 6 OR MORE 12/16/2021 87906-TTTYRPC NAIL, 6 OR MORE 07/17/2022 20324-QIIZHBH NAIL, 6 OR MORE 10/23/2022 70767-FJXILSD NAIL, 6 OR MORE 05/11/2023 21547-KEDCUKB NAIL, 6 OR MORE 11/12/2023 41357-NMBJUWH NAIL, 6 OR MORE 02/29/2024 26540-UDUSJBC NAIL, 6 OR MORE 08/10/2023 94254-EAYRZME NAIL, 6 OR MORE 02/02/2023 53826-LJMHYUJ NAIL, 6 OR MORE 04/10/2022 42363-RCFLXWE NAIL, 6 OR MORE 09/06/2020 99513-ABRLJIM NAIL, 6 OR MORE 05/28/2020 78243-DKYTGUI NAIL, 6 OR MORE 02/27/2020 77372-CHGCUXN NAIL, 6 OR MORE 03/07/2019 13369-AMZJRHL NAIL, 6 OR MORE 11/25/2018 81224-BPINQJJ NAIL, 6 OR MORE 09/06/2018 33070-SXQEDKV NAIL, 6 OR MORE 05/31/2018 25421-CGEASQP NAIL, 6 OR MORE 02/25/2018 09447-KKPUHCX NAIL, 6 OR MORE 07/30/2017 03997-MFRLDAR NAIL, 6 OR MORE 04/30/2017 48418-XSUANIX NAIL, 6 OR MORE 01/22/2017 29205-TQWZEBD NAIL, 6 OR MORE 10/16/2016 85430-RTOLZOI NAIL, 6 OR MORE 04/03/2016 36257-ACUSNAG NAIL, 6 OR MORE 12/27/2015 28481-XIFIJCF NAIL, 6 OR MORE 09/24/2015 78986-LOVBDSE NAIL, 6 OR MORE 06/21/2015 82160-QKFCNED NAIL, 6 OR MORE 12/04/2014 68375-ZRXYPUT NAIL, 6 OR MORE 11/21/2013 79437-WWBBQEI NAIL, 6 OR MORE 05/12/2011 21838-QHVLTHH NAIL, 6 OR MORE 11/11/2010 50277-TFXJONS NAIL, 6 OR MORE 09/04/2014 28028-AIRTYKJ NAIL, 6 OR MORE 05/29/2014 24189-LVEZYPD NAIL, 6 OR MORE 02/27/2014 94340-EBWDVSN NAIL, 6 OR MORE 07/29/2012 71450-TCMZIRC NAIL, 6 OR MORE 05/06/2012 15275-DPSJVHS NAIL, 6 OR MORE 01/29/2012 05927-QEVRILU NAIL, 6 OR MORE 11/06/2011 54987-VFHMLHG NAIL, 6 OR MORE 08/04/2011 64974-TQFPJLU NAIL, 6 OR MORE 02/03/2011 28612-VVNOXRR NAIL, 6 OR MORE 08/15/2013 20287-BTXFQHL NAIL, 6 OR MORE 05/09/2013 46441-WTVGJEZ NAIL, 6 OR MORE 01/31/2013 26324-ZNCMUXX NAIL, 6 OR MORE 10/28/2012 29052-Scclzdwl Plate 02/27/2020 51107-Zqhtpfcf Plate 03/12/2015 04622-Pwulpjfl Plate 02/02/2023 70155 I&D ABSCESS- SIMPLE,SINGLE 012 42842-DWVI SKIN LESIONS, OVER 4 02/01/20 13 96633-FZEI SKIN LESIONS, OVER 4 05/10/19 14 55836-ZPCF SKIN LESIONS, OVER 4 08/16/19 14 05869-PAEI SKIN LESIONS, OVER 4 02/27/19 15 30653-YMPH SKIN LESIONS, OVER 4 05/30/19 15 00772-GSXX SKIN LESIONS, OVER 4 09/05/19 15 02806-OYRA SKIN LESIONS, OVER 4 11/22/19 14 35136-IJAN SKIN LESIONS, OVER 4 12/05/19 15 08206-NOWD SKIN LESIONS, OVER 4 06/21/19 16 96192-LFXU SKIN LESIONS, OVER 4 11/03/19 18 25727-EFNN SKIN LESIONS, OVER 4 07/08/19 17 62414-CISG SKIN LESIONS, OVER 4 03/12/19 16 78770-EJOI SKIN LESIONS, OVER 4 02/25/19 19 15714-DBDR SKIN LESIONS, OVER 4 07/31/19 18 67389-XELM SKIN LESIONS, OVER 4 01/23/20 17 32559-VYNS SKIN LESIONS, OVER 4 05/01/19 18 05068-KUPN SKIN LESIONS, OVER 4 09/24/19 16 74105-UAOV SKIN LESIONS, OVER 4 12/27/19 16 13654-QDFM SKIN LESIONS, OVER 4 04/03/19 17 21847-WPUS SKIN LESIONS, OVER 4 10/17/19 17 97090-TGSQ SKIN LESIONS, 2 TO 4 06/01/19 19 27536-RMEN SKIN LESIONS, 2 TO 4 09/07/19 19 58922-WKKY SKIN LESIONS, 2 TO 4 11/26/19 19 74672-EMOY SKIN LESIONS, 2 TO 4 03/07/19 20 42841-PDUS SKIN LESIONS, 2 TO 4 02/26/19 21 00954-QRMF SKIN LESIONS, 2 TO 4 05/29/19 21 55826-SBDZ SKIN LESIONS, 2 TO 4 09/07/19 21 94124-JVZM SKIN LESIONS, 2 TO 4 04/10/19 23 88033-PSKQ SKIN LESIONS, 2 TO 4 11/21/19 20 47767-PBLF SKIN LESIONS, 2 TO 4 12/17/19 22 62948-JWHU SKIN LESIONS, 2 TO 4 09/10/19 22 78405-BQWZ SKIN LESIONS, 2 TO 4 04/30/19 22 43257-XNLA SKIN LESIONS, 2 TO 4 12/11/19 21 82331-NFXK SKIN LESIONS, 2 TO 4 02/03/20 23 30850-ZMLT SKIN LESIONS, 2 TO 4 08/10/19 24 62065-KFIV SKIN LESIONS, 2 TO 4 02/28/19 25 44760-CLXP SKIN LESIONS, 2 TO 4 11/12/19 24 64928-PAMU SKIN LESIONS, 2 TO 4 05/11/19 24 20533-WEVX SKIN LESIONS, 2 TO 4 10/24/19 23 29174-EBZN SKIN LESIONS, 2 TO 4 07/18/19 23 36880-FJXY SKIN LESIONS, 2 TO 4 05/12/19 12 78656-OPXY SKIN LESIONS, 2 TO 4 07/30/19 13 94215-JLTF SKIN LESIONS, 2 TO 4 10/29/19 13 33429-DEGM SKIN LESIONS, 2 TO 4 08/04/19 12 16531-MYNS SKIN LESIONS, 2 TO 4 11/06/19 12 09830-LXAP SKIN LESIONS, 2 TO 4 01/29/20 12 93263-DNGH SKIN LESIONS, 2 TO 4 05/07/19 13 Next Appt Details Provider Name:Riley Rodrigues , 05/30/2024 09:00:00 AM, [address] [place], [address], Insurance Providers Payer Name Payer Address Payer Phone Subscriber Number Group Number Insured Name Patient Relationship to Insured Coverage Start Date Coverage End Date Medicare National Govt [facility] [address] [facility] [place] [address] [id number] Jossie Parson Self - patient is the insured [employer]) [address] [place] [address] [id number] Jossie Parson Self - patient is the insured Medical (General) History Medical History History ICD Code Cholesterol psoriasis osteoporosis cancer broken bones hypertension Diabetic type ll Surgical History Surgery Date(Month/Year) appendectomy brain surgery hip surgery hysterectomy back surgery 09/2019 Hospitalization History Reason Date(Month/Year) [facility]- rehab back sx 4 weeks [facility] for sliver on left leg stitches w ere done 2016 admitted to [facility] for a f all- DX- fracture back for 4 days then Kimber jacob 01/09/2016
[2024-04-05 04:15] LABS: MANUAL DIFF FLAG NO
[2024-04-05 04:16] LABS: Basophils Absolute Auto 0.1 X10*3/uL (0.0-0.2); Eosinophils Absolute Auto 0.3 X10*3/uL (0.0-0.4); Eosinophils Percent Auto 3.2 % (0-4); Hematocrit 39.4 % (37.0-47.0); Hemoglobin 13.4 g/dl (12.0-16.0); Imm Gran Abs Auto 0.04 X10*3/uL (0.00-0.03); Imm Gran Pct Auto 0.4 % (0.0-0.4); Lymphocytes Absolute Auto 1.8 X10*3/uL (1.2-4.9); Lymphocytes Percent Auto 17.2 % (20-40); Mean Corpuscular Hemoglobin 30.8 pg (27.0-33.0); Mean Corpuscular Volume 90.6 fL (80.0-98.0); Mean Platelet Volume 10.6 fL (9.4-12.3); Monocytes Absolute Auto 0.7 X10*3/uL (0.1-1.2); Monocytes Percent Auto 6.2 % (2-11); Neutrophils Absolute Auto 7.7 x10*3/uL (2.0-8.3); Platelet Count 159 X10*3/uL (160-400); Red Blood Count 4.35 X10*6/uL (4.20-5.50); Red Cell Distribution Width 12.7 % (11.0-16.0); White Blood Count 10.7 X10*3/uL (4.8-10.8)
[2024-04-05 04:21] LABS: Prothrombin Time 11.6 SEC (10.9-12.4)
[2024-04-05 04:25] VITALS: BP 196/89
[2024-04-05] MEDS: amLODIPine Besylate 5 MG TABLET PO (04:25)
[2024-04-05 04:29] LABS: Anion Gap 14 (12-20); Blood Urea Nitrogen 16 mg/dL (9-16); Carbon Dioxide 24 mmol/L (22-29); Chloride 105 mmol/L (96-108); Estimated Glomerular Filt Rate > 60; Glucose Random 248 mg/dL (60-115); Potassium 4.5 mmol/L (3.3-5.1); Sodium 138 mmol/L (135-145)
[2024-04-05 06:10] VITALS: BP 180/100; PULSE 93; RESP 16; TEMP 36.6; O2SAT 96
[2024-04-05 06:11] VITALS: BP 160/90
[2024-04-05 07:00] VITALS: BP 160/90; PULSE 93; RESP 16; TEMP 36.6; O2SAT 96
== END 2024-04-05 07:23 | disposition home or self-care (01) ==
PROVIDERS: Emergency Provider Emergency Medicine; PCP Internal Medicine
DX: R04.0 Epistaxis (principal); I10 Essential (primary) hypertension; E11.9 Type 2 diabetes mellitus without complications; E78.5 Hyperlipidemia, unspecified; Z87.891 Personal history of nicotine dependence
CPT/HCPCS: 36415; 80048; 85025; 85610; 99283; 99284

== ENCOUNTER 2024-04-25 11:15 | Outpatient (AMB) | payer MEDICARE, OTHER, SELFPAY ==
--- NOTE | 2024-04-25 11:29 | MHC.OFFVIS ---
Vital Signs 04/25/24 11:31 BMI Reason not done Patient refused/unable BP 130/70 Blood Pressure Location Lt brachial Position Sitting Pulse 79 Pulse Source Pulse Oximeter Pulse Oximetry (%) 93 Oxygen Delivery Method Room Air Intake Visit Reasons: Osteoporosis Intake Note: Patient present today for Osteoporosis follow up. Metal Technician Required: No Accompanied by: Spouse Allergies Penicillins [PENICILLINS] Allergy (Unknown, Verified 04/25/24 11:32) Swelling phenytoin [From DILANTIN] Allergy (Unknown, Verified 04/25/24 11:32) Hives Medication List - Last Reconciled 04/25/24 by Evaristo Douglas MD ascorbate calcium (vitamin C) 1,000 mg PO BID blood sugar diagnostic As directed buspirone 5 mg PO DAILY carvedilol 12.5 mg PO BID cholecalciferol (vitamin D3) 100 mcg (2 x 50 mcg (2,000 unit)) PO DAILY 30 days ciclopirox 0.77% appl topical BID cranberry 500 mg PO BID denosumab (Prolia) 60 mg subcut [id number] lisinopril 5 mg PO DAILY metformin ER 500 mg PO DAILY mupirocin 2% topical BID nystatin 1 appl topical QID oxybutynin chloride 5 mg PO BEDTIME simvastatin 20 mg PO BEDTIME sitagliptin phosphate (Januvia) 25 mg PO DAILY triamcinolone acetonide 0.025% appl topical BID PRN HPI Comments Details: 78 yo female today for fup visit, for osteoporosis management She is feeling well. She is wheelchair-bound and she had a is able to walk 30 steps with a walker and her help. She has had for vertebral fractures so far the last 1 was in 2019. Her last Prolia shot was on 02/06/2020 , 08/07/2019. 12/21/2018. Patient completed 2 years of Forteo 20 mcg daily since May 2016. She is still in wheel chair, she is more mobile now, she walk short distances with her walker, she is doing 20 min of stationary bike daily. Positive prior fractures L1 L2, L4 L5 fracture. Bisphosphonates use: 5 years Calcium intake: on multivitamin only. Vitamin D: 4000 . Herbal medications. none To have 2 extractions this week she is currently on Evenity 210 mg Q monthly Date of Service: 05/23/20 BONE DENSITOMETRY FINDINGS: AP SPINE L2-L4 (excluding L1): The data of L1-L4 has been changed to exclude the L1 vertebral body, because degenerative changes at this level may cause overestimation of lumbar spine density. Current: BMD 0.973 g/cm2, Z-score -0.5, T-score -1.9, osteopenia, 8.2% decrease from previous, 23.0% increase from baseline (<5% change is not significant). Prior: BMD 1.060 g/cm2. Baseline: BMD 0.791 g/cm2. LEFT FEMUR, NECK: Current: BMD 0.537 g/cm2, Z-score -1.9, T-score -3.6, osteoporosis. Prior: BMD 0.555 g/cm2. Baseline: BMD 0.719 g/cm2. LEFT FEMUR, TOTAL: Current: BMD 0.542 g/cm2, Z-score -2.3, T-score -3.7, osteoporosis, 9.5% decrease from previous, 27.2% decrease from baseline (<5% change is not significant). Prior: BMD 0.599 g/cm2. Baseline: BMD 0.745 g/cm2. Laboratory Tests 04/27/18 01/04/19 04/17/19 08:00 08:00 08:50 Creatinine Est GFR (Non-Af Amer) Calcium Alkaline Phosphatase Albumin N-Telopeptide X-linked 12 25-OH Vitamin D Total 45.4 Vit D 1,25-Dihyd Total 1,25 Dihydroxy Vit D2 1,25 Dihydroxy Vit D3 TSH 3rd Generation 0.93 PTH Intact Ur 24 Hour Volume Ur Creatinine mg/dL Ur Creatinine 24 Hour Ur Calcium 24 Hr Calcium/Creat 24 Hr Bone Specific Alk Phos 04/17/19 04/21/19 04/21/19 08:50 09:00 09:00 Creatinine Est GFR (Non-Af Amer) Calcium Alkaline Phosphatase Albumin N-Telopeptide X-linked 25-OH Vitamin D Total Vit D 1,25-Dihyd Total 56 1,25 Dihydroxy Vit D2 <8 1,25 Dihydroxy Vit D3 56 TSH 3rd Generation PTH Intact 44 Ur 24 Hour Volume 1675 Ur Creatinine mg/dL 47.58 Ur Creatinine 24 Hour 0.80 Ur Calcium 24 Hr 191 Calcium/Creat 24 Hr 239 Bone Specific Alk Phos 16.2 08/21/19 11:14 Creatinine 0.70 Est GFR (Non-Af Amer) > 60 Calcium 9.1 D Alkaline Phosphatase 137 H D Albumin 3.8 N-Telopeptide X-linked 25-OH Vitamin D Total Vit D 1,25-Dihyd Total 1,25 Dihydroxy Vit D2 1,25 Dihydroxy Vit D3 TSH 3rd Generation PTH Intact Ur 24 Hour Volume Ur Creatinine mg/dL Ur Creatinine 24 Hour Ur Calcium 24 Hr Calcium/Creat 24 Hr Bone Specific Alk Phos The patient is a 78-year-old female presenting with a follow-up for osteoporosis management and assessment of a recent fall-related injury. She currently receives Prolia injections for osteoporosis, the latest administered in February 2023. Recently, while at breakfast, the patient experienced a fall after sliding off a seat due to an alphanumeric-covered yearbook. This incident led to her glasses breaking; however, there were no fractures or internal eye concerns reported following an ophthalmologic examination. The external bruising is significant but expected to resolve within four weeks according to prior medical advice. Calcium levels remain stable post-Prolia injections, and her next dose is planned in four months. 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 Mother No problems noted. Social History Patient Tobacco Use Status: Former Tobacco user Tobacco use type: Cigarette Cigarettes Per Day: 20 Years Smoked: 12 Assessment & Plan Assessment & Plan (1) Osteoporosis: Code(s): M81.0 - Age-related osteoporosis without current pathological fracture Category: Medical Qualifiers: Osteoporosis type: age-related Presence of current pathological fracture: without current pathological fracture Qualified Code(s): M81.0 - Age-related osteoporosis without current pathological fracture Plan: Is a 78-year-old white female with a history of multiple vertebral fractures who has tried Forteo, bisphosphonate and Prolia with worsening bone density. She has had complete secondary workup in the past. She is currently on Prolia after transitioning from [facility] 1. Osteoporosis: The osteoporosis treatment involves continuing with Prolia injections, scheduled every 6 months next injection in 4 mos , pending stable calcium levels. The next injection is due in August. She has been on the Prolia for a year and a half. Ongoing monitoring of bone health and calcium levels will guide any adjustments in therapy. Patient education regarding fall risks is essential. Might also consider ordering a DEXA bone density next visit . The patient had an opportunity to ask questions regarding treatment plan. The patient expressed understanding and agreement with the above treatment plan. Orders: Orders Basic Metabolic Panel 4 Months M81.0 - Age-related osteoporosis without current pathological fracture Calcium 4 Months M81.0 - Age-related osteoporosis without current pathological fracture Albumin Level 4 Months M81.0 - Age-related osteoporosis without current pathological fracture Coding Level of Care Code Est Pt Level 3 (84096) Diagnoses Age-related osteoporosis without current pathological fracture M81.0 Osteoporosis type: age-related Presence of current pathological fracture: without current pathological fracture
[2024-04-25 11:31] VITALS: BP 130/70; PULSE 79; O2SAT 93
--- OUTSIDE RECORDS SUMMARY | 2024-04-25 13:57 | XMS_ITS ---
Author Organization [facility] Address [address] [place] [address] Care Team Providers Care Marketing Sales Manager Name Role Phone Nathan Nickerson MD Primary Care Provider Riley Otoole Unavailable [phone] Allergies Allergen (clinical drug ingredient) Drug/Non Drug [...] Ordered Date Performed Result Body Sit e 31599-WUHJLPG NAIL, 6 OR MORE 02/29/2024 N/A 93435-BTCJ SKIN LESIONS, 2 TO 4 02/29/2024 N/A Encounters Encounter Location Date Provider Diagnosis [facility] [address] [address] 02/29/2024 Riley Rodrigues Type 2 diabetes mellitus [...] INSTRUCTIONS.pdf) Pending Test Test Name Order Date 64972-PTYSSVL NAIL, 6 OR MORE 02/29/2024 20464-GCNZ SKIN LESIONS, 2 TO 4 02/28/19 25 Next Appt Details Follow Up: prn, Reason: Provider Name:Riley Rodrigues , 05/30/2024 09:00:00 AM, [address] [place] [address], [phone], Procedure Notes * Category Sub-Category Detail Notes [...] use of a nail nipper and/or dremel-type profile grinder, to a more viable healthy nail [...] to maintain effectiveness in symptomatic relief - 73099 Keratoma Treatment Parring or Cutting o f [...] instrumentation by the physician of record - 23293 Progress Notes * Lizbeth PARSONMervatOB:1945 (78 yo F)Acc No.[id number]:02/29/2024 Progress Note Patient:?Jossie PARSON Provider:?Riley Rodrigues DPM :1945???Age:78 Y???Sex:Female D ate:02/29/2024 Address:[address] [place] [address], [place], [id number] Pcp:Nathan Nickerson MD Subjective: * Chief Complaints: [...] 09/2019 * Hospitalization/Major Diagno stic Procedure:?admitted to [facility] for a fall- DX- fracture back for 4 days then Kimber jacob 01/09/[facility] [place] on left leg stitches were done [address] [place] [address]- rehab back sx 4 weeks 09/2019 * [...] 6.5 * Examination: ???Ophthalmology Referral: ?DIABETES EYE EXAM?Procedure Performed:?Yes ?Date of Exam Performed?03/03/2023 ?Diabetic Retinopathy Screening:?Yes ?Findings of Diabetic Eye Exam:?no retinopathy?Neurological: ?SENSORY:?Neurological exam demonstrates, reduced light touch sensation, [...] for office visit today.?ORIENTED:?person, place, and time.?FOOT EXAM:?Lower Extremity Neurological Exam performed:?Yes ?Visual exam of foot performed:?Yes ?Date?02/29/2024 ?Footwear Evaluation?Footwear Evaluation performed:?Yes??? Assessment: * Assessment: 1.?Type 2 diabetes mellitus [...] use of a nail nipper and/or dremel-type profile grinder, to a more viable healthy nail [...] to maintain effectiveness in symptomatic relief - 86299.?Keratoma Treatment:?Parring or Cutting of Benign Hyperkeratotic Lesion(s)?(-56) [...] instrumentation by the physician of record - 94811.? * Procedure Codes:?07954 DEBRI DE NAIL, 6 OR MORE, Modifiers: XS 87786 TRIM SKIN LESIONS, 2 TO 4, Modifiers: [...] Rodrigues DPM Date:?2024 Generated for Lashay oshea/Nico/Lisa on:?04/25/2024 01:57 PM EDT History and Physical Notes * HPI (History [...]
--- OUTSIDE RECORDS SUMMARY | 2024-04-25 13:57 | XMS_ITS ---
Author Organization [facility] Address [address] [place] [address] Care Team Providers Care Pipe Liner Name Role Phone Nathan Nickerson MD Primary Care Provider Riley Otoole Unavailable [phone] Allergies Allergen (clinical drug ingredient) Drug/Non Drug [...] Ordered Date Performed Result Body Sit e 74907-BWNSYTI NAIL, 6 OR MORE 08/10/2023 N/A 26111-MVAK SKIN LESIONS, 2 TO 4 08/10/2023 N/A Encounters Encounter Location Date Provider Diagnosis [facility] [address] [address] 08/10/2023 Riley Rodrigues Type 2 diabetes mellitus with diabetic polyneuropathy E11.42 and Tinea unguium B35.1 Assessments Encounter Date Diagnosis (ICD Code) Assessment Notes Treatment Notes Treatment Clinical Notes Section Notes 08/10/2023 Type 2 diabetes mellitus with diabetic polyneuropathy (ICD-10 - E11.42) 08/10/2023 Tinea unguium (ICD-10 - B35.1) 08/10/2023 Other Plan Of Treatment Pending Test Test Name Order Date 37897-DFIYJRI NAIL, 6 OR MORE 08/10/2023 23767-ZBSE SKIN LESIONS, 2 TO 4 08/10/19 24 Next Appt Details Follow Up: prn, Reason: Provider Name:Riley Rodrigues , 05/30/2024 09:00:00 AM, [address] [place] [address], [phone], Procedure Notes * Category Sub-Category Detail Notes [...] as necessary. Patient chooses, no pharmaceutical tx (27339) Keratoma Treatment Parring or Cutting o f Benign Hyperkeratotic Lesion(s) 20038 (2-4 Lesions) - The Benign hyperkeratotic lesions, as described above were pared, and/or cut utilizing a sterile #15 blade, tissue nippers, and/or dremel Progress Notes * John PARSONOB:1945 (78 yo F)Acc No.[id number]:08/10/2023 Progress Note Patient:Jossie Jang Provider:?Riley Rodrigues DPM :1945???Age:78 Y???Sex:Female D ate:08/10/2023 Address:[address] [place], [place] [phone] Pcp:Nathan Nickerson MD Subjective: * Chief Complaints: [...] 09/2019 * Hospitalization/Major Diagno stic Procedure:?admitted to [facility] for a fall- DX- fracture back for 4 days then Kimber jacob 01/09/2016[facility] for sliver on left leg stitches were done [address] [place] [address]- rehab back sx 4 weeks 09/2019 * [...] as necessary. Patient chooses, no pharmaceutical tx (25347).?Keratoma Treatment:?Parring or Cutting of Benign Hyperkeratotic Lesion(s)?31288 (2-4 Lesions) - The Benign hyperkeratotic lesions, as described above were pared, and/or cut utilizing a sterile #15 blade, tissue nippers, and/or dremel.? * Procedure Codes:?46194 DEBRI DE NAIL, 6 OR MORE, Modifiers: XS 41382 TRIM SKIN LESIONS, 2 TO 4, Modifiers: XS * Follow Up:?prn * Images: * Sign off status: Completed Addendum: * ? true * Provider:?Riley Rodrigues DPM Date:?2023 Generated for Lashay oshea/Nico/Judithsmitting on:?04/25/2024 01:57 PM EDT History and Physical [...]
--- OUTSIDE RECORDS SUMMARY | 2024-04-25 13:57 | XMS_ITS | Clinical Summary ---
Author Organization [facility] Address [address] [place] [address] Care Team Providers Care Bulk Plant Manager Name Role Phone Nathan Nickerson MD Primary Care Provider [phone] Social History Tobacco Use Types Packs/Day Years [...] Documents on File Type Date Recorded Patient Java Tech Expl anation Health Care Decision (hx) 08/28/2019 AD BOOTH DIRECTIVE Health Care Decision (hx) 08/23/2019 AD BOOTH DIRECTIVE Care Teams Bulk Plant Manager Relationship Specialty Start Date End Date Nathan Nickerson MD [address] [place] [address] PCP - General Internal Medicine 08/17/19
--- OUTSIDE RECORDS SUMMARY | 2024-04-25 13:58 | XMS_ITS | Patient Health Record ---
Author Organization [facility] Address [address] [place] [address] Care Team Providers Care Retail Event And Sales Assistant Name Role Phone Nathan Nickerson MD Primary Care Provider Riley Otoole Unavailable [phone] Allergies Allergen (clinical drug ingredient) Drug/Non Drug [...] Problem Acquired hammer toe of right foot (4123690021990952 ) Other hammer toe(s) (acquired), right foot (M20.41) Active confirmed Problem Acquired hammer toe of left foot (6828568302957921 ) Other hammer toe(s) (acquired), left foot (M20.42) Active confirmed Problem Polyneuropathy due to type 2 diabetes mellitus (199203312) Type 2 diabetes mellitus with diabetic polyneuropathy (E11.42) Active confirmed Vital Signs Blood pressure diastolic 70 mm Hg 02/29/2024 Height 5 ft 7 in in 02/29/2024 Blood pressure systolic 120 mm Hg 02/29/2024 Weight 160 lbs 02/29/2024 BMI 25.06 kg/m2 02/29/2024 Procedures Procedure Date Ordered Date Performed Result Body Sit e 36228-YTVJNMO NAIL, 6 OR MORE 05/11/2023 N/A 27773-YSQB SKIN LESIONS, 2 TO 4 05/11/2023 N/A 77205-QSCHOMK NAIL, 6 OR MORE 08/10/2023 N/A 91617-YGAF SKIN LESIONS, 2 TO 4 08/10/2023 N/A 79375-WMWSKTZ NAIL, 6 OR MORE 11/12/2023 N/A 10866-VZUH SKIN LESIONS, 2 TO 4 11/12/2023 N/A 07753-LAAOBOD NAIL, 6 OR MORE 02/29/2024 N/A 20191-OFYW SKIN LESIONS, 2 TO 4 02/29/2024 N/A Encounters Encounter Location Date Provider Diagnosis [address] [address] 05/11/2023 Rileyenrique DaleyRavi Type 2 diabetes mellitus with diabetic polyneuropathy E11.42 ; Tinea unguium B35.1 ; Other hammer toe(s) (acquired), right foot M20.41 and Other hammer toe(s) (acquired), left foot M20.[address] [address] 08/10/2023 Riley Ravi Type 2 diabetes mellitus with diabetic polyneuropathy E11.42 and Tinea unguium B35.[address] [address] 11/12/2023 Riley Ravi Type 2 diabetes mellitus with diabetic polyneuropathy E11.42 and Tinea unguium B35.[address] [address] 02/29/2024 Riley Ravi Type 2 diabetes mellitus [...] Test Name Order Date Hemoglobin A1c 03/12/2015 55289-RHFHTUF NAIL, 6 OR MORE 03/12/2015 84553-DCVBGFB NAIL, 6 OR MORE 06/21/2015 38247-XKGYRZQ NAIL, 6 OR MORE 09/24/2015 67563-CAILQDC NAIL, 6 OR MORE 12/27/2015 04189-XTXAZJJ NAIL, 6 OR MORE 04/03/2016 20347-BDECXOY NAIL, 6 OR MORE 07/07/2016 61958-NLQOCVR NAIL, 6 OR MORE 10/16/2016 77139-IWLMIHU NAIL, 6 OR MORE 01/22/2017 34938-JSUZVNW NAIL, 6 OR MORE 04/30/2017 36993-CGVVOGP NAIL, 6 OR MORE 07/30/2017 93899-AOOLVXX NAIL, 6 OR MORE 11/02/2017 73811-GEBISSQ NAIL, 6 OR MORE 02/25/2018 00224-DAXRSCO NAIL, 6 OR MORE 05/31/2018 17832-ZTOQXHQ NAIL, 6 OR MORE 09/06/2018 37023-QJTNTDM NAIL, 6 OR MORE 11/25/2018 44563-KREIGJW NAIL, 6 OR MORE 03/07/2019 48161-IFETSQC NAIL, 6 OR MORE 11/11/2010 80522-HPBVUDS NAIL, 6 OR MORE 02/03/2011 98837-HICPARJ NAIL, 6 OR MORE 05/12/2011 00213-QMFLXGW NAIL, 6 OR MORE 08/04/2011 30638-AKPPNUO NAIL, 6 OR MORE 11/06/2011 92789-PJXNAYU NAIL, 6 OR MORE 01/29/2012 17435-UDXWVLP NAIL, 6 OR MORE 05/06/2012 67791-BBIHQJU NAIL, 6 OR MORE 07/29/2012 08256-BURRVSP NAIL, 6 OR MORE 10/28/2012 40302-IZWAKSQ NAIL, 6 OR MORE 01/31/2013 98538-COWZPHC NAIL, 6 OR MORE 05/09/2013 75048-DCRTYOU NAIL, 6 OR MORE 08/15/2013 33969-KNLIAFU NAIL, 6 OR MORE 11/21/2013 14223-NFMCJAJ NAIL, 6 OR MORE 02/27/2014 09444-QWVNCNF NAIL, 6 OR MORE 05/29/2014 61811-ONKXDTE NAIL, 6 OR MORE 09/04/2014 84617-NWAHYSF NAIL, 6 OR MORE 12/04/2014 81478-TLWNCZK NAIL, 6 OR MORE 11/21/2019 52896-GJXDZZQ NAIL, 6 OR MORE 02/27/2020 73407-CTIPPBP NAIL, 6 OR MORE 05/28/2020 42203-WJGRVMH NAIL, 6 OR MORE 09/06/2020 35522-YGQWPUT NAIL, 6 OR MORE 12/10/2020 22119-FFEWWWT NAIL, 6 OR MORE 04/29/2021 40141-TUJXIBO NAIL, 6 OR MORE 09/09/2021 95326-YLTZZIZ NAIL, 6 OR MORE 12/16/2021 90448-JDVMRNP NAIL, 6 OR MORE 04/10/2022 86409-VSKBJMS NAIL, 6 OR MORE 07/17/2022 86165-IWGDPHG NAIL, 6 OR MORE 10/23/2022 01464-SZQSYXT NAIL, 6 OR MORE 02/02/2023 49134-CPEBTTG NAIL, 6 OR MORE 05/11/2023 51943-WUTGEDZ NAIL, 6 OR MORE 08/10/2023 18859-CLUILYK NAIL, 6 OR MORE 11/12/2023 41783-YYQNOLR NAIL, 6 OR MORE 02/29/2024 77603-Agkecsor Plate 02/27/2020 93934-Vxlpfzzd Plate 02/02/2023 86994-Fbtmjgkt Plate 03/12/2015 61719 I&D ABSCESS- SIMPLE,SINGLE 012 45177-VQVP SKIN LESIONS, OVER 4 03/12/19 16 73560-JFDL SKIN LESIONS, OVER 4 09/24/19 16 47802-CXIB SKIN LESIONS, OVER 4 06/21/19 16 77973-JYWW SKIN LESIONS, OVER 4 01/23/20 17 06057-CNVE SKIN LESIONS, OVER 4 10/17/19 17 37822-BCIR SKIN LESIONS, OVER 4 04/03/19 17 61524-GKTQ SKIN LESIONS, OVER 4 07/08/19 17 39102-UPSZ SKIN LESIONS, OVER 4 12/27/19 16 43540-RYWR SKIN LESIONS, OVER 4 02/25/19 19 00754-FZGA SKIN LESIONS, OVER 4 11/03/19 18 68557-GSIP SKIN LESIONS, OVER 4 07/31/19 18 09386-BNKG SKIN LESIONS, OVER 4 05/01/19 18 50114-SEWW SKIN LESIONS, OVER 4 12/05/19 15 39450-YJGZ SKIN LESIONS, OVER 4 09/05/19 15 48319-EPEZ SKIN LESIONS, OVER 4 05/30/19 15 01941-FINK SKIN LESIONS, OVER 4 02/27/19 15 67094-PFUN SKIN LESIONS, OVER 4 11/22/19 14 08757-QVHQ SKIN LESIONS, OVER 4 08/16/19 14 31537-HXBT SKIN LESIONS, OVER 4 05/10/19 14 99815-RGAP SKIN LESIONS, OVER 4 02/01/20 13 23747-WPDB SKIN LESIONS, 2 TO 4 10/29/19 13 35514-AGEH SKIN LESIONS, 2 TO 4 07/30/19 13 89255-NIRH SKIN LESIONS, 2 TO 4 05/07/19 13 87934-NAIY SKIN LESIONS, 2 TO 4 01/29/20 12 93631-QDLM SKIN LESIONS, 2 TO 4 11/06/19 12 47106-QNOV SKIN LESIONS, 2 TO 4 08/04/19 12 61364-XICG SKIN LESIONS, 2 TO 4 05/12/19 12 52841-GVZJ SKIN LESIONS, 2 TO 4 03/07/19 20 36656-XHCI SKIN LESIONS, 2 TO 4 11/26/19 19 62542-LEBU SKIN LESIONS, 2 TO 4 09/07/19 19 10799-CMFM SKIN LESIONS, 2 TO 4 06/01/19 19 84416-TXNF SKIN LESIONS, 2 TO 4 05/11/19 24 36055-YVFH SKIN LESIONS, 2 TO 4 11/12/19 24 52488-PNNV SKIN LESIONS, 2 TO 4 08/10/19 24 02649-KOMI SKIN LESIONS, 2 TO 4 02/03/20 73398-KCEQ SKIN LESIONS, 2 TO 4 10/24/19 33623-FMQG SKIN LESIONS, 2 TO 4 07/18/19 73684-XVMY SKIN LESIONS, 2 TO 4 04/10/19 99153-HPAX SKIN LESIONS, 2 TO 4 12/17/19 63236-OURJ SKIN LESIONS, 2 TO 4 09/10/19 06743-TXBJ SKIN LESIONS, 2 TO 4 04/30/19 21311-QKPT SKIN LESIONS, 2 TO 4 12/11/19 54159-FOQH SKIN LESIONS, 2 TO 4 09/07/19 33656-IMGY SKIN LESIONS, 2 TO 4 05/29/19 27885-CIFM SKIN LESIONS, 2 TO 4 02/26/19 09091-GJTG SKIN LESIONS, 2 TO 4 11/21/19 43572-XXWH SKIN LESIONS, 2 TO 4 02/28/19 Next Appt Details Provider Name:Riley Rodrigues , 05/30/2024 09:00:00 AM, [address] [place], [address], Insurance Providers Payer Name Payer Address Payer Phone Subscriber Number Group Number Insured Name Patient Relationship to Insured Coverage Start Date Coverage End Date Medicare National Govt [facility] [address] [place] [address] [id number] Jossie Parson Self - patient is the insured 1 [employer]) [address] [place] [address] [phone] [id number] Jossie Parson Self - patient is the insured Medical (General) History Medical History History ICD Code Cholesterol psoriasis osteoporosis cancer broken bones hypertension Diabetic type ll Surgical History Surgery Date(Month/Year) appendectomy brain surgery hip surgery hysterectomy back surgery 09/2019 Hospitalization History Reason Date(Month/Year) [facility]- rehab back sx 4 weeks [facility] for sliver on left leg stitches w ere done 2016 admitted to [facility] for a f all- DX- fracture back for 4 days then Kimber jacob 01/09/2016
--- OUTSIDE RECORDS SUMMARY | 2024-04-25 13:58 | XMS_ITS | Patient Health Record ---
Author Organization [facility] Address [address] [place] [address] Care Team Providers Care Industrial Relations Director Name Role Phone Nathan Nickerson MD Primary Care Provider Evaristo Olivas [phone] Allergies Allergen (clinical drug ingredient) Drug/Non Drug Allergy documented on EMR Reaction Allergy Type Onset Date Status penicillin G Penicillin G Potassium Unknown Drug Allergy Active phenytoin Dilantin Unknown Drug Allergy Active Reason For Referral No [...] Cranberry 500 MG as directed Orally Active Immunizations Vaccine Route Administration Date Status Comme nts Influenza Unknown 10/16/2017 Administered Influenza Unknown 10/16/2020 Administered Social History Tobacco Use: Social History Observation Description Date Details (start date - stop date) Former Smoker NA - NA Tobacco Use/Smoking Question Answer Notes Patient is a former smoker How long has it been since you last smoked? > 10 years Alcohol Screen Question Answer Notes Did you have a drink containing alcohol in the p ast year? No Points 0 Interpretation Negative Section Notes: Nonsmoker; occasional glass of wine Nonsmoker; very occasional g lass of wine Problems Problem Type SNOMED Code ICD Code Onset Dates Problem Status W/U Status Risk Notes Problem 552483968 Encounter for screening for malignant neoplasm of colon (Z12.11) Active confirmed Problem 629533737209937 Preprocedural examination (Z01.818) Active confirmed Problem 311256465 Family history o f colon cancer (Z80.0) Active confirmed Problem Abnormal feces (514423803) Heme + stool (R19.5) Active confirmed Problem 688170677 Long-term use of high-risk medication (Z79.899) Active confirmed Problem Diverticulosis of colon (128981663) Diverticulosis of colon (K57.30) Active confirmed Plan Of Treatment Pending Test Test Name Order Date Pathology 11/03/2021 Future Test Test Name Order Date COLONOSCOPY 03/17/2018 COLONOSCOPY 10/09/2021 Insurance Providers Payer Name Payer Address Payer Phone Subscriber Number Group Number Insured Name Patient Relationship to Insured Coverage Start Date Coverage End Date MEDICARE OF [place] [address] [place] [address] [id number] BIPIN SLATER Self - patient is the insured [facility] [employer] [address] [place] [address] [id number] BIPIN SLATER Self - patient is the insured Medical (General) History Medical History History ICD Code NIDDM Denies [place],CVA,Lung disease,renal disease Neg. 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
--- OUTSIDE RECORDS SUMMARY | 2024-04-25 13:58 | XMS_ITS ---
[facility] Address [address] [place] [address] Care Team Providers Care Cabinet Assembler Name Role Phone Nathan Nickerson MD Primary Care Provider Riley Otoole Unavailable [phone] Allergies Allergen (clinical drug ingredient) Drug/Non Drug [...] Ordered Date Performed Result Body Sit e 20825-HUEKLFP NAIL, 6 OR MORE 11/12/2023 N/A 55630-QHLC SKIN LESIONS, 2 TO 4 11/12/2023 N/A Encounters Encounter Location Date Provider Diagnosis [facility] [address] [address] 11/12/2023 Riley Rodrigues Type 2 diabetes mellitus with diabetic polyneuropathy E11.42 and Tinea unguium B35.1 Assessments Encounter Date Diagnosis (ICD Code) Assessment Notes Treatment Notes Treatment Clinical Notes Section Notes 11/12/2023 Type 2 diabetes mellitus with diabetic polyneuropathy (ICD-10 - E11.42) 11/12/2023 Tinea unguium (ICD-10 - B35.1) 11/12/2023 Other Plan Of Treatment Pending Test Test Name Order Date 83489-XJJWMLI NAIL, 6 OR MORE 11/12/2023 53239-THTX SKIN LESIONS, 2 TO 4 11/12/19 24 Next Appt Details Follow Up: prn, Reason: Provider Name:Riley Rodrigues , 05/30/2024 09:00:00 AM, [address] [place] [address], [id number], Procedure Notes * Category Sub-Category Detail Notes Debride Nail 6-10 Nail debridement Performance o f this nail treatment by a nonprofessional would put this patients foot and overall health at risk. Therefore, nail debridement was performed extensively to reduce/remove overall nail length, girth, thickness, subungual debris, and necrotic tissue, by manual and/or electrical means through the use of a nail nipper and/or dremel-type paint grinder, to a more viable healthy nail plate or bed tissue 6-10. Silver nitrate used for any petechial bleeding as necessary. Definitive antifungal treatment options have been reviewed and discussed with the patient. The patient chooses, no pharmaceutical tx - 30873 Keratoma Treatment Parring or Cutting o f Benign Hyperkeratotic Lesion(s) (-56) 2-4 Lesions - The Benign hyperkeratotic lesions, as described above were pared, and/or cut utilizing a sterile 15 blade, tissue nippers, and/or dremel - 34839 Progress Notes * John PARSONOB:1945 (78 yo F)Acc No.[id number]:11/12/2023 Progress Note Patient:?Jossie Parson Provider:?Riley Rodrigues DPM :1945???Age:78 Y???Sex:Female D ate:11/12/2023 Address:[address] [place], [place] [address] Pcp:Nathan Nickerson MD Subjective: * Chief Complaints: [...] 09/2019 * Hospitalization/Major Diagno stic Procedure:?admitted to [facility] for a fall- DX- fracture back for 4 days then Kimber jacob 01/09/2016[facility] for sliver on left leg stitches were done [address] [place] [address]- rehab back sx 4 weeks 09/2019 * [...] use of a nail nipper and/or dremel-type paint grinder, to a more viable healthy nail plate or bed tissue 6-10. Silver nitrate used for any petechial bleeding as necessary. Definitive antifungal treatment options have been reviewed and discussed with the patient. The patient chooses, no pharmaceutical tx - 66776.?Keratoma Treatment:?Parring or Cutting of Benign Hyperkeratotic Lesion(s)?(-56) 2-4 Lesions - The Benign hyperkeratotic lesions, as described above were pared, and/or cut utilizing a sterile 15 blade, tissue nippers, and/or dremel - 15064.? * Procedure Codes:?02048 DEBRI DE NAIL, 6 OR MORE, Modifiers: XS 04168 TRIM SKIN LESIONS, 2 TO 4, Modifiers: XS * Follow Up:?prn * Images: * Sign off status: Completed true * Provider:?Riley Rodrigues DPM Date:?2023 Generated for Lashay oshea/Nico/eTraphaelsmitting on:?04/25/2024 01:58 PM EDT History and Physical Notes * [...]
== END 2024-04-25 11:45 | disposition home or self-care (01) ==
LOC: HO.ENCR 11:16
PROVIDERS: PCP Internal Medicine; Visit Provider Internal Medicine Endocrinology, Diabetes & Metabolism
DX: M81.0 Age-related osteoporosis without current pathological fracture (principal)
CPT/HCPCS: 99213

== ENCOUNTER → 2024-04-25 11:15 | Outpatient (BNVA) | payer MEDICARE, OTHER, SELFPAY | PROVIDERS: PCP Internal Medicine; Visit Provider Internal Medicine Endocrinology, Diabetes & Metabolism | DX: M81.0 Age-related osteoporosis without current pathological fracture (principal); Z79.620 Long term (current) use of immunosuppressive biologic | CPT/HCPCS: 99212 ==

== ENCOUNTER 2024-08-15 09:39 | Outpatient (REF) | payer MEDICARE, OTHER, SELFPAY ==
--- OUTSIDE RECORDS SUMMARY | 2024-08-15 10:26 | XMS_ITS | Patient Health Record ---
Author Organization [facility] Address [address] [place] [address] Care Team Providers Care Japanese Interpreter Name Role Phone Nathan Nickerson MD Primary Care Provider Evaristo Olivas [phone] Allergies Allergen (clinical drug ingredient) Drug/Non Drug [...] Problem Status W/U Status Risk Notes Problem 281836531 Encounter for screening for malignant neoplasm of colon (Z12.11) Active confirmed Problem 202686250124137 Preprocedural examination (Z01.818) Active confirmed Problem 063974037 Family history o f colon cancer (Z80.0) Active confirmed Problem Abnormal feces (752155035) Heme + stool (R19.5) Active confirmed Problem 039578031 Long-term use of high-risk medication (Z79.899) Active confirmed Problem Diverticulosis of colon (060378335) Diverticulosis of colon (K57.30) Active confirmed Plan Of Treatment Pending Test Test Name Order Date Pathology 11/03/2021 Future Test Test Name Order Date COLONOSCOPY 03/17/2018 COLONOSCOPY 10/09/2021 Insurance Providers Payer Name Payer Address Payer Phone Subscriber Number Group Number Insured Name Patient Relationship to Insured Coverage Start Date Coverage End Date MEDICARE OF [place] [address] [place] [address] [id number] BIPIN SLATER Self - patient is the insured [facility] [employer] [address] [place] [address] [id number] BIPIN SLATER Self - patient is the insured Medical (General) History Medical History History ICD Code NIDDM Denies [place],CVA,Lung disease,renal disease Neg. 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
--- OUTSIDE RECORDS SUMMARY | 2024-08-15 10:26 | XMS_ITS | Clinical Summary ---
Author Organization [facility] Address [address] [place] [address] Care Team Providers Care Principal Electrical Engineer Name Role Phone Nathan Nickerson MD Primary Care Provider [phone] Social History Tobacco Use Types Packs/Day Years [...] Vaccines (1 of 2) 07/02/1995 RSV Immunization Adult Patie nts (1 - 1-dose 75+ series) 2020 COVID-19 Vaccine (2023-2 5 season) 2023 Influenza Vaccine (#1) 2024 HIB Vaccines Aged Out No longer eligi [...] age to complete this topic Meningococcal B Vaccine Aged Out No l onger eligible based on patient's age to complete this topic RSV Immunization Patients Un ludivina 20 months Aged Out No longer eligible b ased on patient's age to complete this topic Varicella Vaccines Aged Out No longer eligible based on patient's age to complete this topic Advance Directives Documents on File Type Date Recorded 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
--- OUTSIDE RECORDS SUMMARY | 2024-08-15 10:26 | XMS_ITS | Patient Health Record ---
Author Organization [facility] Address [address] [place] [address] Care Team Providers Care Band Top Maker Name Role Phone Nathan Nickerson MD Primary Care Provider Riley Otoole Unavailable [phone] Allergies Allergen (clinical drug ingredient) Drug/Non Drug Allergy documented on EMR Reaction Allergy Type Onset Date Status Jazmyn type anesthetics (uncoded) can't remember Allergy Active phenytoin Dilantin rash Drug Allergy Active Penicillin rash Drug Allergy Active Results Component Value Reference Range Notes HEMOGLOBIN A1C (GLYCOHEMOGLO BIN) Reviewed date:05/30/2024 09:08:53 AM Interpretation: Performing Lab: Notes/Report: HEMOGLOBIN A1C % (HH) 6.5 HEMOGLOBIN A1C (GLYCOHEMOGLO BIN) Reviewed date:02/29/2024 09:20:21 AM Interpretation: Performing Lab: Notes/Report: HEMOGLOBIN A1C % (HH) 6.5 Reason For Referral No Information Medications Medication SIG (Take, Route, Frequency, Duration) Notes Start Date End Date Status Lisinopril Not-Takin g Gabapentin 300 MG Once a day N ot-Taking oxyBUTYnin Not-Takin g clonazePAM Not-Takin g Glimepiride Not-Taki ng Calcium Citrate Not- Taking Vitamin E 1000 UNIT Orally Not-Taking Multi Vitamin Active Lisinopril Active busPIRone HCl Active Metformin & Diet Manage Prod 500MG once a day Active Extra Depth Orthopedic Shoes (1 Pair) with Customized Heat Molded Multidensity Innersoles (3 Pair) as directed Dx: NIDDM/Polyneuropathy (E11.42), Hammertoe Foot Deformity (M20.41,M20.42), Preulcerative Skin Lesion(s) (L85.1 05/11/2023 Active Lovenox Not-Taking Simvastatin 20 MG Orally Once a day Active Vitamin D Active Immunizations Vaccine Route Administration Date Status [...] Problem Acquired hammer toe of right foot (7130295118384233 ) Other hammer toe(s) (acquired), right foot (M20.41) Active confirmed Problem Acquired hammer toe of left foot (1011647467919887 ) Other hammer toe(s) (acquired), left foot (M20.42) Active confirmed Problem Polyneuropathy due to type 2 diabetes mellitus (142965093) Type 2 diabetes mellitus with diabetic polyneuropathy (E11.42) Active confirmed Vital Signs Blood pressure diastolic 60 mm Hg 05/30/2024 Height 5 ft 7 in in 05/30/2024 Blood pressure systolic 130 mm Hg 05/30/2024 Weight 160 lbs 05/30/2024 BMI 25.06 kg/m2 05/30/2024 Procedures Procedure Date Ordered Date Performed Result Body Sit e 21209-AJMJRUW NAIL, 6 OR MORE 11/12/2023 N/A 48075-MMLC SKIN LESIONS, 2 TO 4 11/12/2023 N/A 13937-VWFQACL NAIL, 6 OR MORE 02/29/2024 N/A 68708-KUMV SKIN LESIONS, 2 TO 4 02/29/2024 N/A 95090-PIDMCOY NAIL, 6 OR MORE 05/30/2024 N/A 40973-WONG SKIN LESIONS, 2 TO 4 05/30/2024 N/A Encounters Encounter Location Date Provider Diagnosis [address] [address] 11/12/2023 Riley Rodrigues Type 2 diabetes mellitus with diabetic polyneuropathy E11.42 and Tinea unguium B35.[address] [address] 02/29/2024 Rileyenrique Rodrigues Type 2 diabetes mellitus with diabetic polyneuropathy E11.42 ; Tinea unguium B35.1 ; Other hammer toe(s) (acquired), right foot M20.41 and Other hammer toe(s) (acquired), left foot M20.[address] [address] 05/30/2024 Riley Rodrigues Type 2 diabetes mellitus with diabetic polyneuropathy E11.42 and Tinea unguium B35.1 Assessments Encounter Date Diagnosis (ICD Code) Assessment Notes Treatment Notes Treatment Clinical Notes Section Notes 11/12/2023 Type 2 diabetes mellitus with diabetic polyneuropathy (ICD-10 - E11.42) 11/12/2023 Tinea unguium (ICD-10 - B35.1) 02/29/2024 Type 2 diabetes mellitus with diabetic polyneuropathy (ICD-10 - E11.42) 02/29/2024 Tinea unguium (ICD-10 - B35.1) 05/30/2024 Type 2 diabetes mellitus with diabetic polyneuropathy (ICD-10 - E11.42) 05/30/2024 Tinea unguium (ICD-10 - B35.1) 02/29/2024 Other hammer toe(s) (acquired), right foot (ICD-10 - M20.41) Patient Educated with: DIABETIC FOOT CARE INSTRUCTIONS. pdf (DIABETIC FOOT CARE INSTRUCTIONS. pdf) 02/29/2024 Other hammer toe(s) (acquired), left foot (ICD-10 - M20.42) 11/12/2023 Other 05/30/2024 Other Plan Of Treatment Pending Test Test Name Order Date Hemoglobin A1c 03/12/2015 57989-IUSGAQS NAIL, 6 OR MORE 03/12/2015 39657-RLNOIBO NAIL, 6 OR MORE 06/21/2015 11824-HFPCPCU NAIL, 6 OR MORE 09/24/2015 21468-AAVDVZG NAIL, 6 OR MORE 12/27/2015 67355-WHYMQAX NAIL, 6 OR MORE 04/03/2016 15084-ISNTWMX NAIL, 6 OR MORE 07/07/2016 10009-IGFHXIU NAIL, 6 OR MORE 10/16/2016 99460-OQNSTVA NAIL, 6 OR MORE 01/22/2017 84356-GGEJRGC NAIL, 6 OR MORE 04/30/2017 43546-OHQMSEA NAIL, 6 OR MORE 07/30/2017 25659-BFBEBAY NAIL, 6 OR MORE 11/02/2017 42452-QGYUGYK NAIL, 6 OR MORE 02/25/2018 24430-PCOTRNV NAIL, 6 OR MORE 05/31/2018 11987-MYJOKTA NAIL, 6 OR MORE 09/06/2018 37723-PKKVDKR NAIL, 6 OR MORE 11/25/2018 82113-BGAISWP NAIL, 6 OR MORE 03/07/2019 61254-EUHKYTE NAIL, 6 OR MORE 11/11/2010 62288-GADQPMY NAIL, 6 OR MORE 02/03/2011 06229-PKMZMHI NAIL, 6 OR MORE 05/12/2011 47173-HVBJNNN NAIL, 6 OR MORE 08/04/2011 20014-FDFKXEM NAIL, 6 OR MORE 11/06/2011 60323-YIIKZBM NAIL, 6 OR MORE 01/29/2012 22214-GSBAPGF NAIL, 6 OR MORE 05/06/2012 53611-EAKFQJN NAIL, 6 OR MORE 07/29/2012 39128-ZKZRNCJ NAIL, 6 OR MORE 10/28/2012 49954-TXZLGEP NAIL, 6 OR MORE 01/31/2013 64232-HPUPMFR NAIL, 6 OR MORE 05/09/2013 42233-RTASAXE NAIL, 6 OR MORE 08/15/2013 41017-FGPLDKY NAIL, 6 OR MORE 11/21/2013 07963-XAGKDUM NAIL, 6 OR MORE 02/27/2014 21860-CHGOJLO NAIL, 6 OR MORE 05/29/2014 12363-OQJBFKY NAIL, 6 OR MORE 09/04/2014 24809-EUMEWBA NAIL, 6 OR MORE 12/04/2014 35897-HLDYMYJ NAIL, 6 OR MORE 11/21/2019 22183-WJQUDUY NAIL, 6 OR MORE 02/27/2020 73621-IWKEYOG NAIL, 6 OR MORE 05/28/2020 38591-MXCAHRV NAIL, 6 OR MORE 09/06/2020 50628-UCXOFYU NAIL, 6 OR MORE 12/10/2020 77030-XWORIUJ NAIL, 6 OR MORE 04/29/2021 93824-RHLPPSZ NAIL, 6 OR MORE 09/09/2021 22346-QTCUOMV NAIL, 6 OR MORE 12/16/2021 50867-COHXGMO NAIL, 6 OR MORE 04/10/2022 83867-QLRUOEZ NAIL, 6 OR MORE 07/17/2022 71851-AUFZFBA NAIL, 6 OR MORE 10/23/2022 90873-NCMXLHU NAIL, 6 OR MORE 02/02/2023 45700-IRMMSKZ NAIL, 6 OR MORE 05/11/2023 05289-VHRWGTN NAIL, 6 OR MORE 08/10/2023 81078-MMCTGZG NAIL, 6 OR MORE 11/12/2023 74501-XKIBWMC NAIL, 6 OR MORE 02/29/2024 94646-GYZZIVT NAIL, 6 OR MORE 05/30/2024 50563-Fyzkqyyj Plate 02/27/2020 23193-Ephebjfe Plate 02/02/2023 44246-Steprdps Plate 03/12/2015 27807 I&D ABSCESS- SIMPLE,SINGLE 012 13749-IMPB SKIN LESIONS, OVER 4 03/12/19 16 87649-IXPL SKIN LESIONS, OVER 4 09/24/19 16 81992-STNS SKIN LESIONS, OVER 4 06/21/19 16 20638-EICE SKIN LESIONS, OVER 4 01/23/20 17 25907-MZXG SKIN LESIONS, OVER 4 10/17/19 17 34766-XVLM SKIN LESIONS, OVER 4 04/03/19 17 92880-RVUY SKIN LESIONS, OVER 4 07/08/19 17 65131-IUUR SKIN LESIONS, OVER 4 12/27/19 16 66125-WBVV SKIN LESIONS, OVER 4 02/25/19 19 73181-STAL SKIN LESIONS, OVER 4 11/03/19 18 48261-BPYK SKIN LESIONS, OVER 4 07/31/19 18 16363-MPZW SKIN LESIONS, OVER 4 05/01/19 18 44335-VRIW SKIN LESIONS, OVER 4 12/05/19 15 50529-CVHW SKIN LESIONS, OVER 4 09/05/19 15 09427-EOZE SKIN LESIONS, OVER 4 05/30/19 15 30522-LSEZ SKIN LESIONS, OVER 4 02/27/19 15 97065-WLOS SKIN LESIONS, OVER 4 11/22/19 14 89818-MTWW SKIN LESIONS, OVER 4 08/16/19 14 75486-LFLP SKIN LESIONS, OVER 4 05/10/19 14 98170-EAUK SKIN LESIONS, OVER 4 02/01/20 13 30282-CZWH SKIN LESIONS, 2 TO 4 10/29/19 13 85949-RBQK SKIN LESIONS, 2 TO 4 07/30/19 13 66784-DVND SKIN LESIONS, 2 TO 4 05/07/19 13 78787-CGII SKIN LESIONS, 2 TO 4 01/29/20 12 97044-JGWO SKIN LESIONS, 2 TO 4 11/06/19 12 12562-MVTU SKIN LESIONS, 2 TO 4 08/04/19 12 29178-HWJQ SKIN LESIONS, 2 TO 4 05/12/19 12 47672-VYUE SKIN LESIONS, 2 TO 4 03/07/19 20 21085-VBNO SKIN LESIONS, 2 TO 4 11/26/19 19 07986-ZFMH SKIN LESIONS, 2 TO 4 09/07/19 19 35681-JZQH SKIN LESIONS, 2 TO 4 06/01/19 19 86166-QGJK SKIN LESIONS, 2 TO 4 05/11/19 24 67042-QHFD SKIN LESIONS, 2 TO 4 11/12/19 24 83444-XHQX SKIN LESIONS, 2 TO 4 08/10/19 24 24406-FUXQ SKIN LESIONS, 2 TO 4 02/03/20 23 90890-GQGN SKIN LESIONS, 2 TO 4 10/24/19 23 99123-JRRZ SKIN LESIONS, 2 TO 4 07/18/19 54867-BQDF SKIN LESIONS, 2 TO 4 04/10/19 96174-BTFI SKIN LESIONS, 2 TO 4 12/17/19 78721-OJDU SKIN LESIONS, 2 TO 4 09/10/19 22 60041-ROGG SKIN LESIONS, 2 TO 4 04/30/19 97657-RCRX SKIN LESIONS, 2 TO 4 12/11/19 32331-RRML SKIN LESIONS, 2 TO 4 09/07/19 38210-GKAW SKIN LESIONS, 2 TO 4 05/29/19 21 43721-DDVX SKIN LESIONS, 2 TO 4 02/26/19 21 48948-LONB SKIN LESIONS, 2 TO 4 11/21/19 20 43228-XPCN SKIN LESIONS, 2 TO 4 05/31/19 25 63472-FUMV SKIN LESIONS, 2 TO 4 02/28/19 25 Next Appt Details Provider Name:Riley Rodrigues , 09/15/2024 09:00:00 AM, [address] [place], [address], Insurance Providers Payer Name Payer Address Payer Phone Subscriber Number Group Number Insured Name Patient Relationship to Insured Coverage Start Date Coverage End Date Medicare National Govt [employer] [address] [place] [address] [id number] Jossie Parson Self - patient is the insured [employer]) [address] [place] [address] [phone] [id number] Jossie Parson Self - patient is the insured Medical (General) History Medical History History ICD Code Cholesterol psoriasis osteoporosis cancer broken bones hypertension Diabetic type ll Surgical History Surgery Date(Month/Year) appendectomy brain surgery hip surgery hysterectomy back surgery 09/2019 Hospitalization History Reason Date(Month/Year) [facility]- rehab back sx 4 weeks [facility] for sliver on left leg stitches w ere done 2016 admitted to [facility] for a f all- DX- fracture back for 4 days then Kimber jacob 01/09/2016
[2024-08-15 13:58] LABS: Albumin Level 4.1 g/dL (3.5-5.0); Anion Gap 12 (12-20); Blood Urea Nitrogen 19 mg/dL (9-16); Calcium 10.2 mg/dL (8.4-10.2); Carbon Dioxide 27 mmol/L (22-29); Chloride 106 mmol/L (96-108); Estimated Glomerular Filt Rate > 60; Potassium 4.2 mmol/L (3.3-5.1); Sodium 141 mmol/L (135-145)
== END 2024-08-15 09:40 | disposition home or self-care (01) ==
LOC: HO.10HDL 09:39
PROVIDERS: Visit Provider Internal Medicine Endocrinology, Diabetes & Metabolism
DX: M81.0 Age-related osteoporosis without current pathological fracture (principal)
CPT/HCPCS: 36415; 80048; 82040

== ENCOUNTER 2024-08-22 11:35 | Outpatient (AMB) | payer MEDICARE, OTHER, SELFPAY ==
--- NOTE | 2024-08-22 11:39 | A.OFFVIS_ITS ---
Intake Visit Reasons: Osteoporosis Intake Note: Patient present today for Osteoporosis follow up. Neon Sign Erector Required: No Accompanied by: Spouse- Jose Allergies Penicillins (PENICILLINS) Allergy (Unknown, Verified 08/22/24 11:42) Swelling phenytoin (From DILANTIN) Allergy (Unknown, Verified 08/22/24 11:42) Hives Medication List - Last Reconciled 08/22/24 by Evaristo Douglas MD ascorbate calcium (vitamin C) 1,000 mg PO BID blood sugar diagnostic As directed buspirone 5 mg PO DAILY carvedilol 12.5 mg PO BID cholecalciferol (vitamin D3) 100 mcg (2 x 50 mcg (2,000 unit)) PO DAILY 30 days ciclopirox 0.77% appl topical BID cranberry 500 mg PO BID denosumab (Prolia) 60 mg subcut [id number] lisinopril 5 mg PO DAILY metformin ER 500 mg PO DAILY mupirocin 2% topical BID nystatin 1 appl topical QID oxybutynin chloride 5 mg PO BEDTIME simvastatin 20 mg PO BEDTIME sitagliptin phosphate (Januvia) 25 mg PO DAILY triamcinolone acetonide 0.025% appl topical BID PRN HPI Comments Details: 79 yo female today for fup visit, for osteoporosis management She is feeling well. She is wheelchair-bound and she had a is able to walk 30 steps with a walker and her help. She has had for vertebral fractures so far the last 1 was in 2019. Her last Prolia shot was on 02/06/2020 , 08/07/2019. 12/21/2018. Patient completed 2 years of Forteo 20 mcg daily since May 2016. She is still in wheel chair, she is more mobile now, she walk short distances with her walker, she is doing 20 min of stationary bike daily. Positive prior fractures L1 L2, L4 L5 fracture. Bisphosphonates use: 5 years Calcium intake: on multivitamin only. Vitamin D: 4000 . Herbal medications. none To have 2 extractions this week she is currently on Evenity 210 mg Q monthly Date of Service: 05/23/20 BONE DENSITOMETRY FINDINGS: AP SPINE L2-L4 (excluding L1): The data of L1-L4 has been changed to exclude the L1 vertebral body, because degenerative changes at this level may cause overestimation of lumbar spine density. Current: BMD 0.973 g/cm2, Z-score -0.5, T-score -1.9, osteopenia, 8.2% decrease from previous, 23.0% increase from baseline (<5% change is not significant). Prior: BMD 1.060 g/cm2. Baseline: BMD 0.791 g/cm2. LEFT FEMUR, NECK: Current: BMD 0.537 g/cm2, Z-score -1.9, T-score -3.6, osteoporosis. Prior: BMD 0.555 g/cm2. Baseline: BMD 0.719 g/cm2. LEFT FEMUR, TOTAL: Current: BMD 0.542 g/cm2, Z-score -2.3, T-score -3.7, osteoporosis, 9.5% decrease from previous, 27.2% decrease from baseline (<5% change is not significant). Prior: BMD 0.599 g/cm2. Baseline: BMD 0.745 g/cm2. Laboratory Tests 04/27/18 01/04/19 04/17/19 08:00 08:00 08:50 Creatinine Est GFR (Non-Af Amer) Calcium Alkaline Phosphatase Albumin N-Telopeptide X-linked 12 25-OH Vitamin D Total 45.4 Vit D 1,25-Dihyd Total 1,25 Dihydroxy Vit D2 1,25 Dihydroxy Vit D3 TSH 3rd Generation 0.93 PTH Intact Ur 24 Hour Volume Ur Creatinine mg/dL Ur Creatinine 24 Hour Ur Calcium 24 Hr Calcium/Creat 24 Hr Bone Specific Alk Phos 04/17/19 04/21/19 04/21/19 08:50 09:00 09:00 Creatinine Est GFR (Non-Af Amer) Calcium Alkaline Phosphatase Albumin N-Telopeptide X-linked 25-OH Vitamin D Total Vit D 1,25-Dihyd Total 56 1,25 Dihydroxy Vit D2 <8 1,25 Dihydroxy Vit D3 56 TSH 3rd Generation PTH Intact 44 Ur 24 Hour Volume 1675 Ur Creatinine mg/dL 47.58 Ur Creatinine 24 Hour 0.80 Ur Calcium 24 Hr 191 Calcium/Creat 24 Hr 239 Bone Specific Alk Phos 16.2 08/21/19 11:14 Creatinine 0.70 Est GFR (Non-Af Amer) > 60 Calcium 9.1 D Alkaline Phosphatase 137 H D Albumin 3.8 N-Telopeptide X-linked 25-OH Vitamin D Total Vit D 1,25-Dihyd Total 1,25 Dihydroxy Vit D2 1,25 Dihydroxy Vit D3 TSH 3rd Generation PTH Intact Ur 24 Hour Volume Ur Creatinine mg/dL Ur Creatinine 24 Hour Ur Calcium 24 Hr Calcium/Creat 24 Hr Bone Specific Alk Phos The patient is a 78-year-old female presenting with a follow-up for osteoporosis management and assessment of a recent fall-related injury. She currently receives Prolia injections for osteoporosis, the latest administered in February 2023. 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 Mother No problems noted. Social History Patient Tobacco Use Status: Former Tobacco user Tobacco use type: Cigarette Cigarettes Per Day: 20 Years Smoked: 12 Assessment & Plan Assessment & Plan (1) Osteoporosis: Code(s): M81.0 - Age-related osteoporosis without current pathological fracture Category: Medical Qualifiers: Osteoporosis type: age-related Presence of current pathological fracture: without current pathological fracture Qualified Code(s): M81.0 - Age- related osteoporosis without current pathological fracture Plan: Is a 78-year-old white female with a history of multiple vertebral fractures who has tried Forteo, bisphosphonate and Prolia with worsening bone density. She has had complete secondary workup in the past. She is currently on Prolia after transitioning from course of Evenity 1. Osteoporosis: The osteoporosis treatment involves continuing with Prolia injections, scheduled every 6 months next injection in2 wks . She has been on the Prolia for21/2 yrs Ongoing monitoring of bone health and calcium levels will guide any adjustments in therapy. Patient education regarding fall risks is essential. . The patient had an opportunity to ask questions regarding treatment plan. The patient expressed understanding and agreement with the above treatment plan. Orders: Orders XR DEXA axial skeleton Today M81.0 - Age-related osteoporosis without current pathological fracture Coding Level of Care Code Est Pt Level 3 (31060) Diagnoses Age-related osteoporosis without current pathological fracture M81.0 Osteoporosis type: age-related Presence of current pathological fracture: without current pathological fracture
--- OUTSIDE RECORDS SUMMARY | 2024-08-22 12:39 | XMS_ITS | Clinical Summary ---
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
--- OUTSIDE RECORDS SUMMARY | 2024-08-22 12:39 | XMS_ITS | Patient Health Record ---
[facility] Address [address] [place] [address] Care Team Providers Care Track Repair Supervisor Name Role Phone Nathan Nickerson MD Primary Care Provider Riley Otoole Unavailable [phone] Allergies Allergen (clinical drug ingredient) Drug/Non Drug [...] Problem Acquired hammer toe of right foot (176608721406 9105) Other hammer toe(s) (acquired), right foot (M20.41) Active confirmed Problem Acquired hammer toe of left foot (332646291623 9103) Other hammer toe(s) (acquired), left foot (M20.42) Active confirmed Problem Type 2 diabetes mellitus with diabetic polyneuropathy (E11.42) Active confirmed Vital Signs Blood pressure diastolic 60 mm Hg 05/30/2024 Height 5 ft 7 in in 05/30/2024 Blood pressure systolic 130 mm Hg 05/30/2024 Weight 160 lbs 05/30/2024 BMI 25.06 kg/m2 05/30/2024 Procedures Procedure Date Ordered Date Performed Result Body Sit e 00120-NYLBWYW NAIL, 6 OR MORE 11/12/2023 N/A 19729-KERK SKIN LESIONS, 2 TO 4 11/12/2023 N/A 29929-IKBNQVJ NAIL, 6 OR MORE 02/29/2024 N/A 10265-ZBLZ SKIN LESIONS, 2 TO 4 02/29/2024 N/A 06969-HLFDXEA NAIL, 6 OR MORE 05/30/2024 N/A 45568-LEED SKIN LESIONS, 2 TO 4 05/30/2024 N/A Encounters Encounter Location Date Provider [facility] [address] 11/12/2023 Riley Rodrigues Type 2 diabetes mellitus with diabetic polyneuropathy E11.42 and Tinea unguium B35.[address] [address] 02/29/2024 Rileyenrique Rodrigues Type 2 diabetes mellitus with diabetic polyneuropathy E11.42 ; Tinea unguium B35.1 ; Other hammer toe(s) (acquired), right foot M20.41 and Other hammer toe(s) (acquired), left foot M20.[address] [address] 05/30/2024 Riley Rodrigues Type 2 diabetes mellitus [...] Test Name Order Date Hemoglobin A1c 03/12/2015 28862-XEPJSZG NAIL, 6 OR MORE 03/12/2015 03847-AIUPWZP NAIL, 6 OR MORE 06/21/2015 08979-JHHPFME NAIL, 6 OR MORE 09/24/2015 76857-XAAYLWU NAIL, 6 OR MORE 12/27/2015 73231-QWUBXQV NAIL, 6 OR MORE 04/03/2016 45190-IKOVYGM NAIL, 6 OR MORE 07/07/2016 95744-UYFZDJN NAIL, 6 OR MORE 10/16/2016 33467-SKQLDCS NAIL, 6 OR MORE 01/22/2017 70380-YZBCGBU NAIL, 6 OR MORE 04/30/2017 76631-PEZBKNP NAIL, 6 OR MORE 07/30/2017 75052-DCPQUFY NAIL, 6 OR MORE 11/02/2017 42060-PHRQXVE NAIL, 6 OR MORE 02/25/2018 39077-TUIYAMD NAIL, 6 OR MORE 05/31/2018 02861-SNQQQQF NAIL, 6 OR MORE 09/06/2018 16015-DEVJOBH NAIL, 6 OR MORE 11/25/2018 42270-NXYSEJP NAIL, 6 OR MORE 03/07/2019 81024-ZLIHDDV NAIL, 6 OR MORE 11/11/2010 22758-IABYHUP NAIL, 6 OR MORE 02/03/2011 78362-FPBDRPA NAIL, 6 OR MORE 05/12/2011 12963-AYKISYQ NAIL, 6 OR MORE 08/04/2011 81995-ECOXNWQ NAIL, 6 OR MORE 11/06/2011 20503-HIJHGRK NAIL, 6 OR MORE 01/29/2012 33628-WGUFSGH NAIL, 6 OR MORE 05/06/2012 21951-ZLUYHVQ NAIL, 6 OR MORE 07/29/2012 42539-MLURUEG NAIL, 6 OR MORE 10/28/2012 63511-APBDFYV NAIL, 6 OR MORE 01/31/2013 77803-WQUYPPO NAIL, 6 OR MORE 05/09/2013 09131-PPJRKXY NAIL, 6 OR MORE 08/15/2013 62605-ELDUQTI NAIL, 6 OR MORE 11/21/2013 67474-CGAHFMC NAIL, 6 OR MORE 02/27/2014 73010-PSYGTEK NAIL, 6 OR MORE 05/29/2014 73672-CPSNHMG NAIL, 6 OR MORE 09/04/2014 81163-TVJEYPO NAIL, 6 OR MORE 12/04/2014 74137-WUISNVX NAIL, 6 OR MORE 11/21/2019 69285-NZYUIVV NAIL, 6 OR MORE 02/27/2020 26762-BUHPXDB NAIL, 6 OR MORE 05/28/2020 93115-WIJKJZV NAIL, 6 OR MORE 09/06/2020 63574-BMYCGWG NAIL, 6 OR MORE 12/10/2020 90267-DOWALVH NAIL, 6 OR MORE 04/29/2021 60709-HABEIXD NAIL, 6 OR MORE 09/09/2021 10933-QICGMSR NAIL, 6 OR MORE 12/16/2021 11983-DGDYHTO NAIL, 6 OR MORE 04/10/2022 21794-YRAMXNG NAIL, 6 OR MORE 07/17/2022 97329-FQUYBGO NAIL, 6 OR MORE 10/23/2022 43961-ZGXBVNI NAIL, 6 OR MORE 02/02/2023 69130-VARQHEC NAIL, 6 OR MORE 05/11/2023 10574-WRMCOFX NAIL, 6 OR MORE 08/10/2023 97523-RVXIZIA NAIL, 6 OR MORE 11/12/2023 61163-DICJNPV NAIL, 6 OR MORE 02/29/2024 17803-PSFDDXT NAIL, 6 OR MORE 05/30/2024 76874-Yhjefahu Plate 02/27/2020 46767-Qtpyytpd Plate 02/02/2023 29056-Cqzuzlle Plate 03/12/2015 00906 I&D ABSCESS- SIMPLE,SINGLE 012 17655-ZBSH SKIN LESIONS, OVER 4 03/12/19 16 01093-GRSG SKIN LESIONS, OVER 4 09/24/19 16 38248-LMKK SKIN LESIONS, OVER 4 06/21/19 16 92379-GUWJ SKIN LESIONS, OVER 4 01/23/20 17 52692-UHBF SKIN LESIONS, OVER 4 10/17/19 17 99120-JQAG SKIN LESIONS, OVER 4 04/03/19 17 74387-MJYV SKIN LESIONS, OVER 4 07/08/19 17 09749-IBOT SKIN LESIONS, OVER 4 12/27/19 16 98173-NQHG SKIN LESIONS, OVER 4 02/25/19 19 18358-OKEF SKIN LESIONS, OVER 4 11/03/19 18 67341-RSDY SKIN LESIONS, OVER 4 07/31/19 18 63358-VRWJ SKIN LESIONS, OVER 4 05/01/19 18 17436-YOZP SKIN LESIONS, OVER 4 12/05/19 15 30953-KMIL SKIN LESIONS, OVER 4 09/05/19 15 55807-OFTA SKIN LESIONS, OVER 4 05/30/19 15 78699-WWKY SKIN LESIONS, OVER 4 02/27/19 15 00098-VHMT SKIN LESIONS, OVER 4 11/22/19 14 02967-BBDT SKIN LESIONS, OVER 4 08/16/19 14 82839-PQKY SKIN LESIONS, OVER 4 05/10/19 14 78756-VDAO SKIN LESIONS, OVER 4 02/01/20 13 58021-NOOA SKIN LESIONS, 2 TO 4 10/29/19 13 42324-FOEF SKIN LESIONS, 2 TO 4 07/30/19 13 12769-ZPDG SKIN LESIONS, 2 TO 4 05/07/19 13 29634-DPFO SKIN LESIONS, 2 TO 4 01/29/20 12 14432-TKJH SKIN LESIONS, 2 TO 4 11/06/19 12 40193-XJHI SKIN LESIONS, 2 TO 4 08/04/19 12 18945-JHAH SKIN LESIONS, 2 TO 4 05/12/19 12 07207-CFNK SKIN LESIONS, 2 TO 4 03/07/19 20 47362-JRCG SKIN LESIONS, 2 TO 4 11/26/19 19 49839-RWRP SKIN LESIONS, 2 TO 4 09/07/19 60425-LNZP SKIN LESIONS, 2 TO 4 06/01/19 19 26623-QWGO SKIN LESIONS, 2 TO 4 05/11/19 24 06073-ELPU SKIN LESIONS, 2 TO 4 11/12/19 24 38154-ILSW SKIN LESIONS, 2 TO 4 08/10/19 24 09029-KCBO SKIN LESIONS, 2 TO 4 02/03/20 23 82923-DIBI SKIN LESIONS, 2 TO 4 10/24/19 23 47017-GJQY SKIN LESIONS, 2 TO 4 07/18/19 23 57554-SJWM SKIN LESIONS, 2 TO 4 04/10/19 53936-MZLC SKIN LESIONS, 2 TO 4 12/17/19 37736-NYVC SKIN LESIONS, 2 TO 4 09/10/19 61470-ZWVX SKIN LESIONS, 2 TO 4 04/30/19 02356-MGDB SKIN LESIONS, 2 TO 4 12/11/19 08160-FMPY SKIN LESIONS, 2 TO 4 09/07/19 32346-PXXC SKIN LESIONS, 2 TO 4 04/13/20 21 11117-UFJF SKIN LESIONS, 2 TO 4 02/26/19 21 17394-YTFG SKIN LESIONS, 2 TO 4 11/21/19 20 74742-ACEO SKIN LESIONS, 2 TO 4 05/31/19 25 76413-IJXV SKIN LESIONS, 2 TO 4 02/28/19 25 Next Appt Details Provider Name:Riley Rodrigues , 09/15/2024 09:00:00 AM, [address] [facility], [place], [address], Insurance Providers Payer Name Payer Address Payer Phone Subscriber Number Group Number Insured Name Patient Relationship to Insured Coverage Start Date Coverage End Date Medicare National [facility] [employer] [address] [place] [address] [id number] Jossie Parson Self - patient is the insured [employer] [address] [place] [address] [id number] Jossie Parson Self - patient is the insured Medical (General) History Medical History History ICD Code Cholesterol psoriasis osteoporosis cancer broken bones hypertension Diabetic type ll Surgical History Surgery Date(Month/Year) appendectomy brain surgery hip surgery hysterectomy back surgery 09/2019 Hospitalization History Reason Date(Month/Year) [facility]- rehab back sx 4 weeks [facility] ER for sliver on left leg stitches w ere done 2016 admitted to [facility] for a f all- DX- fracture back for 4 days then Kimber jacob 01/09/2016
--- OUTSIDE RECORDS SUMMARY | 2024-08-22 12:39 | XMS_ITS | Patient Health Record ---
Author Organization [facility] Address [address] [place] [address] Care Team Providers Care Accounting Intern Name Role Phone Nathan Nickerson MD Primary Care Provider Evaristo Olivas [phone] Allergies Allergen (clinical drug ingredient) Drug/Non Drug [...] Problem Status W/U Status Risk Notes Problem 822380667 Encounter for screening for malignant neoplasm of colon (Z12.11) Active confirmed Problem 778012697474674 Preprocedural examination (Z01.818) Active confirmed Problem 338478405 Family history o f colon cancer (Z80.0) Active confirmed Problem Abnormal feces (555152791) Heme + stool (R19.5) Active confirmed Problem 331557527 Long-term use of high-risk medication (Z79.899) Active confirmed Problem Diverticulosis of colon (507897738) Diverticulosis of colon (K57.30) Active confirmed Plan Of Treatment Pending Test Test Name Order Date Pathology 11/03/2021 Future Test Test Name Order Date COLONOSCOPY 03/17/2018 COLONOSCOPY 10/09/2021 Insurance Providers Payer Name Payer Address Payer Phone Subscriber Number Group Number Insured Name Patient Relationship to Insured Coverage Start Date Coverage End Date MEDICARE OF [place] [address] [place] [address] [id number] BIPIN SLATER Self - patient is the insured [facility] [employer] [address] [place] [address] [id number] BIPIN SLATER Self - patient is the insured Medical (General) History Medical History History ICD Code NIDDM Denies [place],CVA,Lung disease,renal disease Neg. 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
== END 2024-08-22 12:14 | disposition home or self-care (01) ==
LOC: HO.ENCR 11:36
PROVIDERS: PCP Internal Medicine; Visit Provider Internal Medicine Endocrinology, Diabetes & Metabolism
DX: M81.0 Age-related osteoporosis without current pathological fracture (principal)
CPT/HCPCS: 99213

== ENCOUNTER → 2024-08-22 11:35 | Outpatient (BNVA) | payer MEDICARE, OTHER, SELFPAY | PROVIDERS: PCP Internal Medicine; Visit Provider Internal Medicine Endocrinology, Diabetes & Metabolism | DX: M81.0 Age-related osteoporosis without current pathological fracture (principal); Z99.3 Dependence on wheelchair; Z87.310 Personal history of (healed) osteoporosis fracture; Z79.83 Long term (current) use of bisphosphonates; Z79.899 Other long term (current) drug therapy | CPT/HCPCS: 99212 ==

== ENCOUNTER 2024-09-05 10:59 | Outpatient (AMB) | payer MEDICARE, OTHER, SELFPAY ==
--- NOTE | 2024-09-05 11:14 | AM.OFFVISNUR ---
Intake Visit Reasons: Prolia Allergies Penicillins (PENICILLINS) Allergy (Unknown, Verified 08/22/24 11:42) Swelling phenytoin (From DILANTIN) Allergy (Unknown, Verified 08/22/24 11:42) Hives Office Meds Prolia 60 mg/mL subcutaneous syringe Performing Provider: Evaristo Douglas MD [place] [facility] [place] Administered by: Earnestine Zacarias RN on 09/05/24 11:14 Dose Route Admin Location Dispensed Lot Number Expiration Date [facility] Underwriting Account Representative 60 mg subcut Left upper arm 1 mL [id number] 02/14/27 54270-459-89 [employer] Total Dispensed Waste 1 mL 0 % Comments: Pt accompanied by . No adverse reactions reported from previous injection. Pt tolerated injection well. Pt scheduled for next appt in 6 months. Assessment & Plan Assessment & Plan Orders: Orders AMB Denosumab Injection Practice Supplied Today M81.0 - Age-related osteoporosis without current pathological fracture Coding
--- OUTSIDE RECORDS SUMMARY | 2024-09-05 12:16 | XMS_ITS | Patient Health Record ---
Author Organization [facility] Address [address] [place] [address] Care Team Providers Care Registered Nurse Post Partum Name Role Phone Nathan Nickerson MD Primary Care Provider Evaristo Olivas [phone] Allergies Allergen (clinical drug ingredient) Drug/Non Drug [...] Problem Status W/U Status Risk Notes Problem 602438622 Encounter for screening for malignant neoplasm of colon (Z12.11) Active confirmed Problem 848924617944422 Preprocedural examination (Z01.818) Active confirmed Problem 273387148 Family history o f colon cancer (Z80.0) Active confirmed Problem Abnormal feces (174733240) Heme + stool (R19.5) Active confirmed Problem 591472805 Long-term use of high-risk medication (Z79.899) Active confirmed Problem Diverticulosis of colon (210657404) Diverticulosis of colon (K57.30) Active confirmed Plan Of Treatment Pending Test Test Name Order Date Pathology 11/03/2021 Future Test Test Name Order Date COLONOSCOPY 03/17/2018 COLONOSCOPY 10/09/2021 Insurance Providers Payer Name Payer Address Payer Phone Subscriber Number Group Number Insured Name Patient Relationship to Insured Coverage Start Date Coverage End Date MEDICARE OF [place] [address] [place] [address] [id number] BIPIN SLATER Self - patient is the insured [facility] [employer] [address] [place] [address] [id number] BIPIN SLATER Self - patient is the insured Medical (General) History Medical History History ICD Code NIDDM Denies [place],CVA,Lung disease,renal disease Neg. 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
--- OUTSIDE RECORDS SUMMARY | 2024-09-05 12:16 | XMS_ITS | Encounter Summary ---
Author Organization [facility] Address [address] [place] [address] Phone Care Team Providers Care Sleeve Setter Name Role Phone Nathan Nickerson MD Primary Care Provider [phone] Nathan Nickerson MD Unavailable Alpa Marshall Unavailable [phone] Александр Hill MD Unavailable [email or web address] Franko Luciano MD Unavailable [phone] Ginger Mcdonald MD Unavailable [phone] Monique Lea MD, MPH Unavailable Brock Rodriguez MD Unavailable Mayra Farrell Unavailable Brock Rodriguez MD Unavailable Encounter Details Date Type Department Care Team (Late st Contact Info) Description 05/18/2016 Procedure Pass [facility] FELIC[facility]AS, Robb [address] [facility] [place] [address] Social History Tobacco Use Types Packs/Day Years Used Date Smoking Tobacco: Former Comments:Quit smokin02/15 Comments Unknown Sex and Gender Information Value Date Recorded Sex Assigned at Not on file Legal Sex Female 6:28 PM EST Gender Identity Not on file Sexual Orientation Not on file documented as of this encounter Plan of Treatment Upcoming Encounters Date Type Department Care Team (Late st Contact Info) Description 12/01/2024 1:30 PM EDT Office Visit [facility] Internal Medicine [address] [place] [address] Nathan Nickerson MD [address] [place], [place] 06/26/2025 11:30 AM EDT Office Visit [facility], Department of Neurology [address] [place] [address] Monique Lea MD, MPH [address] [place] [phone] [email or web address] documented as of this encounter Visit Diagnoses Not on filedocumented in this encounter Additional Health Concerns Infection Onset Date Last Indicated Resolved Time CoV-Risk Comment:SNF dc 10/17 full PPE for 14 days 10/19/2019 10/19/2019 11/01/2019 1:24 AM E DT COVID-19 11/21/2022 11/21/2022 12/12/2022 1:21 AM EDT documented as of this encounter Care Teams Sleeve Setter Relationship Specialty Start Date End Date Nathan Nickerson MD [address] [place] [address] PCP - General 08/15/13 Nathan Nickerson MD [address] [place] [address] Insurance Assigned Provider 05/22/23 Alpa Marshall [address] [place] [address] [email or web address] Leader 12/09/16 06/28/17 Александр Hill MD [email or web address] Primary Oncologist Neurology 04/26/18 Franko Luciano MD [address] [place] [address] Internal Medicine 03/31/19 Ginger Mcdonald MD [address] [place] [address] Neurosurgery 08/21/19 Monique Lea MD, MPH [address] [place] [phone] [email or web address] 08/22/19 Brock Rodriguez MD [address] [place] [phone] [email or web address] Hematology 11/17/19 Mayra Farrell PA [address] [address] Unknown Provider Specialty 12/01/19 Brock Rodriguez MD [address] [place] [phone] [email or web address] Hematology 12/04/19 documented as of this encounter Additional Source Comments The information contained in this document represents components of the legal health record. It is not the complete legal health record.[facility]
--- OUTSIDE RECORDS SUMMARY | 2024-09-05 12:16 | XMS_ITS | Patient Health Record ---
[facility] Organization [facility] Address [address] [place] [address] Care Team Providers Care Dipper Machine Operator Name Role Phone Nathan Nickerson MD Primary Care Provider Riley Otoole Unavailable [phone] Allergies Allergen (clinical drug ingredient) Drug/Non Drug [...] Administration Date Status Comme nts Influenza Unknown 11/18/2015 Administered Influenza Unknown 12/22/2016 Administered Influenza Unknown 11/15/2017 Administered Influenza Unknown 11/11/2021 Administered Pneumococcal Unknown 11/20/2020 Administered Flu vaccine no Preserv 3 and > Unknown 12/17/2014 Administered COVID-19 Moderna Vaccine Unknown 2021 Administere d 1st 04/02/2020 2nd 04/30/2020 3rd 12/20/2020 Social History Tobacco Use: Social History Observation [...] Problem Acquired hammer toe of right foot (0304819148851243 ) Other hammer toe(s) (acquired), right foot (M20.41) Active confirmed Problem Acquired hammer toe of left foot (3353897424212964 ) Other hammer toe(s) (acquired), left foot (M20.42) Active confirmed Problem Polyneuropathy due to type 2 diabetes mellitus (709480733) Type 2 diabetes mellitus with diabetic polyneuropathy (E11.42) Active confirmed Vital Signs Blood pressure diastolic 60 mm Hg 05/30/2024 Height 5 ft 7 in in 05/30/2024 Blood pressure systolic 130 mm Hg 05/30/2024 Weight 160 lbs 05/30/2024 BMI 25.06 kg/m2 05/30/2024 Procedures Procedure Date Ordered Date Performed Result Body Sit e 34613-LTZQVXI NAIL, 6 OR MORE 11/12/2023 N/A 76835-HIZD SKIN LESIONS, 2 TO 4 11/12/2023 N/A 98664-DTVGSXU NAIL, 6 OR MORE 02/29/2024 N/A 58094-MEOK SKIN LESIONS, 2 TO 4 02/29/2024 N/A 37079-PFXKEUQ NAIL, 6 OR MORE 05/30/2024 N/A 62142-RCBL SKIN LESIONS, 2 TO 4 05/30/2024 N/A Encounters Encounter Location Date Provider Diagnosis [address] [address] 11/12/2023 Riley Rodrigues Type 2 diabetes mellitus with diabetic polyneuropathy E11.42 and Tinea unguium B35.[address] [address] 02/29/2024 Rileyenrique Rodrigues Type 2 diabetes mellitus with diabetic polyneuropathy E11.42 ; Tinea unguium B35.1 ; Other hammer toe(s) (acquired), right foot M20.41 and Other hammer toe(s) (acquired), left foot M20.[address] [address] 05/30/2024 Riley Rodrigues Type 2 diabetes mellitus [...] Test Name Order Date Hemoglobin A1c 03/12/2015 54285-HTFKTZZ NAIL, 6 OR MORE 03/12/2015 12950-HYGSWWR NAIL, 6 OR MORE 06/21/2015 09305-EYVFUGZ NAIL, 6 OR MORE 09/24/2015 49617-NVGMKTU NAIL, 6 OR MORE 12/27/2015 94825-HADEYMP NAIL, 6 OR MORE 04/03/2016 53624-SGNZABK NAIL, 6 OR MORE 07/07/2016 12524-WVLXFPX NAIL, 6 OR MORE 10/16/2016 19697-ABYVZAL NAIL, 6 OR MORE 01/22/2017 48291-CGQSHKI NAIL, 6 OR MORE 04/30/2017 32937-YUUPLKH NAIL, 6 OR MORE 07/30/2017 70936-NWWUUUN NAIL, 6 OR MORE 11/02/2017 21369-CLAQSQK NAIL, 6 OR MORE 02/25/2018 77744-ZBICCGR NAIL, 6 OR MORE 05/31/2018 93127-ENIAYLU NAIL, 6 OR MORE 09/06/2018 52614-KVAAMDX NAIL, 6 OR MORE 11/25/2018 65745-PRBJGBI NAIL, 6 OR MORE 03/07/2019 73808-KHBUDJI NAIL, 6 OR MORE 11/11/2010 49265-YMUZMHW NAIL, 6 OR MORE 02/03/2011 71697-RMLTKKR NAIL, 6 OR MORE 05/12/2011 79492-CFKLYQW NAIL, 6 OR MORE 08/04/2011 64384-OGCGYGI NAIL, 6 OR MORE 11/06/2011 78175-DBPCNCO NAIL, 6 OR MORE 01/29/2012 75900-TUBHNGO NAIL, 6 OR MORE 05/06/2012 22069-FVPOJXV NAIL, 6 OR MORE 07/29/2012 59145-GDDORZT NAIL, 6 OR MORE 10/28/2012 73684-WZOJQJP NAIL, 6 OR MORE 01/31/2013 49123-QQMVOQN NAIL, 6 OR MORE 05/09/2013 77278-UFYGXZG NAIL, 6 OR MORE 08/15/2013 77714-LNZTBCS NAIL, 6 OR MORE 11/21/2013 95428-VODZVBB NAIL, 6 OR MORE 02/27/2014 34495-MANQIPA NAIL, 6 OR MORE 05/29/2014 93572-OOWZNBV NAIL, 6 OR MORE 09/04/2014 74738-BKISSSS NAIL, 6 OR MORE 12/04/2014 02574-MFSFSDQ NAIL, 6 OR MORE 11/21/2019 87105-UYPWBSY NAIL, 6 OR MORE 02/27/2020 75606-KGULDGO NAIL, 6 OR MORE 05/28/2020 92863-HBWWFSW NAIL, 6 OR MORE 09/06/2020 85314-IHJYXLO NAIL, 6 OR MORE 12/10/2020 79919-EJJKSHI NAIL, 6 OR MORE 04/29/2021 42667-XRVKQER NAIL, 6 OR MORE 09/09/2021 31965-BRZYUUX NAIL, 6 OR MORE 12/16/2021 17354-OSKYQSK NAIL, 6 OR MORE 04/10/2022 04352-IEMFCSM NAIL, 6 OR MORE 07/17/2022 35383-GVVXNFW NAIL, 6 OR MORE 10/23/2022 04643-DWLLQLF NAIL, 6 OR MORE 02/02/2023 58468-LVANREU NAIL, 6 OR MORE 05/11/2023 41094-ODMMSVB NAIL, 6 OR MORE 08/10/2023 42907-TGZRDTN NAIL, 6 OR MORE 11/12/2023 54667-FDKKCMR NAIL, 6 OR MORE 02/29/2024 96409-HORHYKI NAIL, 6 OR MORE 05/30/2024 59864-Dvwnosug Plate 02/27/2020 35773-Btbzhigt Plate 02/02/2023 89096-Dpajolsu Plate 03/12/2015 92614 I&D ABSCESS- SIMPLE,SINGLE 012 11536-ZYUR SKIN LESIONS, OVER 4 03/12/19 16 17544-FXMS SKIN LESIONS, OVER 4 09/24/19 16 18753-ATIA SKIN LESIONS, OVER 4 06/21/19 16 63372-TFOT SKIN LESIONS, OVER 4 01/23/20 17 60837-SQKB SKIN LESIONS, OVER 4 10/17/19 17 88136-EFCY SKIN LESIONS, OVER 4 04/03/19 17 80989-AHIE SKIN LESIONS, OVER 4 07/08/19 17 08745-PJIT SKIN LESIONS, OVER 4 12/27/19 16 86061-ZLDO SKIN LESIONS, OVER 4 02/25/19 19 65120-WVUV SKIN LESIONS, OVER 4 11/03/19 18 98289-HZPD SKIN LESIONS, OVER 4 07/31/19 18 87414-CIHE SKIN LESIONS, OVER 4 05/01/19 18 09162-TFMV SKIN LESIONS, OVER 4 12/05/19 15 00259-WMHK SKIN LESIONS, OVER 4 09/05/19 15 62146-FHTV SKIN LESIONS, OVER 4 05/30/19 15 45615-YOMN SKIN LESIONS, OVER 4 02/27/19 15 65700-JXJG SKIN LESIONS, OVER 4 11/22/19 14 90362-QPJB SKIN LESIONS, OVER 4 08/16/19 14 71814-OZKQ SKIN LESIONS, OVER 4 05/10/19 14 01676-JBQM SKIN LESIONS, OVER 4 02/01/20 13 83067-BIUZ SKIN LESIONS, 2 TO 4 10/29/19 13 24109-SNTU SKIN LESIONS, 2 TO 4 07/30/19 13 88968-USJP SKIN LESIONS, 2 TO 4 05/07/19 13 97020-NITY SKIN LESIONS, 2 TO 4 01/29/20 12 03880-PPBK SKIN LESIONS, 2 TO 4 11/06/19 12 01004-NESF SKIN LESIONS, 2 TO 4 08/04/19 12 57381-XLWO SKIN LESIONS, 2 TO 4 05/12/19 12 34732-LNWF SKIN LESIONS, 2 TO 4 03/07/19 20 88060-OPLN SKIN LESIONS, 2 TO 4 11/26/19 19 74103-XVDH SKIN LESIONS, 2 TO 4 09/07/19 19 12881-WJYD SKIN LESIONS, 2 TO 4 06/01/19 19 08706-RCWC SKIN LESIONS, 2 TO 4 05/11/19 24 08850-GWEF SKIN LESIONS, 2 TO 4 11/12/19 24 18751-OKYO SKIN LESIONS, 2 TO 4 08/10/19 24 28077-EYMR SKIN LESIONS, 2 TO 4 02/03/20 23 51969-YAPH SKIN LESIONS, 2 TO 4 10/24/19 23 60429-CGWP SKIN LESIONS, 2 TO 4 07/18/19 47556-QXTM SKIN LESIONS, 2 TO 4 04/10/19 96954-UJBI SKIN LESIONS, 2 TO 4 12/17/19 61417-BUTK SKIN LESIONS, 2 TO 4 09/10/19 22 24001-MQVC SKIN LESIONS, 2 TO 4 04/30/19 90745-KWXW SKIN LESIONS, 2 TO 4 12/11/19 35655-CBSS SKIN LESIONS, 2 TO 4 09/07/19 16796-ZUNC SKIN LESIONS, 2 TO 4 05/29/19 21 11753-CJEP SKIN LESIONS, 2 TO 4 02/26/19 21 77589-QVZJ SKIN LESIONS, 2 TO 4 11/21/19 20 39750-XTYE SKIN LESIONS, 2 TO 4 05/31/19 25 90106-NCDX SKIN LESIONS, 2 TO 4 02/28/19 25 Next Appt Details Provider Name:Riley Rodrigues , 09/15/2024 09:00:00 AM, [address] [place], [address], Insurance Providers Payer Name Payer Address Payer Phone Subscriber Number Group Number Insured Name Patient Relationship to Insured Coverage Start Date Coverage End Date Medicare National Govt [employer] [address] [place] [address] [id number] Jossie Parson Self - patient is the insured 1 [employer]) [address] [place] [address] [id number] Jossie Parson Self - patient is the insured Medical (General) History Medical History History ICD Code Cholesterol psoriasis osteoporosis cancer broken bones hypertension Diabetic type ll Surgical History Surgery Date(Month/Year) appendectomy brain surgery hip surgery hysterectomy back surgery 09/2019 Hospitalization History Reason Date(Month/Year) [facility]- [facility]hab back sx 4 weeks [facility] on left leg stitches w ere done 2016 admitted to [facility] for a f all- DX- fracture back for 4 days then Kimber jacob 01/09/2016
--- OUTSIDE RECORDS SUMMARY | 2024-09-05 12:16 | XMS_ITS | Clinical Summary ---
Author Organization [facility] ity Address [address] [place] [address] Care Team Providers Care Inspector Metal Can Name Role Phone Nathan Nickerson MD Primary Care Provider [phone] Social History Tobacco Use Types Packs/Day Years [...] 2020 COVID-19 Vaccine (2023-2 5 season) 2023 Depression Screening 02/16/2024 Influenza Vaccine (#1) 2024 HIB Vaccines Aged [...] Documents on File Type Date Recorded Patient X Ray Developing Machine Operator Expl anation Health Care Decision (hx) 08/28/2019 AD BOOTH DIRECTIVE Health Care Decision (hx) 08/23/2019 AD BOOTH DIRECTIVE Care Teams Inspector Metal Can Relationship Specialty Start Date End Date Nathan Nickerson MD [address] [place] [address] PCP - General Internal Medicine 08/17/19
== END 2024-09-05 11:21 | disposition home or self-care (01) ==
LOC: HO.ENCR 10:59
PROVIDERS: PCP Internal Medicine; Visit Provider Internal Medicine Endocrinology, Diabetes & Metabolism
DX: M81.0 Age-related osteoporosis without current pathological fracture (principal)

== ENCOUNTER → 2024-09-05 10:59 | Outpatient (BNVA) | payer MEDICARE, OTHER, SELFPAY | PROVIDERS: PCP Internal Medicine; Visit Provider Internal Medicine Endocrinology, Diabetes & Metabolism | DX: M81.0 Age-related osteoporosis without current pathological fracture (principal) | CPT/HCPCS: 96372; J0897 ==

== ENCOUNTER 2024-10-24 12:26 | Outpatient (REF) | payer MEDICARE, OTHER, SELFPAY ==
--- OUTSIDE RECORDS SUMMARY | 2024-01-05 13:21 | XMS_ITS | Encounter Summary ---
Author Organization [facility] Address [address] [place] [phone] Phone Care Team Providers Care Accounting Methods Analyst Name Role Phone Nathan Nickerson MD Primary Care Provider Nathan Nickerson MD Unavailable Александр Hill MD Unavailable Franko Luciano MD Unavailable Ginger Mcdonald MD Unavailable [phone] Monique Lea MD, MPH Unavailable [phone] Brock Rodriguez MD Unavailable Mayra Farrell Unavailable Brock Rodriguez MD Unavailable Encounter Details Date Type Department Care Team (Late st Contact Info) Description 01/05/2024 12:21 PM EST Hospital Encounter [facility] [address] [place] [id number] Jennifer Dickens CNP [address] [place] [phone] Social History Tobacco Use Types Packs/Day Years Used Date Smoking Tobacco: Former Cigarettes 1 16 0 02/15/1959 - 02/15/1975 Smokeless Tobacco: Never Alcohol Use Standard Drinks/Week Comments Not Currently 1 (1 standard drink = 0.6 oz pur e alcohol) quit 2019 Education Answer Date Recorded Are you interested in more education? Not on philippe e 06/21/2022 Are you concerned about learning? Not on file 06/21/2022 No 06/21/2022 No 06/21/2022 Digital Access Answer Date Recorded No 07/07/2022 No 07/07/2022 Reliable internet access at home? Not on file 07/07/2022 Device with a working camera? Not on file Intimate Partner Violence Answer Date R ecorded Denied Basic Needs Not on file 04/23/2023 In the past 12 months have y ou been in a relationship with a person who hurts, threatens, or tries to control you? No 04/23/2023 Worried food would run out Not on file 04/22 In the past 12 months have y ou been in a relationship with a person who hurts, threatens, or tries to control you? No 04/23/2023 Comments No Sex and Gender Information Value Date Recorded Sex Assigned at Not on file Legal Sex Female 6:28 PM EST Gender Identity Not on file Sexual Orientation Not on file documented as of this encounter Plan of Treatment Upcoming Encounters Date Type Department Care Team (Late st Contact Info) Description 12/01/2024 1:30 PM EDT Office Visit [facility] Internal Medicine [address] [place] [address] Nathan Nickerson MD [address] [place] [address] 06/26/2025 11:30 AM EDT Office Visit [facility], Department of Neurology [address] [place] [address] Monique Lea MD, MPH [address] [place] [id number] [email or web address] documented as of this encounter Procedures Procedure Name Priority Date/Time Associated Diagnosis Comments XR FOOT 2 VIEWS (LEFT) Urgent/patient waiting 01/05/2024 12:44 PM EST Pain and swelling of toe of left foot documented in this encounter Results * XR FOOT 2 VIEWS (LEFT) (01/05/2024 12:44 PM EST) Anatomical Region Laterality Modality Foot Left Computed Radiogr aphy 01/05/2024 12:5 0 PM EST Impressions 01/05/2024 12:58 PM EST Cortical irregularity at the base of the third and fourth metatarsals, possibly non-displaced fractures given overlying soft tissue edema. No malalignment. ATTESTATION: Elias Schneider as teaching physician, have reviewed the images for this case and if necessary edited the report originally created by Edith Aleman. Narrative 01/05/2024 12:58 PM EST XR FOOT 2 VIEWS (LEFT) Referring clinician's provided indication for this examination in Epic: Pain; Trauma; Limited mobility, transferring to car yesterday banging her foot question on the walker swelling dorsal lateral aspect of foot, pain second digit COMPARISON: None FINDINGS: Cortical irregularity at the lateral aspect of the bases of the third and fourth metatarsals. Normal alignment. Normal joint spaces. Inferior calcaneal spur. Lateral mid foot soft tissue edema. Diffuse osteopenia. Procedure Note Elias Mcdaniel MD - 01/05/2024 XR FOOT 2 VIEWS (LEFT) Referring clinician's provided indication for this examination in [facility]:Pain; Trauma; Limited mobility, transferring to car yesterday banging herfoot question on the walker swelling dorsal lateral aspect of foot, painsecond digit COMPARISON: None FINDINGS: Cortical irregularity at the lateral aspect of the bases of the third andfourth metatarsals. Normal alignment. Normal joint spaces. Inferiorcalcaneal spur. Lateral mid foot soft tissue edema. Diffuse osteopenia. IMPRESSION: Cortical irregularity at the base of the third and fourth metatarsals,possibly non-displaced fractures given overlying soft tissue edema. Nomalalignment. ATTESTATION: I, Elias Mcdaniel as teaching physician, have reviewed the imagesfor this case and if necessary edited the report originally created byEdith Aleman. us Jennifer Dickens FARM DEMONSTRATOR IMG XR LOWER EXTREMITY Marguerite l Result documented in this encounter Visit Diagnoses Not on filedocumented in this encounter Additional Health Concerns Assessment Noted Time PHQ-2 Depression Total Score: 0 04/23/19 24 1:51 PM EST documented as of this encounter Care Teams Accounting Methods Analyst Relationship Specialty Start Date End Date Nathan Nickerson MD [address] [place] [address] [email or web address] PCP - General 08/15/13 Nathan Nickerson MD [address] [place] [address] [email or web address] Insurance Assigned Provider 05/22/23 Александр Hill MD [address] [place] [phone] [email or web address] Primary Oncologist Neurology 04/26/18 Franko Luciano MD [address] [place] [address] Internal Medicine 03/31/19 Ginger Mcdonald MD [address] [place] [id number] Neurosurgery 08/21/19 Monique Lea MD, MPH [address] [place] [id number] [email or web address] [email or web address] 08/22/19 Brock Rodriguez MD [address] [place] [id number] [email or web address] [email or web address] 11/17/19 Mayra Farrell PA [address] [facility] [address] [place] [address] Unknown Provider Specialty 12/01/19 Brock Rodriguez MD [address] [place] [address] [email or web address] Hematology 12/04/19 documented as of this encounter Additional Source Comments The information contained in this document represents components of the legal health record. It is not the complete legal health record.[facility]
--- NOTE | ~2024-10-24 | MM_ITS ---
EXAMINATION: DXA BONE DENSITY AXIAL HISTORY: M81.0 - Age-related osteoporosis without current pathological fracture TECHNIQUE: [employer] Dual energy absorptiometry (DEXA) of the lumbar spine, total left hip, and femoral neck was performed. COMPARISON: Comparison is made with the prior examination dated 07/17/2019.. FINDINGS: The bone mineral density of the lumbar spine is 1.141 g/cm2, corresponding to a T-score of -0.2, and a Z-score of 1.2. This is indicative of normal bone mineral density. This represents a BMD change of -3.1% compared to the prior exam. This is not statistically significant. The bone mineral density of the left total hip is 0.547 g/cm2, corresponding to a T-score of -3.7, and a Z-score of -2.0. This is indicative of osteoporosis. This represents a BMD change of -3.7% compared to the prior exam. This is not statistically significant. The bone mineral density of the left femoral neck is 0.497 g/cm2, corresponding to a T-score of -3.9, and a Z-score of -2.0. This is indicative of osteoporosis. This represents a BMD change of -5.9% compared to the prior exam. FRACTURE RISK: The FRAX index suggests a ten year probability of major osteoporotic fracture of 72.7%, and of hip fracture 64.0%. MM/XR DEXA axial skeleton IMPRESSION: Based on bone mineral density, and according to World Health Organization (WHO) criteria, the diagnosis is consistent with osteoporosis. Statistically, 68% of repeat scans fall within 1 SD (+/- 0.010 g/cm2 for AP spine L1-L4) and 1 SD (+/- 0.012 g/cm2 for femur total) FRAX is a trademark of the [employer]'s [employer] Metabolic Bone Disease, a World Health Organization (WHO) Collaborating Center. Electronically signed by: Evaristo Abad MD 10/24/2024 01:21 PM EDT
--- NOTE | ~2024-10-24 | MM_ITS ---
EXAMINATION: MM SCREENING DIGITAL BREAST TOMOSYNTHESIS, BILATERAL CLINICAL INFORMATION: Screening. Asymptomatic. COMPARISON: Mammography: Comparison is made with available priors TECHNIQUE: Digital breast mammography with tomosynthesis is performed in both the craniocaudal and mediolateral oblique views along with computer-aided detection (CAD). FINDINGS: Limited imaging as patient had some physical limitations. There are scattered areas of fibroglandular density (ACR BI-RADS breast composition Category b). There are no significant masses, abnormal calcifications, or other abnormalities. MM/MM tomosynthesis screening BI IMPRESSION: No mammographic evidence of malignancy. ASSESSMENT: BI-RADS BI-RADS 1 - Negative RECOMMENDATION: Routine annual mammography screening. 1 year F/U This examination should not preclude the clinical evaluation of a suspicious palpable abnormality. This patient's information was entered into a reminder system with a target due date for their next mammogram. Electronically signed by: Kia Farmer DO 10/30/2024 12:57 PM EDT
--- OUTSIDE RECORDS SUMMARY | 2024-10-24 14:48 | XMS_ITS | Encounter Summary ---
Author Organization [facility] Address [address] [place] [address] Phone Care Team Providers Care Service Vehicle Operator Name Role Phone Nathan Nickerson MD Primary Care Provider Nathan Nickerson MD Unavailable Alpa Marshall Unavailable [phone] Александр Hill MD Unavailable Franko Luciano MD Unavailable Ginger Mcdonald MD Unavailable [phone] Monique Lea MD, MPH Unavailable [phone] Brock Rodriguez MD Unavailable Mayra Farrell Unavailable Brock Rodriguez MD Unavailable Encounter Details Date Type Department Care Team (Late st Contact Info) Description 05/18/2016 Procedure Pass [facility], [place] [address] [facility], 2nd [place] [address] Social History Tobacco Use Types Packs/Day Years [...] Description 12/01/2024 1:30 PM EDT Office Visit [facility] Internal Medicine [address] [place] [address] Nathan Nickerson MD [address] [place] [address] 06/26/2025 11:30 AM EDT Office Visit [facility], Department of Neurology [address] [place] [address] Monique Lea MD, MPH [address] [place] [address] [email or web address] documented as of this encounter Visit Diagnoses Not on filedocumented in this encounter Additional Health Concerns Infection Onset Date Last Indicated Resolved Time 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 10/19/2019 10/19/2019 11/01/2019 1:24 AM E DT COVID-19 11/21/2022 11/21/2022 12/12/2022 1:21 AM EDT documented as of this encounter Care Teams Service Vehicle Operator Relationship Specialty Start Date End Date Nathan Nickerson MD [address] [place] [address] PCP - General 08/15/13 Nathan Nickerson MD [address] [place] [address] Insurance Assigned Provider 05/22/23 Alpa Marshall [address] [place] [address] [email or web address] Intensivist 12/09/16 06/28/17 Александр Hill MD [address] [place] [address] [email or web address] Primary Oncologist Neurology 04/26/18 Franko Luciano MD [address] [place] [address] Internal Medicine 03/31/19 Ginger Mcdonald MD [address] [place] [address] Neurosurgery 08/21/19 Monique Lea MD, MPH [address] [place] [address] [email or web address] Neurology 08/22/19 Brock Rodriguez MD [address] [place] [address] [email or web address] Hematology 11/17/19 Mayra Farrell PA [address] [place] [address] Unknown Provider Specialty 12/01/19 Brock Rodriguez MD [address] [place] [address] [email or web address] Hematology 12/04/19 documented as of this encounter Additional Source Comments The information contained in this document represents components of the legal health record. It is not the complete legal health record.[facility]
--- OUTSIDE RECORDS SUMMARY | 2024-10-24 14:48 | XMS_ITS | Encounter Summary ---
Author Organization [facility] Address [facility] [address] [address] Phone Care Team Providers Care Oil Well Gun Perforator Operator Name Role Phone Nathan Nickerson MD Primary Care Provider [phone] Nathan Nickerson MD Unavailable Александр Hill MD Unavailable Franko Luciano MD Unavailable [phone] Ginger Mcdonald MD Unavailable [phone] Monique Lea MD, MPH Unavailable Brock Rodriguez MD Unavailable Mayra Farrell Unavailable Brock Rodriguez MD Unavailable [phone] Encounter Details Date Type Department Care Team (Late st Contact Info) Description 08/27/2019 Procedure Pass [facility] [address] [place] [address] Social History Tobacco Use Types Packs/Day Years Used Date Smoking Tobacco: Former Cigarettes 1 16 0 02/15/1959 - 02/15/1975 Smokeless Tobacco: Never Alcohol Use Standard Drinks/Week Comments Yes 1 (1 standard drink = 0.6 oz pur e alcohol) 1 glass of wine 1-2 x week Comments No Sex and Gender Information Value Date Recorded Sex Assigned at Not on file Legal Sex Female 6:28 PM EST Gender Identity Not on file Sexual Orientation Not on file documented as of this encounter Plan of Treatment Upcoming Encounters Date Type Department Care Team (Late st Contact Info) Description 12/01/2024 1:30 PM EDT Office Visit [facility] Internal Medicine [address] [place] [address] Nathan Nickerson MD [address] [place] [address] [email or web address] 06/26/2025 11:30 AM EDT Office Visit [facility], Department of Neurology [address] [place] [address] Monique Lea MD, MPH [address] [place] [address] [email or web address] documented as of this encounter Visit Diagnoses Not on filedocumented in this encounter Additional Health Concerns Infection Onset Date Last Indicated Resolved Time CoV-Risk Comment:SNF dc 10/17 full PPE for 14 days 10/19/2019 10/19/2019 11/01/2019 1:24 AM E DT COVID-19 11/21/2022 11/21/2022 12/12/2022 1:21 AM EDT Assessment Noted Time PHQ-2 Depression Total Score: 0 06/15/19 20 1:37 PM EDT documented as of this encounter Care Teams Oil Well Gun Perforator Operator Relationship Specialty Start Date End Date Nathan Nickerson MD [address] [place] [address] PCP - General 08/15/13 Nahtan Nickerson MD [address] [place] [address] Insurance Assigned Provider 05/22/23 Александр Hill MD [address] [place] [address] [email or web address] Primary Oncologist Neurology 04/26/18 Franko Luciano MD [address] [place] [address] Internal Medicine 03/31/19 Ginger Mcdonald MD [address] [place] [address] Neurosurgery 08/21/19 Monique Lea MD, MPH [address] [place] [address] [email or web address] Neurology 08/22/19 Brock Rodriguez MD [address] [place] [address] [email or web address] Hematology 11/17/19 Mayra Farrell PA [address] [facility] [address] [place] [address] Unknown Provider Specialty 12/01/19 Brock Rodriguez MD [address] [place] [address] [email or web address] Hematology 12/04/19 documented as of this encounter Additional Source Comments The information contained in this document represents components of the legal health record. It is not the complete legal health record.[facility]
--- OUTSIDE RECORDS SUMMARY | 2024-10-24 14:48 | XMS_ITS | Encounter Summary ---
Author Organization [facility] Address [facility] [employer] [address] [address] Phone Care Team Providers Care Lining Cutter Name Role Phone Nathan Nickerson MD Primary Care Provider Nathan Nickerson MD Unavailable [phone] Александр Hill MD Unavailable [phone] Franko Luciano MD Unavailable Ginger Mcdonald MD Unavailable [phone] Monique Lea MD, MPH Unavailable Brock Rodriguez MD Unavailable Mayra Farrell Unavailable Brock Rodriguez MD Unavailable [phone] Encounter Details Date Type Department Care Team (Late st Contact Info) Description 09/22/2019 Procedure Pass [facility] [address] [place] [address] Social History Tobacco Use Types Packs/Day Years [...] Description 12/01/2024 1:30 PM EDT Office Visit [facility] Internal Medicine [address] [place] [address] Nathan Nickerson MD [address] [place] [address] 06/26/2025 11:30 AM EDT Office Visit [facility], Department of Neurology [address] [place] [address] Monique Lea MD, MPH [address] [place] [address] [email or web address] documented as of this encounter Visit Diagnoses [...] documented as of this encounter Care Teams Lining Cutter Relationship Specialty Start Date End Date Nathan Nickerson MD [address] [place] [address] PCP - General 08/15/13 Nathan Nickerson MD [address] [place] [address] Insurance Assigned Provider 05/22/23 Александр Hill MD [address] [place] [address] [email or web address] Primary Oncologist Neurology 04/26/18 Franko Luciano MD [address] [place] [address] Internal Medicine 03/31/19 Ginger Mcdonald MD [address] [place] [address] Neurosurgery 08/21/19 Monique Lea MD, MPH [address] [place] [address] [email or web address] Neurology 08/22/19 Brock Rodriguez MD [address] [place] [address] [email or web address] Hematology 11/17/19 Mayra Farrell PA 100 [facility] [address] [place] [address] Unknown Provider Specialty 12/01/19 Brock Rodriguez MD [address] [place] [address] [email or web address] Hematology 12/04/19 documented as of this encounter Additional Source Comments The information contained in this document represents components of the legal health record. It is not the complete legal health record.[facility]
--- OUTSIDE RECORDS SUMMARY | 2024-10-24 14:48 | XMS_ITS | Encounter Summary ---
Author Organization [facility] Address [facility] [employer] [address] [address] Phone Care Team Providers Care Contract Writer Name Role Phone Nathan Nickerson MD Primary Care Provider Nathan Nickerson MD Unavailable [phone] Александр Hill MD Unavailable Franko Luciano MD Unavailable [phone] Ginger Mcdonald MD Unavailable Monique Lea MD, MPH Unavailable [phone] Brock Rodriguez MD Unavailable Mayra Farerll Unavailable Brock Rodriguez MD Unavailable [phone] Encounter Details Date Type Department Care Team (Late st Contact Info) Description 09/22/2019 Procedure Pass [facility] [address] [place] [address] Social History Tobacco Use Types Packs/Day Years [...] Description 12/01/2024 1:30 PM EDT Office Visit [facility] Internal Medicine [address] [place] [address] Nathan Nickerson MD [address] [place] [address] [email or web address] 06/26/2025 11:30 AM EDT Office Visit [facility], Department of Neurology [address] [place] [address] Monique Lea MD, MPH [address] [place] [address] [email or web address] documented as of this encounter Visit [...] documented as of this encounter Care Teams Contract Writer Relationship Specialty Start Date End Date Nathan Nickerson MD [address] [place] [address] PCP - General 08/15/13 Nathan Nickerson MD [address] [place] [address] Insurance Assigned Provider 05/22/23 Александр Hill MD [address] [place] [address] [email or web address] Primary Oncologist Neurology 04/26/18 Franko Luciano MD 8 [place] [address] Internal Medicine 03/31/19 Ginger Mcdonald MD [address] [place] [address] Neurosurgery 08/21/19 Monique Lea MD, MPH [address] [place] [address] [email or web address] Neurology 08/22/19 Brock Rodriguez MD [address] [place] [address] [email or web address] Hematology 11/17/19 Mayra Farrell PA 100 [facility] [address] [place] [address] Unknown Provider Specialty 12/01/19 Brock Rodriguez MD [address] [place] [address] [email or web address] Hematology 12/04/19 documented as of this encounter Additional Source Comments The information contained in this document represents components of the legal health record. It is not the complete legal health record.[facility]
--- OUTSIDE RECORDS SUMMARY | 2024-10-24 14:48 | XMS_ITS | Encounter Summary ---
Author Organization [facility] Address [facility] [employer] [address] [address] Phone Care Team Providers Care Brick Washer Name Role Phone Nathan Nickerson MD Primary Care Provider [phone] Nathan Nickerson MD Unavailable Александр Hill MD Unavailable Franko Luciano MD Unavailable Ginger Mcdonald MD Unavailable Monique eLa MD, MPH Unavailable Brock Rodriguez MD Unavailable Mayra Farrell Unavailable Brock Rodriguez MD Unavailable [phone] Encounter Details Date Type Department Care Team (Late st Contact Info) Description 08/28/2019 Procedure Pass [facility] [address] [place] [address] Social History Tobacco Use Types Packs/Day Years [...] Description 12/01/2024 1:30 PM EDT Office Visit [facility] Internal Medicine [address] [place] [address] Nathan Nickerson MD [address] [place] [address] [email or web address] 06/26/2025 11:30 AM EDT Office Visit [facility], Department of Neurology [address] [place] [address] Monique Lea MD, MPH [address] [place] [phone] [email or web address] documented as of this encounter Visit [...] documented as of this encounter Care Teams Brick Washer Relationship Specialty Start Date End Date Nathan Nickerson MD [address] [place] [address] PCP - General 08/15/13 Nathan Nickerson MD [address] [place] [address] Insurance Assigned Provider 05/22/23 Александр Hill MD [address] [place] [address] [email or web address] Primary Oncologist Neurology 04/26/18 Franko Luciano MD 8 [place] [address] Internal Medicine 03/31/19 Ginger Mcdonald MD [address] [place] [address] Neurosurgery 08/21/19 Monique Lea MD, MPH [address] [place] [address] [email or web address] Neurology 08/22/19 Brock Rodriguez MD [address] [place] [address] [email or web address] [email or web address] 11/17/19 Mayra Farrell PA 100 [facility] [address] [place] [address] Unknown Provider Specialty 12/01/19 Brock Rodriguez MD [address] [place] [address] [email or web address] Hematology 12/04/19 documented as of this encounter Additional Source Comments The information contained in this document represents components of the legal health record. It is not the complete legal health record.[facility]
--- OUTSIDE RECORDS SUMMARY | 2024-10-24 14:48 | XMS_ITS | Encounter Summary ---
Author Organization [facility] Address [facility] [employer] [address] [address] Phone Care Team Providers Care Spragger Name Role Phone Nathan Nickerson MD Primary Care Provider Nathan Nickerson MD Unavailable [phone] Александр Hill MD Unavailable Franko Luciano MD Unavailable Ginger Mcdonald MD Unavailable Monique Lea MD, MPH Unavailable [phone] Brock Rodriguez MD Unavailable Mayra Farrell Unavailable Brock Rodriguez MD Unavailable [phone] Encounter Details Date Type Department Care Team (Late st Contact Info) Description 08/26/2019 Procedure Pass [facility] [address] [place] [address] Social History Tobacco Use Types Packs/Day Years [...] Description 12/01/2024 1:30 PM EDT Office Visit [facility] Internal Medicine [address] [place] [address] Nathan Nickerson MD [address] [place] [address] [email or web address] 06/26/2025 11:30 AM EDT Office Visit [facility], Department of Neurology [address] [place] [address] Monique Lea MD, MPH [address] [place] [address] [email or web address] documented as of this encounter [...] documented as of this encounter Care Teams Spragger Relationship Specialty Start Date End Date Nathan Nickerson MD [address] [place] [address] PCP - General 08/15/13 Nathan Nickerson MD [address] [place] [address] Insurance Assigned Provider 05/22/23 Александр Hill MD 55 [place] [address] [email or web address] Primary Oncologist Neurology 04/26/18 Franko Luciano MD 8 [place] [address] Internal Medicine 03/31/19 Ginger Mcdonald MD [address] [place] [address] Neurosurgery 08/21/19 Monique Lea MD, MPH [address] [place] [address] [email or web address] Neurology 08/22/19 Brock Rodriguez MD [address] [place] [address] [email or web address] Hematology 11/17/19 Mayra Farrell PA 100 [facility] [address] [place] [address] Unknown Provider Specialty 12/01/19 Brock Rodriguez MD [address] [place] [address] [email or web address] Hematology 12/04/19 documented as of this encounter Additional Source Comments The information contained in this document represents components of the legal health record. It is not the complete legal health record.[facility]
--- OUTSIDE RECORDS SUMMARY | 2024-10-24 14:48 | XMS_ITS | Encounter Summary ---
Author Organization [facility] Address [address] [place] [address] Phone Care Team Providers Care Corporate Accounting Manager Name Role Phone Nathan Nickerson MD Primary Care Provider Nathan Nickerson MD Unavailable Александр Hill MD Unavailable Franko Luciano MD Unavailable [phone] Ginger Mcdonald MD Unavailable [phone] Monique Lea MD, MPH Unavailable [phone] Brock Rodriguez MD Unavailable Mayra Farrell Unavailable Brock Rodriguez MD Unavailable Encounter Details Date Type Department Care Team (Late st Contact Info) Description 08/28/2019 Procedure Pass [facility] Periop [address] [place] [address] Social History Tobacco Use Types Packs/Day Years [...] Description 12/01/2024 1:30 PM EDT Office Visit [facility] Internal Medicine 40 [place] [address] Nathan Nickerson MD 40 [place] [address] 06/26/2025 11:30 AM EDT Office Visit [facility], Department of Neurology 60 [place] [address] Monique Lea MD, MPH 75 [place] [address] [email or web address] documented as of this encounter Visit [...] documented as of this encounter Care Teams Corporate Accounting Manager Relationship Specialty Start Date End Date Nathan Nickerson MD 40 [place] [address] [email or web address] PCP - General 08/15/13 Nathan Nickerson MD [address] [place] [address] [email or web address] Insurance Assigned Provider 05/22/23 Александр Hill MD 55 [place] [address] [email or web address] Primary Oncologist Neurology 04/26/18 Franko Luciano MD 8 [place] [address] Internal Medicine 03/31/19 Ginger Mcdonald MD [address] [place] [address] Neurosurgery 08/21/19 Monique Lea MD, MPH [address] [place] [address] [email or web address] Neurology 08/22/19 Brock Rodriguez MD [address] [place] [address] [email or web address] Hematology 11/17/19 Mayra Farrell PA [address] [address] Unknown Provider Specialty 12/01/19 Brock Rodriguez MD [address] [place] [address] [email or web address] Hematology 12/04/19 documented as of this encounter Additional Source Comments The information contained in this document represents components of the legal health record. It is not the complete legal health record.[facility]
--- OUTSIDE RECORDS SUMMARY | 2024-10-24 14:49 | XMS_ITS | Patient Health Record ---
Author Organization [facility] Address [address] [place] [address] Care Team Providers Care Audiology Technician Name Role Phone Nathan Nickerson MD Primary Care Provider Riley Otoole Unavailable [phone] Allergies Allergen (clinical drug ingredient) Drug/Non Drug [...] (HH) 6.5 HEMOGLOBIN A1C (GLYCOHEMOGLO BIN) Reviewed date:09/15/2024 09:06:29 AM Interpretation: Performing Lab: Notes/Report: HEMOGLOBIN A1C % (HH) 6.5 HEMOGLOBIN A1C (GLYCOHEMOGLO BIN) Reviewed date:09/15/2024 09:13:48 AM Interpretation: Performing Lab: Notes/Report: HEMOGLOBIN A1C % (HH) 6.5 Reason For Referral No Information Medications Medication SIG (Take, Route, Frequency, Duration) Notes Start Date End Date Status Lovenox Not-Taking Extra Depth Orthopedic Shoes (1 Pair) with Customized Heat Molded Multidensity Innersoles (3 Pair) as directed Dx: NIDDM/Polyneuropathy (E11.42), Hammertoe Foot Deformity (M20.41,M20.42), Preulcerative Skin Lesion(s) (L85.1 05/11/2023 Active Vitamin D Active Simvastatin 20 MG Orally Once a day Active Lisinopril Active Glimepiride Not-Taki ng Multi Vitamin Active Vitamin E 1000 UNIT Orally Not-Taking Metformin & Diet Manage Prod 500MG once a day Active Calcium Citrate Not- Taking busPIRone HCl Active Gabapentin 300 MG Once a day N ot-Taking Lisinopril Not-Takin g clonazePAM Not-Takin g oxyBUTYnin Not-Takin g Immunizations Vaccine Route Administration Date Status Comme nts Influenza Unknown 11/18/2015 Administered Influenza Unknown 12/22/2016 Administered Influenza Unknown 11/15/2017 Administered Influenza Unknown 11/11/2021 Administered Influenza Unknown 11/16/2023 Administered Pneumococcal Unknown 11/20/2020 Administered Flu vaccine [...] Problem Acquired hammer toe of right foot (9418499732803083 ) Other hammer toe(s) (acquired), right foot (M20.41) Active confirmed Problem Acquired hammer toe of left foot (5030982262446392 ) Other hammer toe(s) (acquired), left foot (M20.42) Active confirmed Problem Polyneuropathy due to type 2 diabetes mellitus (329142340) Type 2 diabetes mellitus with diabetic polyneuropathy (E11.42) Active confirmed Vital Signs Blood pressure diastolic 65 mm Hg 09/15/2024 Height 5 ft 7 in in 09/15/2024 Blood pressure systolic 128 mm Hg 09/15/2024 Weight 160 lbs 09/15/2024 BMI 25.06 kg/m2 09/15/2024 Procedures Procedure Date Ordered Date Performed Result Body Sit e 79318-DWOQSCW NAIL, 6 OR MORE 11/12/2023 N/A 64430-PXIB SKIN LESIONS, 2 TO 4 11/12/2023 N/A 12518-BDFPPOV NAIL, 6 OR MORE 02/29/2024 N/A 56387-WUDY SKIN LESIONS, 2 TO 4 02/29/2024 N/A 13821-LYIWTSM NAIL, 6 OR MORE 05/30/2024 N/A 14935-UEBZ SKIN LESIONS, 2 TO 4 05/30/2024 N/A 26291-NVAXRDQ NAIL, 6 OR MORE 09/15/2024 N/A 08836-QHTZ SKIN LESIONS, 2 TO 4 09/15/2024 N/A Encounters Encounter Location Date Provider Diagnosis [address] [address] 11/12/2023 Riley Ravi Type 2 diabetes mellitus with diabetic polyneuropathy E11.42 and Tinea unguium B35.[address] [address] 02/29/2024 Riley Ravi Type 2 diabetes mellitus with diabetic polyneuropathy E11.42 ; Tinea unguium B35.1 ; Other hammer toe(s) (acquired), right foot M20.41 and Other hammer toe(s) (acquired), left foot M20.[address] [address] 05/30/2024 Riley Ravi Type 2 diabetes mellitus with diabetic polyneuropathy E11.42 and Tinea unguium B35.[address] [address] 09/15/2024 Riley Ravi Type 2 diabetes mellitus with [...] E11.42) 05/30/2024 Tinea unguium (ICD-10 - B35.1) 09/15/2024 Type 2 diabetes mellitus with diabetic polyneuropathy (ICD-10 - E11.42) 09/15/2024 Tinea unguium (ICD-10 - B35.1) 02/29/2024 Other hammer toe(s) (acquired), right foot (ICD-10 - M20.41) Patient Educated with: DIABETIC FOOT CARE INSTRUCTIONS. pdf (DIABETIC FOOT CARE INSTRUCTIONS. pdf) 02/29/2024 Other hammer toe(s) (acquired), left foot (ICD-10 - M20.42) 11/12/2023 Other 05/30/2024 Other 09/15/2024 Other Plan Of Treatment Pending Test Test Name Order Date Hemoglobin A1c 03/12/2015 60598-IXYZYJC NAIL, 6 OR MORE 03/12/2015 53983-PGYVBHQ NAIL, 6 OR MORE 06/21/2015 58478-KDXZVQG NAIL, 6 OR MORE 09/24/2015 02085-QRKSGCF NAIL, 6 OR MORE 12/27/2015 00663-HTWYKBJ NAIL, 6 OR MORE 04/03/2016 15304-ODQDKRI NAIL, 6 OR MORE 07/07/2016 35541-EGJDRQO NAIL, 6 OR MORE 10/16/2016 78979-CIQYHDG NAIL, 6 OR MORE 01/22/2017 12568-XUUGNAE NAIL, 6 OR MORE 04/30/2017 15423-BIYSSQA NAIL, 6 OR MORE 07/30/2017 86175-FIEKNXV NAIL, 6 OR MORE 11/02/2017 09330-LRGDGIV NAIL, 6 OR MORE 02/25/2018 14311-GPQQAKS NAIL, 6 OR MORE 05/31/2018 56762-NSGDCYD NAIL, 6 OR MORE 09/06/2018 38111-BUDKILR NAIL, 6 OR MORE 11/25/2018 68666-GHLJARC NAIL, 6 OR MORE 03/07/2019 49880-OVZHRYO NAIL, 6 OR MORE 11/11/2010 48282-NDJMNSO NAIL, 6 OR MORE 02/03/2011 30725-UKMTAZW NAIL, 6 OR MORE 05/12/2011 95024-IZXCCBI NAIL, 6 OR MORE 08/04/2011 21969-AVCKYOK NAIL, 6 OR MORE 11/06/2011 82710-MPKZXWX NAIL, 6 OR MORE 01/29/2012 98400-SHHVRQB NAIL, 6 OR MORE 05/06/2012 29289-RPIXUCA NAIL, 6 OR MORE 07/29/2012 84437-QIJMVMJ NAIL, 6 OR MORE 10/28/2012 89296-DFRPFRO NAIL, 6 OR MORE 01/31/2013 99099-EAWWUBV NAIL, 6 OR MORE 05/09/2013 73115-UXWYREY NAIL, 6 OR MORE 08/15/2013 01517-NOLSGYJ NAIL, 6 OR MORE 11/21/2013 48216-QCIEWKA NAIL, 6 OR MORE 02/27/2014 30962-PSPQDAH NAIL, 6 OR MORE 05/29/2014 08630-TREQFIV NAIL, 6 OR MORE 09/04/2014 05589-ZEJVZLF NAIL, 6 OR MORE 12/04/2014 54843-TZFXNFD NAIL, 6 OR MORE 11/21/2019 84698-VHIHFHK NAIL, 6 OR MORE 02/27/2020 35146-AFSGDTS NAIL, 6 OR MORE 05/28/2020 24834-RQDQMTM NAIL, 6 OR MORE 09/06/2020 31186-AADWKNR NAIL, 6 OR MORE 12/10/2020 99783-QKINCAO NAIL, 6 OR MORE 04/29/2021 91028-GJIPZKB NAIL, 6 OR MORE 09/09/2021 82223-WXNADLZ NAIL, 6 OR MORE 12/16/2021 82878-ODMEEAE NAIL, 6 OR MORE 04/10/2022 53056-SUAPLIG NAIL, 6 OR MORE 07/17/2022 63225-VXYCQOK NAIL, 6 OR MORE 10/23/2022 00675-TNCZMGD NAIL, 6 OR MORE 02/02/2023 44451-MHPAFCJ NAIL, 6 OR MORE 05/11/2023 39180-SEGPSPL NAIL, 6 OR MORE 08/10/2023 09330-UZUVKPZ NAIL, 6 OR MORE 11/12/2023 64787-QNEWCTN NAIL, 6 OR MORE 02/29/2024 31593-OLEEGPK NAIL, 6 OR MORE 05/30/2024 00951-IRTOCWA NAIL, 6 OR MORE 09/15/2024 12402-Wfbwoasz Plate 02/27/2020 66353-Kjaaplfh Plate 02/02/2023 41589-Qxuboqsk Plate 03/12/2015 60356 I&D ABSCESS- SIMPLE,SINGLE 012 46702-DUQT SKIN LESIONS, OVER 4 03/12/19 16 04273-RBNB SKIN LESIONS, OVER 4 09/24/19 16 77739-NMXD SKIN LESIONS, OVER 4 06/21/19 16 59922-EUEV SKIN LESIONS, OVER 4 01/23/20 17 90113-HFDS SKIN LESIONS, OVER 4 10/17/19 17 03771-RGVS SKIN LESIONS, OVER 4 04/03/19 17 15100-PNWC SKIN LESIONS, OVER 4 07/08/19 17 00832-ZFXK SKIN LESIONS, OVER 4 12/27/19 16 14454-JHRT SKIN LESIONS, OVER 4 02/25/19 19 97741-RIYU SKIN LESIONS, OVER 4 11/03/19 18 83000-SQKU SKIN LESIONS, OVER 4 07/31/19 18 64571-PKLI SKIN LESIONS, OVER 4 05/01/19 18 58999-ENWE SKIN LESIONS, OVER 4 12/05/19 15 78588-CCPF SKIN LESIONS, OVER 4 09/05/19 15 70655-UIPR SKIN LESIONS, OVER 4 05/30/19 15 41213-VLZW SKIN LESIONS, OVER 4 02/27/19 15 94788-NJSF SKIN LESIONS, OVER 4 11/22/19 14 14687-MDDJ SKIN LESIONS, OVER 4 08/16/19 14 07483-JOQI SKIN LESIONS, OVER 4 05/10/19 14 54339-AYJU SKIN LESIONS, OVER 4 02/01/20 13 72393-LUZZ SKIN LESIONS, 2 TO 4 10/29/19 13 93859-AYVT SKIN LESIONS, 2 TO 4 07/30/19 13 27159-ZUWO SKIN LESIONS, 2 TO 4 05/07/19 13 97159-ZYNN SKIN LESIONS, 2 TO 4 01/29/20 12 15867-DYFG SKIN LESIONS, 2 TO 4 11/06/19 12 76443-QXQA SKIN LESIONS, 2 TO 4 08/04/19 12 90987-TLDN SKIN LESIONS, 2 TO 4 05/12/19 12 06809-DAIW SKIN LESIONS, 2 TO 4 03/07/19 90486-XMMH SKIN LESIONS, 2 TO 4 11/26/19 37843-BWBR SKIN LESIONS, 2 TO 4 09/07/19 21200-ESDX SKIN LESIONS, 2 TO 4 06/01/19 07787-OHDF SKIN LESIONS, 2 TO 4 05/11/19 27818-JDOO SKIN LESIONS, 2 TO 4 11/12/19 46612-SZFP SKIN LESIONS, 2 TO 4 08/10/19 75667-XQQJ SKIN LESIONS, 2 TO 4 02/03/20 14201-WYMP SKIN LESIONS, 2 TO 4 10/24/19 03233-XQOD SKIN LESIONS, 2 TO 4 07/18/19 45360-HKOP SKIN LESIONS, 2 TO 4 04/10/19 84407-MTBQ SKIN LESIONS, 2 TO 4 12/17/19 71373-XXXJ SKIN LESIONS, 2 TO 4 09/10/19 11045-RHSQ SKIN LESIONS, 2 TO 4 04/30/19 19250-HLDM SKIN LESIONS, 2 TO 4 12/11/19 86915-DLIV SKIN LESIONS, 2 TO 4 09/07/19 51850-QQLL SKIN LESIONS, 2 TO 4 05/29/19 45758-QTZD SKIN LESIONS, 2 TO 4 02/26/19 36534-JJPF SKIN LESIONS, 2 TO 4 11/21/19 54492-BICH SKIN LESIONS, 2 TO 4 09/16/19 84522-RHWY SKIN LESIONS, 2 TO 4 05/31/19 44720-OTDU SKIN LESIONS, 2 TO 4 02/28/19 Next Appt Details Provider Name:Riley Rodrigues , 01/05/2025 09:00:00 AM, [address] [place], [address], Insurance Providers Payer Name Payer Address Payer Phone Subscriber Number Group Number Insured Name Patient Relationship to Insured Coverage Start Date Coverage End Date Medicare [facility] [address] [place] [address] [phone] [id number] Jossie Parson Self - patient is the insured 1 [employer]mber) [address] [place] [id number] Jossie Self - patient is the insured Medical (General) History Medical History History ICD Code Cholesterol psoriasis osteoporosis cancer broken bones hypertension Diabetic type ll Surgical History Surgery Date(Month/Year) appendectomy brain surgery hip surgery hysterectomy back surgery 09/2019 Hospitalization History Reason Date(Month/Year) [facility]- rehab back sx 4 weeks [facility] for sliver on left leg stitches w ere done 2016 admitted to [facility] for a f all- DX- fracture back for 4 days then Kimber jacob 01/09/2016
--- OUTSIDE RECORDS SUMMARY | 2024-10-24 14:49 | XMS_ITS | Encounter Summary ---
Author Organization [facility] Address [address] [place] [address] Phone Care Team Providers Care Director Erp Name Role Phone Nathan Nickerson MD Primary Care Provider [phone] Nathan Nickerson MD Unavailable Александр Hill MD Unavailable Franko Luciano MD Unavailable Ginger Mcdonald MD Unavailable [phone] Monique Lea MD, MPH Unavailable Brock Rodriguez MD Unavailable Mayra Farrell Unavailable Brock Rodriguez MD Unavailable [phone] Reason for Visit * Reason Comments Medication Refill Encounter Details Date Type Department Care Team (Late st Contact Info) Description 10/19[facility] [address] [place], [place] [phone] Nathan Nickerson MD [address] [place], [place] [phone] Medication Refill Social History Tobacco Use Types Packs/Day Years [...] on file documented as of this encounter Progress Notes * Nadia Hunter CMA - 10/19/2024 7:34 AM EDT Rx Care Gap Status - Instructions for Clinical Staff (prescriber discretion applies): > Mismatch review guide > N/a - No action needed Visit Info Last visit: 05/25/2024 Nathan Nickerson MD - Internal Medicine [facility] > Requested f/u: Return in about 6 months (around 11/24/2024). Upcoming visit: 12/01/2024 Nathan Nickerson MD - Internal Medicine [facility] ACTIONS TAKEN BY Nadia Hunter CMA - Criteria met. Cholesterol Medication Rx Protocol (on Diabetes Registry) - simvastatin Criteria met; renew for up to 12 months. Visit in the past 14 months: Yes Clinical criteria: - Lipid panel within past year: Yes (LDL 70 on 05/22/2024) Lab Results Component Value Date LDL 70 05/22/2024 HDL 48 05/22/2024 CARDIAC RISK RATIO 2.9 (L) 05/22/2024 TRIGLYCERIDES 101 05/22/2024 CHOLESTEROL 138 05/22/2024 documented in this encounter Plan of Treatment Upcoming Encounters Date Type Department Care Team (Late st Contact Info) Description 12/01/2024 1:30 PM EDT Office Visit [facility] Internal Medicine [address] [place] [address] Nathan Nickerson MD [address] [place] [address] 06/26/2025 11:30 AM EDT Office Visit [facility], Department of Neurology [address] [place] [address] Monique Lea MD, MPH [address] [place] [address] [email or web address] documented as of this encounter Visit Diagnoses Diagnosis Hyperlipidemia Other and unspecified hyperlipidemia documented in this encounter Additional Health Concerns Assessment Noted Time PHQ-2 Depression Total Score: 0 04/23/19 24 1:51 PM EST documented as of this encounter Care Teams Director Erp Relationship Specialty Start Date End Date Nathan Nickerson MD [address] [place] [address] PCP - General 08/15/13 Nathan Nickerson MD [address] [place] [address] Insurance Assigned Provider 05/22/23 Александр Hill MD [address] [place] [address] [email or web address] Primary Oncologist Neurology 04/26/18 Franko Luciano MD 8 [place] [address] Internal Medicine 03/31/19 Ginger Mcdonald MD [address] [place] [address] Neurosurgery 08/21/19 Monique Lea MD, MPH [address] [place] [address] [email or web address] Neurology 08/22/19 Brock Rodriguez MD [address] [place] [address] [email or web address] Hematology 11/17/19 Mayra Farrell PA 100 [facility] [address] [place] [address] Unknown Provider Specialty 12/01/19 Brock Rodriguez MD [address] [place] [address] [email or web address] Hematology 12/04/19 documented as of this encounter Additional Source Comments The information contained in this document represents components of the legal health record. It is not the complete legal health record.[facility]
--- OUTSIDE RECORDS SUMMARY | 2024-10-24 14:49 | XMS_ITS | Encounter Summary ---
Author Organization [facility] Address [facility] [employer] [address] [address] Phone Care Team Providers Care Laborer Cement Gun Placing Name Role Phone Nathan Nickerson MD Primary Care Provider Nathan Nickerson MD Unavailable Александр Hill MD Unavailable [phone] Franko Luciano MD Unavailable Ginger Mcdonald MD Unavailable [phone] Monique Lea MD, MPH Unavailable Brock Rodriguez MD Unavailable Mayra Farrell Unavailable Brock Rodriguez MD Unavailable [phone] Encounter Details Date Type Department Care Team (Late st Contact Info) Description 09/26/2019 Procedure Pass [facility] [address] [place] [address] Social History Tobacco Use Types Packs/Day Years [...] Description 12/01/2024 1:30 PM EDT Office Visit [facility] Internal Medicine [address] [place] [address] Nathan Nickerson MD [address] [place] [address] 06/26/2025 11:30 AM EDT Office Visit [facility], Department of Neurology [address] [place] [address] Monique Lea MD, MPH [address] [place] [address] [email or web address] documented as of this encounter Visit [...] documented as of this encounter Care Teams Laborer Cement Gun Placing Relationship Specialty Start Date End Date Nathan Nickerson MD [address] [place] [address] PCP - General 08/15/13 Nathan Nickerson MD [address] [place] [address] Insurance Assigned Provider 05/22/23 Александр Hill MD [address] [place] [address] [email or web address] Primary Oncologist Neurology 04/26/18 Franko Luciano MD [address] [place] [address] Internal Medicine 03/31/19 Ginger Mcdonald MD [address] [place] [address] Neurosurgery 08/21/19 Monique Lea MD, MPH [address] [place] [address] [email or web address] Neurology 08/22/19 Brock Rodriguez MD [address] [place] [address] [email or web address] Hematology 11/17/19 Mayra Farrell PA 100 [facility] [address] [place] [address] Unknown Provider Specialty 12/01/19 Brock Rodriguez MD [address] [place] [address] [email or web address] Hematology 12/04/19 documented as of this encounter Additional Source Comments The information contained in this document represents components of the legal health record. It is not the complete legal health record.[facility]
--- OUTSIDE RECORDS SUMMARY | 2024-10-24 14:49 | XMS_ITS | Encounter Summary ---
Author Organization [facility] Address [facility] [employer] [address] [address] Phone Care Team Providers Care Type Rolling Machine Operator Name Role Phone Nathan Nickerson MD Primary Care Provider Nathan Nickerson MD Unavailable [phone] Александр Hill MD Unavailable [phone] Franko Luciano MD Unavailable Ginger Mcdonald MD Unavailable Monique Lea MD, MPH Unavailable [phone] Brock Rodriguez MD Unavailable Mayra Farrell Unavailable Brock Rodriguez MD Unavailable Encounter Details Date Type Department Care Team (Late st Contact Info) Description 10/24/2024 Orders Only [facility] Internal Medicine [address] [place] [address] Provider, MD [facility] [place] [place] [address] Social History Tobacco Use Types Packs/Day Years [...] Description 12/01/2024 1:30 PM EDT Office Visit [facility] Internal Medicine [address] [place] [address] Nathan Nickerson MD [address] [place] [address] 06/26/2025 11:30 AM EDT Office Visit [facility], Department of Neurology [address] [place] [address] Monique Lea MD, MPH [address] [place] [address] [email or web address] documented as of this encounter Procedures Procedure Name Priority Date/Time Associated Diagnosis Comments HM DEXA SCAN Routine 10/24/2024 2:28 PM EDT documented in this encounter Results * HM DEXA SCAN (10/24/2024 2:28 PM EDT) us Historical Provider HEALTH MAINTENANCE Final Result documented in this encounter Visit Diagnoses Not on filedocumented in this encounter Additional Health Concerns Assessment Noted Time PHQ-2 Depression Total Score: 0 04/23/19 24 1:51 PM EST documented as of this encounter Care Teams Type Rolling Machine Operator Relationship Specialty Start Date End Date Nathan Nickerson MD [address] [place] [address] [email or web address] PCP - General 08/15/13 Nathan Nickerson MD [address] [place] [address] [email or web address] Insurance Assigned Provider 05/22/23 Александр Hill MD [address] [place] [phone] [email or web address] Primary Oncologist Neurology 04/26/18 Franko Luciano MD [address] [place] [address] Internal Medicine 03/31/19 Ginger Mcdonald MD [address] [place] [address] Neurosurgery 08/21/19 Monique Lea MD, MPH [address] [place] [phone] [email or web address] Neurology 08/22/19 Brock Rodriguez MD [address] [place] [address] [email or web address] Hematology 11/17/19 Mayra Farrell PA [address] [facility] [address] [place] [address] Unknown Provider Specialty 12/01/19 Brock Rodriguez MD [address] [place] [phone] [email or web address] Hematology 12/04/19 documented as of this encounter Additional Source Comments The information contained in this document represents components of the legal health record. It is not the complete legal health record.[facility]
--- OUTSIDE RECORDS SUMMARY | 2024-10-24 14:49 | XMS_ITS | Encounter Summary ---
Author Organization [facility] Address [facility] [employer] [address] [address] Phone Care Team Providers Care Inspector Air Carrier Name Role Phone Nathan Nickerson MD Primary Care Provider Nathan Nickerson MD Unavailable Александр Hill MD Unavailable Franko Luciano MD Unavailable Ginger Mcdonald MD Unavailable [phone] Monique Lea MD, MPH Unavailable Brock Rodriguez MD Unavailable Mayra Farrell Unavailable Brock Rodriguez MD Unavailable [phone] Encounter Details Date Type Department Care Team (Late st Contact Info) Description 09/25/2019 Procedure Pass [facility] [address] [place] [address] Social History Tobacco Use Types Packs/Day Years [...] Description 12/01/2024 1:30 PM EDT Office Visit [facility] Internal Medicine [address] [place] [address] Nathan Nickerson MD 40 [place] [address] 06/26/2025 11:30 AM EDT Office Visit [facility], Department of Neurology [address] [place] [address] Monique Lea MD, MPH [address] [place] [phone] [email or web address] documented as of this encounter Visit [...] documented as of this encounter Care Teams Inspector Air Carrier Relationship Specialty Start Date End Date Nathan Nickerson MD 40 [place] [address] PCP - General 08/15/13 Nathan Nickerson MD [address] [place] [address] Insurance Assigned Provider 05/22/23 Александр Hill MD [address] [place] [address] [email or web address] Primary Oncologist Neurology 04/26/18 Franko Luciano MD 8 [place] [address] Internal Medicine 03/31/19 Ginger Mcdonald MD [address] [place] [address] Neurosurgery 08/21/19 Monique Lea MD, MPH [address] [place] [phone] [email or web address] [email or web address] 08/22/19 Brock Rodriguez MD [address] [place] [address] [email or web address] Hematology 11/17/19 Mayra Farrell PA 100 [facility] [address] [place] [phone] Unknown Provider Specialty 12/01/19 Brock Rodriguez MD [address] [place] [address] [email or web address] Hematology 12/04/19 documented as of this encounter Additional Source Comments The information contained in this document represents components of the legal health record. It is not the complete legal health record.[facility]
--- OUTSIDE RECORDS SUMMARY | 2024-10-24 14:49 | XMS_ITS | Encounter Summary ---
Author Organization [facility] Address [address] [place] [address] Phone Care Team Providers Care Lump Inspector Name Role Phone Nathan Nickerson MD Primary Care Provider Nathan Nickerson MD Unavailable Александр Hill MD Unavailable [phone] Franko Luciano MD Unavailable Ginger Mcdonald MD Unavailable Monique Lea MD, MPH Unavailable Brock Rodriguez MD Unavailable Mayra Farrell Unavailable Brock Rodriguez MD Unavailable Encounter Details Date Type Department Care Team (Late st Contact Info) Description 10/18/2019 Procedure Pass [facility], [facility] [address] [place] [address] Social History Tobacco Use Types Packs/Day Years [...] Description 12/01/2024 1:30 PM EDT Office Visit [facility] Internal Medicine [address] [place] [address] Nathan Nickerson MD [address] [place] [address] 06/26/2025 11:30 AM EDT Office Visit [facility], Department of Neurology [address] [place] [address] Monique Lea MD, MPH [address] [place] [phone] [email or web address] documented as of this encounter Visit [...] documented as of this encounter Care Teams Lump Inspector Relationship Specialty Start Date End Date Nathan Nickerson MD [address] [place] [address] PCP - General 08/15/13 Nathan Nickerson MD [address] [place] [address] Insurance Assigned Provider 05/22/23 Александр Hill MD [address] [place] [address] [email or web address] Primary Oncologist Neurology 04/26/18 Franko Luciano MD [address] [place] [address] Internal Medicine 03/31/19 Ginger Mcdonald MD [address] [place] [address] Neurosurgery 08/21/19 Monique Lea MD, MPH [address] [place] [address] [email or web address] Neurology 08/22/19 Brock Rodriguez MD [address] [place] [address] [email or web address] Hematology 11/17/19 Mayra Farrell PA 100 [facility] [address] [place] [address] Unknown Provider Specialty 12/01/19 Brock Rodriguez MD [address] [place] [address] [email or web address] Hematology 12/04/19 documented as of this encounter Additional Source Comments The information contained in this document represents components of the legal health record. It is not the complete legal health record.[facility]
--- OUTSIDE RECORDS SUMMARY | 2024-10-24 14:49 | XMS_ITS | Clinical Summary ---
Author Organization [facility] Address [address] [place] [address] Phone Care Team Providers Care Side Guider Name Role Phone Nathan Nickerson MD Primary Care Provider [phone] Nathan Nickerson MD Unavailable Александр Hill MD Unavailable [phone] Franko Luciano MD Unavailable Ginger Mcdonald MD Unavailable [phone] Monique Lea MD, MPH Unavailable Brock Rodriguez MD Unavailable Mayra Farrell Unavailable Brock Rodriguez MD Unavailable [phone] Allergies Active Allergy Reactions Criticality Noted Date Comments Adhesive Rash Low 01/01/2003 Anesthetics - Jazmyn Type- Parabens 01/22/2023 Other Reaction(s): can't remember Aspirin 01/22/2023 Carbamazepine Rash Low 12/13/2002 Ibuprofen 01/22/2023 Penicillin G Potassium Unknown 01/22/2023 Penicillins Rash,Swelling Low 12/13/2002 Phenobarbital Rash Low 12/13/2002 Phenytoin Hives,Rash,Unknown Low 11/03/2021 Phenytoin Sodium Rash Low 12/13/2002 Medications acetaminophen (TYLENOL) 325 mg tablet Take 2 tablets (650 mg total) by mouth every 6 (six) hours as needed for mild pain or fever. 0 020 Active Additional Information Patient taking differently:650 mg OralDaily, Up to twice daily PRN, Reported on 04/06/2024 multivitamins with ndhhsufn-hhiq-wh lic acid-calcium (THERA-M) 9 mg iron-400 mcg Tab Take 1 tablet by mouth daily. Active cranberry 500 mg Cap Take 500 mg by mouth 2 (two) times a day. Active ascorbic acid, vitamin C, (VITAMIN C) 500 MG tablet Take 500 mg by mouth 2 (two) times a day. Active NYSTOP powder APPLY TO TRUNK AND GROIN FOUR TIMES DAILY 60 g 3 022 Active Additional Information Patient taking differently: As needed, Reported on 04/06/2024 cholecalciferol (VITAMIN D3) 4,000 unit tablet Take 0.5 tablets (2,000 Units total) by mouth daily. 023 Active PROLIA 60 mg/mL Syrg subcutaneous syringe Inject 60 mg under the skin every 6 (six) months. 023 Active ciclopirox (CICLODAN) 0.77 % creamIndications :Rash and other nonspecific skin eruption APPLY TOPICALLY TO THE AFFECTED AREA TWICE DAILY DIRECTED. GENTLY MASSAGE INTO AFFECTED AREAS AND SURROUNDING SKIN-PRN 60 g 3 024 Active ONETOUCH VERIO Strp stripsIndication s:Type 2 diabetes mellitus without complications 1 each by See Administration Instructions route daily. 100 strip 3 025 Active oxyBUTYnin (DITROPAN) 5 MG tabletIndication s:Urinary incontinence, unspecified type Take 1 tablet (5 mg total) by mouth nightly at bedtime. 90 tablet 3 025 Active Additional Information Patient not taking.Reported on 05/25/2024 lisinopril (PRINIVIL,ZESTRI L) 10 MG tabletIndication s:Essential hypertension TAKE 1 TABLET(10 MG) BY MOUTH DAILY 90 tablet 3 025 Active carvedilol (COREG) 12.5 MG tablet TAKE 1 TABLET(12.5 MG) BY MOUTH TWICE DAILY WITH MEALS 180 tablet 3 025 Active metFORMIN (GLUCOPHAGE-XR) 500 MG 24 hr tabletIndication s:Type 2 diabetes mellitus without complication, without long-term current use of insulin TAKE 1 TABLET(500 MG) BY MOUTH TWICE DAILY WITH MEALS 180 tablet 3 025 Active busPIRone (BUSPAR) 5 MG tablet TAKE 1 TABLET(5 MG) BY MOUTH THREE TIMES DAILY 90 tablet 11 025 Active SITagliptin phosphate (JANUVIA) 25 MG tabletIndication s:Type 2 diabetes mellitus without complication, without long-term current use of insulin Take 1 tablet (25 mg total) by mouth daily. 90 tablet 3 025 Active simvastatin (ZOCOR) 20 MG tabletIndication s:Hyperlipidemia TAKE 1 TABLET(20 MG) BY MOUTH EVERY NIGHT AT BEDTIME 90 tablet 3 025 Active busPIRone (BUSPAR) 5 MG tablet TAKE 1 TABLET(5 MG) BY MOUTH THREE TIMES DAILY 90 tablet 11 024 2024 Discontinued JANUVIA 25 mg tabletIndication s:Type 2 diabetes mellitus without complication, without long-term current use of insulin TAKE 1 TABLET(25 MG) BY MOUTH DAILY 30 tablet 11 024 2024 Discontinued(Parisa solomon) simvastatin (ZOCOR) 20 MG tabletIndication s:Hyperlipidemia TAKE 1 TABLET(20 MG) BY MOUTH EVERY NIGHT AT BEDTIME 90 tablet 3 024 2024 Discontinued Active Problems Problem Noted Date Diagnosed Date Long-term use of high-risk medication 01/05/2024 Communicating hydrocephalus 08/09/2020 Altered mental status 09/22/2019 STOREROOM ATTENDANT (ventriculoperitoneal) shunt status 0 Lumbar back pain 08/26/2019 Rash and other nonspecific skin eruption 018 Chest pain 11/19/2017 Abnormal mammogram 10/20/2017 Acute bilateral low back pain without sciatica 0 10/20/2017 Compression fracture of fourth lumbar vertebra 0 10/20/2017 Hypercalcemia 10/20/2017 Vitamin D insufficiency 10/20/2017 Colon cancer screening 07/15/2017 Essential hypertension 03/11/2017 History of lymphoma 03/11/2017 Hypertension 03/11/2017 Hyperlipidemia 03/11/2017 Osteoporosis 03/11/2017 Pure hypercholesterolemia 03/11/2017 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 lymphoma 12/01/2011 Overview (03/11/2017): Primary central nervous system lymphoma Type 2 diabetes mellitus without complications 0 06/08/2005 Overview (03/11/2017): Diabetes mellitus type 2 Idiopathic thrombocytopenic purpura 12/13/2002 Overview (04/06/2014): Idiopathic thrombocytopenic purpura Resolved Problems Problem Noted Date Diagnosed Date Resolved Date Type 2 diabetes mellitus wit h hyperglycemia, without long-term current use of insulin 11/19/2017 08/09/2020 Encounters Date Type Department Care Team Description 10/24/2024 Orders Only [facility] Internal Medicine [address] [facility] [address] ProviderLeobardo MD 10/19/2024 Refill [facility] Internal Medicine [address] [place] [address] Nathan Nickerson MD Medication Refill 09/27/2024 Refill [facility] [address] [facility] [place] [address] Nathan Nickerson MD Medication Refill 09/26/2024 Refill [facility] Internal Medicine [address] [place] [address] Nathan Nickerson MD Medication Refill 07/28/2024 Refill [facility] Internal Medicine [address] [place] [address] Nathan Nickerson MD Medication Refill from Last 3 Months Immunizations Immunization Administration Dates Next Due COVID-19 (Pre-12/07) Moderna Vaccine, mRNA, PF 04/30/2020,04/02/2020 INFLUENZA, SPLIT VIRUS, TRIVALENT PF ,11/15/2017,12/22/2016,11/17 INFLUENZA, SPLIT VIRUS, TRIV ALENT W/ PRESERVATIVE IM 10/16/2020,10/16/2017,12/17/2014,11/10,01/01/2011 Influenza High-Dose Quadriva lent Preservative Free IM 10/28/2022,10/16/2020,11/21/2019 Influenza High-Dose Trivalen t Preservative Free IM 10/29/2023,11/01/2018,11/03/2017,10/22,11/11/2015,12/01/2014,11/09/2013 ,11/01/2012 Influenza Quadrivalent Adjuv anted Preservative Free IM 11/06/2021 Influenza, Unspecified Formulation 11/04/2009, Pneumococcal conjugate PCV13 12/21/2014 Pneumococcal polysaccharide PPSV23 05/23/2021,,02/15/1994 Pneumococcal, Unspecified Formulation 11/20/2020 RSV Vaccine (bivalent) 01/19/2024 Td (adult) 5 Lf Tetanus Toxo id, PF, Adsorbed 08/09/2014 Td, unspecified formulation 07/10/1996 Family History Medical History Relation Comments Cancer Mother Diabetes Mother Cancer Sister Relation Status Comments Mother Sister Alive Social History Tobacco Use Types Packs/Day Years Used Date Smoking Tobacco: Former Cigarettes 1 16 0 02/15/1959 - 02/15/1975 Smokeless Tobacco: Never Tobacco Cessation:Counseling Given: Not Answered Alcohol Use Standard Drinks/Week Comments Not Currently [...] on file Sexual Orientation Not on file Last Filed Vital Signs Vital Sign Reading Time Taken Comments Blood Pressure 145/90 06/20/2024 11:13 AM EDT Pulse 94 06/20/2024 11:13 AM EDT Temperature 36.2 C (97.1 F) 06/20/2024 11:13 AM EDT Respiratory Rate 16 06/20/2024 11:13 AM EDT Oxygen Saturation 97% 06/20/2024 11:13 AM EDT Inhaled Oxygen Concentration - - Weight 70.8 kg (156 lb) 06/20/2024 11:13 AM EDT pt. reported Height 165.1 cm (5' 5 ) 06/20/2024 11:13 AM EDT Body Mass Index 25.96 06/20/2024 11:13 AM EDT Plan of Treatment Upcoming Encounters Date Type Department Care Team (Late st Contact Info) Description 12/01/2024 1:30 PM EDT Office Visit [facility] Internal Medicine [address] [place] [address] Nathan Nickerson MD [address] [place] [address] 06/26/2025 11:30 AM EDT Office Visit [facility], Department of Neurology [address] [place] [address] Monique Lea MD, MPH [address] [place] [phone] [email or web address] Health Maintenance Due Date Last Done Comments ZOSTER VACCINES (1 of 2) 1964 FOLLOW UP BONE DENSITY TESTING 05/23/2022 10/24/2024, 05/23/2020, 04/15/2018 DEPRESSION SCREENING 04/22/2024 04/23/2023 Adult Td,Tdap Booster 08/09/2024 08/09/2014, 997 INFLUENZA VACCINE (#1) 2024 , 10/28/2022, 10/28/2022, Additional history exists COVID-19 VACCINE ( season) 2024 01/02/2022, 2021, 12/20/2020, Additional history exists HEMOGLOBIN A1C 11/21/2024 05/22/2024, 10/16, 04/21/2023, Additional history exists BLOOD PRESSURE 12/21/2024 06/20/2024 CREATININE LEVEL 05/22/2025 05/22/2024, , 10/29/2023, Additional history exists POTASSIUM LEVEL 05/22/2025 05/22/2024, 02/16, 10/29/2023, Additional history exists DIABETIC EYE EXAM 05/31/2025 05/31/2024, , 06/07/2023, Additional history exists HEPATITIS C SCREENING Completed 09/16/2004 OSTEOPOROSIS SCREENING INITIAL (ONE-TIME) Completed 10/24/2024, 05/23/2020, 04/15/2018 PNEUMOCOCCAL VACCINES (50+ years) Completed 05/23/2021, 12/21/2014, 11/15/2005, Additional history exists RSV VACCINE Completed 01/19/2024 SMOKING STATUS SCREENING (Once After 26 Yrs) Completed 06/20/2024 HEPATITIS A VACCINES Aged Out No long er eligible based on patient's age to complete this topic HIB VACCINES Aged Out No longer eligi ble based on patient's age to complete this topic MENINGOCOCCAL VACCINES (ACWY) Aged Out No longer eligible based on patient's age to complete this topic MENINGOCOCCAL VACCINES (B) Aged Out N o longer eligible based on patient's age to complete this topic Medical Devices Implanted Type Area Regional Operations Manager Device Identifier Shelf Expiration Date Model / Serial / Lot Medtronic Strata Ii Assemblt-08/02/2007 Implanted:08/02/19 08 (Quantity not on file) [id number] / / [id number] [facility] Holter Ventricular Catheter-08/02/2007 Implanted:08/02/19 08 (Quantity not on file) [id number] / / [id number] Procedures Procedure Name Priority Date/Time Associated Diagnosis Comments HM DEXA SCAN Routine 10/24/2024 2:28 PM EDT DIABETES EYE EXAM FOR RESULT ENTRY ONLY Routine 05/31/2024 7:54 AM EDT HEMOGLOBIN A1C Routine 05/22/2024 10:27 AM EDT Type 2 diabetes mellitus without complication, without long-term current use of insulin COMPREHENSIVE METABOLIC PANEL Routine 05/22/2024 10:27 AM EDT Type 2 diabetes mellitus without complication, without long-term current use of insulin Essential hypertension from Last 3 Months or Most Recently Relevant to Health Maintenance Results * HM DEXA SCAN (10/24/2024 2:28 PM EDT) Historical Provider HEALTH MAINTENANCE Final Result * DIABETES EYE EXAM FOR RESULT ENTRY ONLY (05/31/2024 7:54 AM EDT) Historical Provider HEALTH MAINTENANCE Final Result * (ABNORMAL) Comprehensive metabolic panel (05/22/2024 10:27 AM EDT) SODIUM 141 133 - 146 mmol/L [facility] POTASSIUM 4.6 3.3 - 5.1 mmol/L [facility] CHLORIDE 103 96 - 108 mmol/L [facility] CO2 29 21 - 35 mmol/L [facility] BUN 23(H) 6 - 19 mg/dL [facility] CREATININE 0.50 0.5 - 1.5 mg/dL [facility] GLUCOSE 159(H) 70 - 99 mg/dL [facility] ALBUMIN 4.1 3.9 - 4.8 g/dL [facility] TOTAL PROTEIN 7.1 6.5 - 8.0 g/dL [facility] CALCIUM 9.9 8.4 - 10.3 mg/dL [facility] ALKALINE PHOSPHATASE 80 39 - 117 U/L [facility] TOTAL BILIRUBIN 0.5 0.0 - 1.2 mg/dL [facility] AST 18 0 - 37 U/L [facility] ALT 22 0 - 40 U/L [facility] GLOBULIN 3.0 1 - 4.8 g/dL [facility] EGFR 96 >59 mL/min/1.7 3m2 [facility] Comment:Estimated glomerular filtration rate calculated using the CKD-EPI refit equation. ANION GAP 14 10 - 20 mmol/L [facility] Blood 05/22/2024 10:2 7 AM EDT 05/22/2024 10:33 AM EDT Nathan Nickerson MD LAB BLOOD ORDERABLES Final Re sult [address] [address] * (ABNORMAL) Hemoglobin A1c (05/22/2024 10:27 AM EDT) HEMOGLOBIN A1C 6.3(H) 4.3 - 5.8 % [facility] Blood 05/22/2024 10:2 7 AM EDT 05/22/2024 10:33 AM EDT Nathan Nickerson MD LAB BLOOD ORDERABLES Final Re sult Performing Organization Address City/[facility]/ZIP Co de Phone Number [address] [address] from Last 3 Months or Most Recently Relevant to Health Maintenance Insurance MEDICARE PART A & B [facility] MEDICARE SUPPLEMENT MEDICARE PART A & B [facility] MEDICARE SUPPLEMENT MEDICARE PART A & [place] [address] [place] [address] [employer] MEDICARE SUPPLEMENT MEDICARE PART A & B [id number] [place] [address] [employer] MEDICARE SUPPLEMENT MEDICARE PART A & B [employer] MEDICARE SUPPLEMENT MEDICARE PART A & B [employer] MEDICARE SUPPLEMENT MEDICARE PART A & B [facility] MEDICARE SUPPLEMENT MEDICARE PART A & B [employer] [phone] MEDICARE PART A & B Member Subscriber Plan / Payer ( fective 2010-Present) Name:Jossie Parson Member ID:[id number] Relation to Subscriber:Self Name:Jossie Parson Subscriber ID:[id number] Payer ID:[id number] Group ID:Not on file Type:Medicare Address: [employer] [address] [place] [address] Advance Directives For more information, please contact: [phone] (9AM - 5PM [place]/[facility], Wednesday-Wednesday) Documents on File Type Date Recorded Patient Sales Account Executive Expl curly Healthcare Proxy 09/08/2019 9:18 AM Advance Directive - Non Epic LMR 07/25/2007 12:00 AM * Full Code (Confirmed) (Latest Code Status on File) Date Activated Date Inactivated Comments 09/28/2019 4:12 PM Question Answer Comments Code Status Confirmed With: Family Code Status Communicated To: Inpatient Attending * Full Code (Confirmed) Date Activated Date Inactivated Comments 09/23/2019 1:28 AM 09/28/2019 3:10 PM Question Answer Comments Code Status Confirmed With: Other (specify below ) Code Discussion Comments: confirmed in ED * No Code Status Date Activated Date Inactivated Comments 09/22/2019 11:07 PM 09/23/2019 1:28 AM Code Status: Full Code (Confirmed) Question Answer Comments Code Status Confirmed With: Other (specify below ) * Full Code (Confirmed) Date Activated Date Inactivated Comments 09/01/2019 4:14 PM 09/22/2019 11:07 PM Question Answer Comments Code Status Confirmed With: Patient Code Status Communicated To: Inpatient Attending * Full Code (Presumed) Date Activated Date Inactivated Comments 08/26/2019 8:03 PM 09/01/2019 3:30 PM Healthcare Agents on File Name Relationship Healthcare Agent Relationship Communication Jose Parson Spouse .Primary Health Care Agent (Proxy form on file) Care Teams Side Guider Relationship Specialty Start Date End Date Nathan Nickerson MD [address] [place] [phone] [email or web address] PCP - General 08/15/13 Nathan Nickerson MD [address] [place] [phone] Insurance Assigned Provider 05/22/23 Александр Hill MD [address] [place] [id number] [email or web address] Primary Oncologist Neurology 04/26/18 Franko Luciano MD [address] [place] [id number] Internal Medicine 03/31/19 Ginger Mcdonald MD [address] [place] [address] Neurosurgery 08/21/19 Monique Lea MD, MPH [address] [place] [phone] [email or web address] 08/22/19 Brock Rodriguez MD [address] [place] [phone] [email or web address] 11/17/19 Mayra Farrell PA [address] [place] [id number] Unknown Provider Specialty 12/01/19 Brock Rodriguez MD [address] [place] [phone] [email or web address] 12/04/19 Additional Source Comments The information contained in this document represents components of the legal health record. It is not the complete legal health record.[facility]
--- OUTSIDE RECORDS SUMMARY | 2024-10-24 14:49 | XMS_ITS | Encounter Summary ---
Author Organization [facility] Address [facility] [place] [address] [address] Phone Care Team Providers Care Acid Tank Liner Name Role Phone Nathan Nickerson MD Primary Care Provider [phone] Nathan Nickerson MD Unavailable [phone] Александр Hill MD Unavailable Franko Luciano MD Unavailable Ginger Mcdonald MD Unavailable Monique Lea MD, MPH Unavailable Brock Rodriguez MD Unavailable Mayra Farrell Unavailable Brock Rodriguez MD Unavailable [phone] Encounter Details Date Type Department Care Team (Late st Contact Info) Description 09/23/2019 Procedure Pass [facility] [address] [place] [address] Social History Tobacco Use Types Packs/Day Years [...] Visit [facility] Internal Medicine [address] [place] [address] Nathan Nickerson MD [address] [place] [address] [email or web address] 06/26/2025 11:30 AM EDT Office Visit [facility], Department of Neurology [address] [place] [address] Monique Lea MD, MPH [address] [place] [id number] [email or web address] documented as of this encounter [...] documented as of this encounter Care Teams Acid Tank Liner Relationship Specialty Start Date End Date Nathan Nickerson MD [address] [place] [address] PCP - General 08/15/13 Nathan Nickerson MD [address] [place] [address] Insurance Assigned Provider 05/22/23 Александр Hill MD [address] [place] [address] [email or web address] Primary Oncologist Neurology 04/26/18 Franko Luciano MD [address] [place] [address] Internal Medicine 03/31/19 Ginger Mcdonald MD [address] [place] [address] Neurosurgery 08/21/19 Monique Lea MD, MPH [address] [place] [phone] [email or web address] 08/22/19 Brock Rodriguez MD [address] [place] [phone] [email or web address] Hematology 11/17/19 Mayra Farrell PA [address] [facility] [address] [place] [phone] Unknown Provider Specialty 12/01/19 Brock Rodriguez MD [address] [place] [phone] [email or web address] Hematology 12/04/19 documented as of this encounter Additional Source Comments The information contained in this document represents components of the legal health record. It is not the complete legal health record.[facility]
--- OUTSIDE RECORDS SUMMARY | 2024-10-24 14:49 | XMS_ITS | Patient Health Record ---
Author Organization [facility] Address [address] [place] [address] Care Team Providers Care Printing Supplies Sales Representative Name Role Phone Nathan Nickerson MD Primary Care Provider Evaristo Olivas [phone] Allergies Allergen (clinical drug ingredient) Drug/Non Drug [...] Problem Status W/U Status Risk Notes Problem 703546172 Encounter for screening for malignant neoplasm of colon (Z12.11) Active confirmed Problem 975084592119645 Preprocedural examination (Z01.818) Active confirmed Problem 626413814 Family history o f colon cancer (Z80.0) Active confirmed Problem Abnormal feces (945723716) Heme + stool (R19.5) Active confirmed Problem 376428829 Long-term use of high-risk medication (Z79.899) Active confirmed Problem Diverticulosis of colon (898465896) Diverticulosis of colon (K57.30) Active confirmed Plan Of Treatment Pending Test Test Name Order Date Pathology 11/03/2021 Future Test Test Name Order Date COLONOSCOPY 03/17/2018 COLONOSCOPY 10/09/2021 Insurance Providers Payer Name Payer Address Payer Phone Subscriber Number Group Number Insured Name Patient Relationship to Insured Coverage Start Date Coverage End Date MEDICARE OF [place] [address] [place] [address] [id number] BIPIN SLATER Self - patient is the insured [facility] [address] [place] [address] [id number] BIPIN SLATER Self - patient is the insured Medical (General) History Medical History History ICD Code NIDDM Denies CT,CVA,Lung disease,renal disease Neg. 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
--- OUTSIDE RECORDS SUMMARY | 2024-10-24 14:49 | XMS_ITS | Clinical Summary ---
Author Organization [facility] Address [address] [place] [address] Care Team Providers Care Criminal Researcher Name Role Phone Nathan Nickerson MD Primary Care Provider [phone] Social History Tobacco Use Types Packs/Day Years [...] Documents on File Type Date Recorded Patient Alumnae Secretary Expl anation Health Care Decision (hx) 08/28/2019 AD BOOTH DIRECTIVE Health Care Decision (hx) 08/23/2019 AD BOOTH DIRECTIVE Care Teams Criminal Researcher Relationship Specialty Start Date End Date Nathan Nickerson MD [address] [place] [address] PCP - General Internal Medicine 08/17/19
--- OUTSIDE RECORDS SUMMARY | 2024-10-24 14:49 | XMS_ITS | Encounter Summary ---
Author Organization [facility] Address [facility] [employer] [address] [address] Phone Care Team Providers Care Drafter Electromechanical Name Role Phone Nathan Nickerson MD Primary Care Provider Nathan Nickerson MD Unavailable [phone] Александр Hill MD Unavailable Franko Luciano MD Unavailable Ginger Mcdonald MD Unavailable Monique Lea MD, MPH Unavailable [phone] Brock Rodriguez MD Unavailable Mayra Farrell Unavailable Brock Rodriguez MD Unavailable [phone] Encounter Details Date Type Department Care Team (Late st Contact Info) Description 09/23/2019 Procedure Pass [facility] [address] [place] [address] Social History Tobacco Use Types Packs/Day Years [...] Description 12/01/2024 1:30 PM EDT Office Visit [facility] Internal Medicine [address] [place] [address] Nathan Nickerson MD [address] [place] [address] 06/26/2025 11:30 AM EDT Office Visit [facility], Department of Neurology [address] [place] [address] Monique Lea MD, MPH [address] [place] [phone] [email or web address] documented as of this encounter Visit Diagnoses [...] documented as of this encounter Care Teams Drafter Electromechanical Relationship Specialty Start Date End Date Nathan Nickerson MD [address] [place] [address] PCP - General 08/15/13 aNthan Nickerson MD [address] [place] [address] Insurance Assigned Provider 05/22/23 Александр Hill MD [address] [place] [address] [email or web address] Primary Oncologist Neurology 04/26/18 Franko Luciano MD [address] [place] [address] Internal Medicine 03/31/19 Ginger Mcdonald MD [address] [place] [address] Neurosurgery 08/21/19 Monique Lea MD, MPH [address] [place] [phone] [email or web address] Neurology 08/22/19 Brock Rodriguez MD [address] [place] [phone] [email or web address] Hematology 11/17/19 Mayra Farrell PA 100 [facility] [address] [place] [phone] Unknown Provider Specialty 12/01/19 Brock Rodriguez MD [address] [place] [phone] [email or web address] Hematology 12/04/19 documented as of this encounter Additional Source Comments The information contained in this document represents components of the legal health record. It is not the complete legal health record.[facility]
--- OUTSIDE RECORDS SUMMARY | 2024-10-24 14:49 | XMS_ITS | Encounter Summary ---
Author Organization [facility] Address [address] [place] [phone] Phone Care Team Providers Care Skin Care Technician Name Role Phone Nathan Nickerson MD Primary Care Provider Nathan Nickerson MD Unavailable Александр Hill MD Unavailable [phone] Franko Luciano MD Unavailable Ginger Mcdonald MD Unavailable Monique Lea MD, MPH Unavailable Brock Rodriguez MD Unavailable Mayra Farrell Unavailable Brock Rodriguez MD Unavailable [phone] Encounter Details Date Type Department Care Team (Latest Contact Info) Description 09/27/2019 Transcribe Orders [facility] Echocardiography [address] [place] [address] Mary Mcgee MD, MS 75 [facility] PBB-B-4 - Room [address] [place] [address] [email or web address] Encounter for therapeutic drug monitoring (Primary Dx) Social History Tobacco Use Types Packs/Day Years [...] Description 12/01/2024 1:30 PM EDT Office Visit [facility] Internal Medicine [address] [place] [address] Nathan Nickerson MD [address] [place] [address] [email or web address] 06/26/2025 11:30 AM EDT Office Visit [facility], Department of Neurology [address] [place] [address] Monique Lea MD, MPH [address] [place] [phone] [email or web address] documented as of this encounter Procedures Procedure Name Priority Date/Time Associated Diagnosis Comments ECG 12-LEAD Routine 09/26/2019 3:26 PM EDT Encounter for therapeutic drug monitoring documented in this encounter Results * ECG 12-LEAD (09/26/2019 3:26 PM EDT) Systolic Blood Pressure 151 mmHg [facility] Diastolic Blood Pressure 75 mmHg [facility] Ventricular Rate EKG/MIN 83 BPM [facility] Atrial Rate 83 BPM [facility] AK Interval 158 ms [facility] QRS Duration 84 ms [facility] QT Interval 370 ms [facility] QTC Interval 434 ms [facility] P Parsons 17 degrees [facility] R Wave Parsons -8 degrees [facility] T Wave Parsons 74 degrees [facility] 09/26/2019 3:26 PM EDT Narrative FRED - 09/27/2019 3:10 PM EDT Normal sinus rhythm Left ventricular hypertrophy with repolarization abnormality Abnormal ECG When compared with ECG of 25-SEP-2019 11:36, No significant change was found Mary Mcgee MD, MS ECG ORDERABLES Final R esult [facility] documented in this encounter Visit Diagnoses Diagnosis Encounter for therapeutic drug monitoring- Primary documented in this encounter Additional Health Concerns Infection Onset Date Last Indicated Resolved Time CoV-Risk Comment:SNF dc 9/ full PPE for 14 days 10/19/2019 10/19/2019 11/01/2019 1:24 AM E DT COVID-19 11/21/2022 11/21/2022 12/12/2022 1:21 AM EDT Assessment Noted Time PHQ-2 Depression Total Score: 0 06/15/19 20 1:37 PM EDT documented as of this encounter Care Teams Skin Care Technician Relationship Specialty Start Date End Date Nathan Nickerson MD [address] [place] [address] [email or web address] PCP - General 08/15/13 Nathan Nickerson MD [address] [place] [address] [email or web address] Insurance Assigned Provider 05/22/23 Александр Hill MD [address] [place] [phone] [email or web address] Primary Oncologist Neurology 04/26/18 Franko Luciano MD [address] [place] [address] Internal Medicine 03/31/19 Ginger Mcdonald MD [address] [place] [address] Neurosurgery 08/21/19 Monique Lea MD, MPH [address] [place] [phone] [email or web address] Neurology 08/22/19 Brock Rodriguez MD [address] [place] [phone] [email or web address] Hematology 11/17/19 Mayra Farrell PA [address] [place] [phone] Unknown Provider Specialty 12/01/19 Brock Rodriguez MD [address] [place] [address] [email or web address] Hematology 12/04/19 documented as of this encounter Additional Source Comments The information contained in this document represents components of the legal health record. It is not the complete legal health record.[facility]
--- OUTSIDE RECORDS SUMMARY | 2024-10-24 14:49 | XMS_ITS | Encounter Summary ---
Author Organization [facility] Address [facility] [employer] [address] [address] Phone Care Team Providers Care Shoemaking Cutter Name Role Phone Nathan Nickerson MD Primary Care Provider [phone] Nathan Nickerson MD Unavailable [phone] Александр Hill MD Unavailable Franko Luciano MD Unavailable Ginger Mcdonald MD Unavailable Monique Lea MD, MPH Unavailable Brock Rodriguez MD Unavailable Mayra Farrell Unavailable Brock Rodriguez MD Unavailable [phone] Encounter Details Date Type Department Care Team (Late st Contact Info) Description 09/22/2019 Procedure Pass [facility] [address] [place] [address] Social History Tobacco Use Types Packs/Day Years [...] 12/01/2024 1:30 PM EDT Office Visit [facility] Internal Medicine [address] [place] [address] Nathan Nickerson MD [address] [place] [address] [email or web address] 06/26/2025 11:30 AM EDT Office Visit [facility], Department of Neurology [address] [place] [address] Monique Lea MD, MPH [address] [place] [phone] [email or web address] documented as of this encounter [...] documented as of this encounter Care Teams Shoemaking Cutter Relationship Specialty Start Date End Date Nathan Nickerson MD [address] [place] [address] PCP - General 08/15/13 Nathan Nickerson MD [address] [place] [address] Insurance Assigned Provider 05/22/23 Александр Hill MD [address] [place] [address] [email or web address] Primary Oncologist Neurology 04/26/18 Franko Luciano MD 8 [place] [address] Internal Medicine 03/31/19 Ginger Mcdonald MD [address] [place] [address] Neurosurgery 08/21/19 Monique Lea MD, MPH [address] [place] [phone] [email or web address] [email or web address] 08/22/19 Brock Rdoriguez MD [address] [place] [address] [email or web address] Hematology 11/17/19 Mayra Farrell PA 100 [facility] [address] [place] [phone] Unknown Provider Specialty 12/01/19 Brcok Rodriguez MD [address] [place] [phone] [email or web address] Hematology 12/04/19 documented as of this encounter Additional Source Comments The information contained in this document represents components of the legal health record. It is not the complete legal health record.[facility]
== END 2024-10-24 12:27 | disposition home or self-care (01) ==
LOC: HO.MAMMO 12:26
PROVIDERS: PCP Internal Medicine; Visit Provider Internal Medicine Endocrinology, Diabetes & Metabolism
DX: Z12.31 Encounter for screening mammogram for malignant neoplasm of breast (principal); M81.0 Age-related osteoporosis without current pathological fracture
CPT/HCPCS: 77063; 77067; 77080

== ENCOUNTER → 2024-10-24 13:00 | Outpatient (BNV) | payer MEDICARE, OTHER, SELFPAY | PROVIDERS: PCP Internal Medicine; Visit Provider Radiology Diagnostic Radiology | DX: E28.39 Other primary ovarian failure (principal) | CPT/HCPCS: 77080 ==